=== PATIENT | male | born 1985 | race Caucasian/White ===

== ENCOUNTER 2020-05-22 16:03 | Outpatient (REF) | payer MEDICARE, MEDICAID, SELFPAY | END 2020-05-22 16:04 | disposition home or self-care (01) | LOC: HO.LAB 16:03 | PROVIDERS: PCP Family Medicine; Visit Provider Internal Medicine | DX: Z20.828 Contact with and (suspected) exposure to other viral communicable diseases (principal) | CPT/HCPCS: 87635 ==

== ENCOUNTER 2020-09-17 13:32 | Emergency (ER) | payer MEDICARE, MEDICAID, SELFPAY ==
[2020-09-17 14:23] VITALS: BP 150/102; PULSE 75; RESP 16; TEMP 36.5; O2SAT 98; BMI 34.2
--- NOTE | 2020-09-17 16:56 | ED.SKABFB ---
HPI - Skin/Abscess/Foreign Bdy General Chief complaint: Skin/Abscess/Foreign Body Stated complaint: CYST Time Seen by Provider: 09/17/20 16:56 Source: patient Mode of arrival: ambulatory Limitations: no limitations History of Present Illness HPI narrative: Pleasant 35-year-old male with past medical history that is significant for bipolar disorder, depression, hypertension, prior testicular abscess in fact I seen him in July 2020 for this where he had a testicular abscess that was I and D in the ED and subsequently started antibiotics seen by Dr. Reeder improved states for the past 2 days on the right side of scrotum he has tender area feeling like onset of the same abscess on the opposite side now. He denies any fever or chills. No testicular pain. Pain only to tender palpation over the scrotum. No penile shaft pain, discharge, redness or fever. No concern for STI. MD complaint: abscess/boil Onset (ago): day(s) (2 days ) Location: genitals (Right-sided scrotum) Severity: mild Relieving factors: none Treatments prior to arrival: none Related Data Previous Rx's Medication Instructions Recorded cephalexin 500 mg PO Q12H 7 Days #14 cap 09/17/20 doxycycline monohydrate 100 mg PO BID 10 Days #20 cap 09/17/20 ibuprofen 800 mg PO Q8H PRN #14 tab 09/17/20 Allergies Allergy/AdvReac Type Severity Reaction Status Date / Time No Known Allergies Allergy Unverified 04/19/20 15:27 Review of Systems Review of Systems: Constitutional: No Weight loss, No Fever, No Chills, No Night Sweats, No Fatigue, No Malaise ENT/Mouth: No Hearing loss, No Ear Pain, No Nasal Congestion, No Sinus Pain, No Hoarseness, No sore throat, No Rhinorrhea, No Swallowing Difficulty Eyes: No Eye Pain, No Swelling, No Redness, No Foreign Body, No Discharge, No Vision Changes Cardiovascular: No Chest Pain, No SOB, No Dyspnea on Exertion, No Orthopnea, No Edema, No Palpitations Respiratory: No Cough, No Sputum, No Wheezing, No Dyspnea Gastrointestinal: No Nausea, No Vomiting, No Diarrhea, No Constipation, No abdominal Pain, No Hematochezia, No Melena Genitourinary: No Dysuria, No Urinary Frequency, No Hematuria, No Urinary Incontinence, No Urgency, No Flank Pain, No Urinary Flow Changes, No Hesitancy Musculoskeletal: No joint pain, No Myalgias, No Joint Swelling Skin: No Skin Lesions, No rash, , testicular as noted per HPI Neuro: No Weakness, No Numbness, No Paresthesias, No Loss of Consciousness, No Dizziness, No Headache Psych: No Anxiety/Panic, No Depression, No SI/HI/AH/VH, No Social Issues Heme/Lymph: No Bruising, No Bleeding,No Lymphadenopathy Endocrine: No Polyuria, No Polydipsia, No Temperature Intolerance Yes all other systems are reviewed and are negative [facility] Past Medical History Medical History (Updated 09/18/20 @ 00:01 by Background Dasehba) No known health problems Social History Social History Smoked in Last 30 Days: No Use of substances other than those prescribed or required for medical reasons: No Advance Directives: No Advance Directives Information Provided: No Physical Exam Vital Signs: Vital Signs: Last Vital Signs Temp 98.4 F 09/17/20 17:57 Pulse 61 09/17/20 17:57 Resp 16 09/17/20 17:57 BP 144/82 H 09/17/20 17:57 Pulse Ox 97 09/17/20 17:57 Body Mass Index 34.2 Reviewed Const: General: cooperative and healthy appearing; No acute distress or intoxicated appearing Nutritional Appearance: average body habitus Orientation/consciousness: patient oriented x3 Chest: Chest palpation & inspection: normal inspection of the chest Resp: Effort & Inspection: normal respiratory effort Cardio: Jugular venous distension: no JVD Rhythm: regular rhythm Heart sounds: S1 normal heart sound present and S2 normal heart sound present GI: Inspection: Yes normal to inspection Percussion: Yes normal to percussion Auscultation: normal bowel sounds : General: Yes no CVA tenderness Male genitals images: 1. Hypertrophic area with slight induration/erythema to the mid anterior right scrotum. The testicle is movable and nontender, nonswollen bilaterally. Back/Spine/Pelvis: Back: no CVA tenderness Skin: General skin exam: no rashes or lesions noted Neuro: General: patient oriented x3 Extrem: General: Yes normal to inspection MDM - Skin/Abscess/Foreign Bdy MDM Narrative Medical decision making narrative: Early abscess to the subcutaneous tissue of the right-sided scrotum no drainable collection at this time will start him on p.o. antibiotics with close follow-up with Urology. Patient agreeable and comfortable plan. Differential Diagnosis Differential diagnosis: Likely abscess of skin or subcutaneous tissue and cellulitis; Unlikely viral exanthem, dermatophytosis, urticaria, herpes zoster, allergic reaction to drug, impetigo and contact dermatitis Discharge Plan Discharge Clinical Impression: Abscess of skin or subcutaneous tissue Patient Disposition: Home, Self-Care Instructions: Abscess (ED) Additional Instructions: You have a early forming cellulitis/abscess on the right testicle There is nothing to drain at this point Will start you on antibiotics Please follow-up with Dr. Reeder in next 2-3 days Return if any concerns or worsening symptoms Thank you Prescriptions: New doxycycline monohydrate 100 mg capsule 100 mg PO BID 10 Days Qty: 20 RF: 0 cephalexin 500 mg capsule 500 mg PO Q12H 7 Days Qty: 14 RF: 0 ibuprofen 800 mg tablet 800 mg PO Q8H PRN (Reason: pain) Qty: 14 RF: 0 Referrals: Jatin Reeder MD [Physician] - 2 days Interventions: ED Discharge Assessment Last Done: 09/17/20 17:58 Discharge Date/Time: 09/17/20 18:00
[2020-09-17 17:57] VITALS: BP 144/82; PULSE 61; RESP 16; TEMP 36.9; O2SAT 97
== END 2020-09-17 18:00 | disposition home or self-care (01) ==
PROVIDERS: Emergency Provider Internal Medicine; PCP Family Medicine
DX: N45.4 Abscess of epididymis or testis (principal)
CPT/HCPCS: 99283; 99284

== ENCOUNTER 2021-07-03 10:27 | Outpatient (REF) | payer MEDICARE, MEDICAID, SELFPAY | END 2021-07-03 10:28 | disposition home or self-care (01) | LOC: HO.LAB 10:27 | PROVIDERS: Visit Provider Internal Medicine | DX: Z20.822 Contact with and (suspected) exposure to COVID-19 (principal) | CPT/HCPCS: C9803; U0003; U0005 ==

== ENCOUNTER 2021-07-09 13:26 | Outpatient (REF) | payer MEDICARE, MEDICAID, SELFPAY | END 2021-07-09 13:27 | disposition home or self-care (01) | LOC: HO.LAB 13:26 | PROVIDERS: Visit Provider Internal Medicine | DX: Z20.822 Contact with and (suspected) exposure to COVID-19 (principal) | CPT/HCPCS: C9803; U0003; U0005 ==

== ENCOUNTER 2021-09-18 07:36 | Emergency (ER) | payer MEDICARE, MEDICAID, SELFPAY ==
[2021-09-18 07:38] VITALS: BP 158/93; PULSE 70; RESP 16; TEMP 36.1; O2SAT 98; BMI 38.3
[2021-09-18 07:52] VITALS: BP 158/108; PULSE 78; RESP 18; O2SAT 98; BMI 37.2
--- NOTE | 2021-09-18 07:54 | ED.DENTAL ---
HPI - Dental/Oral General Chief complaint: Dental/Oral Stated complaint: dental pain, facial swelling Time Seen by Provider: 09/18/21 07:53 Source: patient Mode of arrival: ambulatory Limitations: no limitations History of Present Illness HPI Narrative: 36 y/o male who woke up with upper left dental pain this morning. His upper jaw is mildly swollen. No fevers. Patient is able to swallow, can open his mouth all the way. Tooth is not sensitive to hot or cold. He does not feel any lumps inside of his mouth No nausea or vomiting Says 2 months ago he went to see the dentist to start him on antibiotics for teeth on the right side of his mouth. He does have a dentist at [facility]. MD Complaint: tooth pain Teeth map: 1. pain Onset (ago): hour(s) (2) Duration: constant Severity: moderate Severity scale (1-10): 5 Relieving factors: nothing Exacerbating factors: nothing Context: history of dental caries Treatment prior to arrival: none Related Data Previous Rx's Medication Instructions Recorded cephalexin 500 mg capsule 500 mg PO Q12H 7 Days #14 cap 09/17/20 doxycycline monohydrate 100 mg 100 mg PO BID 10 Days #20 cap 09/17/20 capsule ibuprofen 800 mg tablet 800 mg PO Q8H PRN #14 tab 09/17/20 clindamycin HCl 300 mg capsule 300 mg PO Q6H 10 Days #40 cap 09/18/21 Allergies Allergy/AdvReac Type Severity Reaction Status Date / Time No Known Allergies Allergy Unverified 09/18/21 08:07 Review of Systems Constitutional: Constitutional: Denies body ache(s), Denies chills, Denies fatigue, Denies fever(s), Denies headache(s), Denies malaise and Denies weakness Eyes: Eyes: Denies diplopia ENT: Reports dental pain, Denies dizziness, Denies otalgia, Denies headache(s), Denies mouth pain, Denies post nasal drip, Denies sinus pain, Denies sinus pressure and Denies sore throat Cardiovascular: Cardiovascular: Denies chest pain, Denies syncope, Denies lightheadedness, Denies palpitations and Denies dyspnea Respiratory: Respiratory: Denies chest congestion, Denies cough and Denies dyspnea Gastrointestinal: Gastrointestinal: Denies abdominal pain, Denies diarrhea, Denies nausea and Denies vomiting Musculoskeletal: Musculoskeletal: Reports no additional musculoskeletal complaints Neurologic: Denies confusion, Denies dizziness, Denies syncope, Denies headache(s) and Denies weakness Psychiatric: Psychiatric: Denies anxiety, Denies confusion and Denies depression Endocrine: Endocrine: Denies fatigue and Denies palpitations PMFSH Past Medical History Medical History No known health problems Social History Social History Advance Directives: No Advance Directives Information Provided: No Physical Exam Vital Signs: Vital Signs: Last Vital Signs Temp 98.1 F 09/18/21 08:00 Pulse 65 09/18/21 08:00 Resp 18 09/18/21 08:00 BP 159/86 H 09/18/21 08:00 Pulse Ox 98 09/18/21 08:00 BMI result Body Mass Index 37.2 Const: General: No confusion Nutritional Appearance: well nourished Orientation/consciousness: No confusion Limitations: no limitations HENMT: Head: Yes normal to inspection, Yes normocephalic and Yes atraumatic Ears: hearing grossly normal bilaterally General nose exam: Normal external nose present Face and sinus: Yes sinuses nontender, No erythema, No edema, No fluctuance, No sinus tenderness, Yes Facial tenderness on exam of face and sinuses (upper left maxilla) and No dry mucous membranes Mouth: Normal oral and palatal mucosa present, lip normal, tongue normal, Normal salivary glands and ducts present, oropharynx normal and moist mucous membranes Teeth and gingiva: caries and poor dentition Teeth image: 1. tender to tap 2. nub of tooth, brown, avulsed to gum line Throat: Yes posterior oropharynx normal, Yes tonsils normal and Yes uvula midline Eyes: Conjunctivae: conjunctivae normal Pupils: Equal, round and reactive pupils present EOM: EOMs intact bilaterally Neck: Neck: Yes full ROM, Yes no lymphadenopathy and Yes supple Resp: Effort & Inspection: normal respiratory effort and able to speak in complete sentences Auscultation: clear to auscultation bilaterally, no crackles, no rales, no rhonchi and no wheezes Cardio: Rate: regular rate Rhythm: regular rhythm Heart sounds: S1 normal heart sound present and S2 normal heart sound present Skin: General skin exam: no rashes or lesions noted Neuro: General: No confusion Cranial nerves: Yes Equal, round and reactive pupils present Extrem: General: Yes normal to inspection and Yes full ROM Psych: Appearance: grossly normal Affect: normal affect Attitude: cooperative Thought process: Normal thought process present Course Course Course Narrative: 36-year-old male with upper left dental pain that started this morning. Patient came to be seen early, so pain did not worsen. On exam, patient has very mildly swollen upper left face, has pain to palpation tooth 15 in upper left jaw, tooth 16 is avulsed to a nub. No gingival erythema, no gum abscess or fluctuance Counseled patient to call his dentist today, prescribed clindamycin, gave return precautions of fever, trouble opening his mouth, any other new or concerning symptoms. Discharge Plan Discharge Clinical Impression: Dental abscess Patient Disposition: Home, Self-Care Instructions: Dental Abscess (ED) Additional Instructions: Please call your dentist today, tell them you are in the emergency room, you need to make a follow-up appointment with them for your dental pain Please fill the prescription for antibiotic and take every 6 hours for the next 10 days. As we discussed, this can make you have some stomach upset, please take with food, and consider buying [id number] probiotics as this will help with stomach upset Please Duncan can take 2 days of taking the antibiotics for them to help with the pain. Please alternate Tylenol and ibuprofen for pain. Take 1 or the other every 4 hours. For example, at midnight take 1000 mg of Tylenol, then at 4:00 a.m. take 800 mg ibuprofen, at 8:00 a.m. take 1000 mg of Tylenol, at noon take 800 mg of ibuprofen, at 4:00 p.m. take 1000 mg of Tylenol, at 8:00 p.m. take 800 mg of ibuprofen. Do not exceed 3000 mg of Tylenol in 24 hours. This method is proven to be as effective as an opioid for pain control. Please return to the emergency room if you have fevers, worsening pain, nausea or vomiting, or any other new or concerning symptoms. Prescriptions: New clindamycin HCl 300 mg capsule 300 mg PO Q6H 10 Days Qty: 40 0RF No Action doxycycline monohydrate 100 mg capsule 100 mg PO BID 10 Days Qty: 20 0RF cephalexin 500 mg capsule 500 mg PO Q12H 7 Days Qty: 14 0RF ibuprofen 800 mg tablet 800 mg PO Q8H PRN (Reason: pain) Qty: 14 0RF Interventions: ED Discharge Assessment Last Done: 09/18/21 08:37 Discharge Date/Time: 09/18/21 08:37
[2021-09-18 08:00] VITALS: BP 159/86; PULSE 65; RESP 18; TEMP 36.7; O2SAT 98
== END 2021-09-18 08:37 | disposition home or self-care (01) ==
LOC: HO.ED 08:12
PROVIDERS: Emergency Provider Emergency Medicine; PCP Family Medicine
DX: K04.7 Periapical abscess without sinus (principal); K08.89 Other specified disorders of teeth and supporting structures
CPT/HCPCS: 99283; 99284

== ENCOUNTER 2022-04-04 18:59 | Emergency (ER) | payer MEDICARE, MEDICAID, SELFPAY | END 2022-04-04 20:06 | disposition left against medical advice (07) | PROVIDERS: Emergency Provider Emergency Medicine; PCP Family Medicine | DX: Z04.9 Encounter for examination and observation for unspecified reason (principal) ==

== ENCOUNTER 2022-04-04 21:02 | Emergency (ER) | payer MEDICARE, MEDICAID, SELFPAY ==
--- NOTE | ~2022-04-04 | US_ITS ---
EXAMINATION: US SCROTUM CLINICAL INFORMATION: Large mass in the scrotum. COMPARISON: None TECHNIQUE: A sonogram of the scrotum was performed assessing sanabria-scale appearance and color Doppler flow. Spectral Doppler analysis of the arterial and venous flow were performed in the testes bilaterally. FINDINGS: RIGHT: Right testicle measures 4.2 x 2.5 x 2.8 cm, volume 15 mL. No focal testicular parenchymal lesions are visualized. Spectral Doppler analysis of the arterial and venous flow is normal in the right testis. Right epididymal head is normal in size. No right hydrocele or varicocele is seen. Right epididymal Doppler flow is increased. There is a fat-containing right inguinal hernia extending into the scrotum. LEFT: Left testicle measures 4.6 x 2.7 x 2.5 cm, volume 16 mL. No focal testicular parenchymal lesions are visualized. Spectral Doppler analysis of the arterial and venous flow is normal in the left testis. Left epididymal head is normal in size. No left hydrocele or varicocele is seen. Left epididymal Doppler flow is normal. Within the inferior scrotum is a focal area of heterogeneous echotexture with peripheral hypervascularity in central hypovascularity measuring 4.0 x 3.5 x 1.6 cm suspicious for phlegmonous change/abscess formation. US/US scrotum IMPRESSION: * Focal area of scrotal wall thickening and heterogeneous echotexture reflective of probable phlegmonous change or developing abscess within the inferior scrotal wall measuring 4.0 x 2.5 x 1.6 cm. * Findings suggestive of right epididymitis. * Fat-containing right inguinal hernia extending into the scrotum. * No testicular torsion.
[2022-04-04 21:08] VITALS: BP 156/106; PULSE 74; RESP 99; TEMP 35.8; O2SAT 99; BMI 36.8
[2022-04-05 00:56] VITALS: BP 163/99; PULSE 62; RESP 16; TEMP 36.8; O2SAT 98
[2022-04-05 02:32] VITALS: BP 146/74; PULSE 68; RESP 16; TEMP 36.9; O2SAT 98
--- NOTE | 2022-04-05 02:59 | ED.GENADULT ---
HPI - General Adult General Chief complaint: Skin/Abscess/Foreign Body <PALMIRA Ruggiero Last Filed: 04/05/22 03:14> Stated complaint: Cyst <PALMIRA Ruggiero Last Filed: 04/05/22 03:14> Time Seen by Provider: 04/05/22 00:46 <PALMIRA Ruggiero Last Filed: 04/05/22 03:14> Source: patient <PALMIRA Ruggiero Last Filed: 04/05/22 03:14> Mode of arrival: ambulatory <PALMIRA Ruggiero Last Filed: 04/05/22 03:14> Limitations: no limitations <PALMIRA Ruggiero Last Filed: 04/05/22 03:14> History of Present Illness HPI narrative: Patient is a 37 year old male presenting to the emergency department today with a scrotum cyst. Patient states that over the last 3 weeks he has had 2 lumps on the right side of his scrotum. Patient states that one of them, the smaller one, popped and drained outward but the other one has only kept getting better. Patient denies any dizziness, lightheadedness, abdominal pain, nausea, vomiting, fever, chills, blurry vision, double vision, loss of vision, chest pain, difficulty breathing, shortness of breath, back pain, night sweats, pain with urination, increased urinary frequency, increased urinary urgency, blood in his urine or stool, syncope or a near syncopal episode, recent trauma or falls, bowel incontinence, bladder incontinence, bowel retention, bladder retention, or any other complaints at this time. <PALMIRA Ruggiero Last Filed: 04/05/22 03:14> Onset (ago): week(s) (3) <PALMIRA Ruggiero Last Filed: 04/05/22 03:14> Radiation: non-radiation <PALMIRA Ruggiero Last Filed: 04/05/22 03:14> Severity: mild <PALMIRA Ruggiero Last Filed: 04/05/22 03:14> Severity scale (1-10): 5 <PALMIRA Ruggiero Last Filed: 04/05/22 03:14> Pain Consistency: constant <PALMIRA Ruggiero Last Filed: 04/05/22 03:14> Relieving factors: none <PALMIRA Ruggiero Last Filed: 04/05/22 03:14> Exacerbating factors: none <PALMIRA Ruggiero Last Filed: 04/05/22 03:14> Associated symptoms: denies other symptoms <PALMIRA Ruggiero Last Filed: 04/05/22 03:14> Treatments prior to arrival: none <PALMIRA Ruggiero Last Filed: 04/05/22 03:14> Related Data Home medications: Previous Rx's Medication Instructions Recorded cephalexin 500 mg capsule 500 mg PO Q12H 7 days #14 caps 09/17/20 doxycycline monohydrate 100 mg 100 mg PO BID 10 days #20 caps 09/17/20 capsule ibuprofen 800 mg tablet 800 mg PO Q8H PRN pain #14 tabs 09/17/20 clindamycin HCl 300 mg capsule 300 mg PO Q6H 10 days #40 caps 09/18/21 <PALMIRA Ruggiero Last Filed: 04/05/22 03:14> Allergies/adverse reactions: Allergies Allergy/AdvReac Type Severity Reaction Status Date / Time No Known Allergies Allergy Unverified 09/18/21 08:07 <PALMIRA Ruggiero Last Filed: 04/05/22 03:14> Review of Systems Constitutional: Constitutional: Reports no additional constitutional complaints, Denies chills, Denies fever(s) and Denies night sweats <PALMIRA Ruggiero Last Filed: 04/05/22 03:14> Eyes: Eyes: Reports no additional eye complaints, Denies blurry vision, Denies change in vision, Denies diplopia, Denies eye discharge, Denies loss of vision and Denies eye pain <PALMIRA Ruggiero Last Filed: 04/05/22 03:14> ENT: Denies dizziness <PALMIRA Ruggiero - Last Filed: 04/05/22 03:14> Cardiovascular: Cardiovascular: Reports no additional cardiovascular complaints, Denies chest pain, Denies lightheadedness, Denies Loss of Consciousness and Denies dyspnea <PALMIRA Ruggiero Last Filed: 04/05/22 03:14> Respiratory: Respiratory: Reports no additional respiratory complaints and Denies dyspnea <PALMIRA Ruggiero - Last Filed: 04/05/22 03:14> Gastrointestinal: Gastrointestinal: Reports no additional gastrointestinal complaints, Denies abdominal pain, Denies melena, Denies hematochezia, Denies change in bowel habits and Denies change in stool character <PALMIRA Ruggiero - Last Filed: 04/05/22 03:14> Genitourinary: Genitourinary: Reports no additional male genitourinary complaints, Denies hematuria, Denies oliguria, Denies difficulty urinating, Denies dysuria, Reports testicular mass, Reports testicular pain, Denies urinary frequency, Denies urinary hesitancy, Denies urinary incontinence and Denies urinary urgency <PALMIRA Ruggiero - Last Filed: 04/05/22 03:14> Musculoskeletal: Musculoskeletal: Reports no additional musculoskeletal complaints, Denies numbness and Denies tingling <PALMIRA Ruggiero - Last Filed: 04/05/22 03:14> Neurologic: Denies dizziness, Denies loss of vision, Denies numbness and Denies tingling <PALMIRA Ruggiero - Last Filed: 04/05/22 03:14> Psychiatric: Psychiatric: Reports no additional psychiatric complaints <PALMIRA Ruggiero - Last Filed: 04/05/22 03:14> Endocrine: Endocrine: Reports no additional endocrine complaints <PALMIRA Ruggiero - Last Filed: 04/05/22 03:14> Hematologic/Lymphatic: Hematologic/Lymphatic: Reports no additional hematologic/lymphatic complaints <PALMIRA Ruggiero - Last Filed: 04/05/22 03:14> Allergic/Immunologic: Allergic/Immunologic: Reports no additional allergic/immunologic complaints <PALMIRA Ruggiero - Last Filed: 04/05/22 03:14> PMF Past Medical History Attestation statement: The following information was validated with the patient. <PALMIRA Ruggiero - Last Filed: 04/05/22 03:14> Source: old records reviewed <PALMIRA Ruggiero - Last Filed: 04/05/22 03:14> Medical History: Medical History No known health problems <PALMIRA Ruggiero - Last Filed: 04/05/22 03:14> Social History Social History: Social History Patient Tobacco Use Status: Current everyday Tobacco user Smoked in Last 30 Days: Yes Use of substances other than those prescribed or required for medical reasons: No Advance Directives: No <PALMIRA Ruggiero - Last Filed: 04/05/22 03:14> Physical Exam ED Vital Signs: Vital Signs - 24 hr 04/04/22 21:08 04/05/22 00:56 04/05/22 02:32 Temperature 96.4 F L 98.2 F 98.4 F Pulse Rate 74 62 68 Respiratory Rate 99 H 16 16 Blood Pressure 156/106 H 163/99 H 146/74 H Pulse Oximetry 99 98 98 Oxygen Delivery Method Room Air Room Air Room Air 04/05/22 05:32 Temperature 98.0 F Pulse Rate 63 Respiratory Rate 16 Blood Pressure 146/80 H Pulse Oximetry 98 Oxygen Delivery Method Room Air BMI result Body Mass Index 36.8 <PALMIRA Ruggiero - Last Filed: 04/05/22 03:14> Vital Signs - 24 hr 04/04/22 21:08 04/05/22 00:56 04/05/22 02:32 Temperature 96.4 F L 98.2 F 98.4 F Pulse Rate 74 62 68 Respiratory Rate 99 H 16 16 Blood Pressure 156/106 H 163/99 H 146/74 H Pulse Oximetry 99 98 98 Oxygen Delivery Method Room Air Room Air Room Air 04/05/22 05:32 Temperature 98.0 F Pulse Rate 63 Respiratory Rate 16 Blood Pressure 146/80 H Pulse Oximetry 98 Oxygen Delivery Method Room Air BMI result Body Mass Index 36.8 <Edilberto Mccloud MD - Last Filed: 04/05/22 09:21> Const General: cooperative, no acute distress, alert and awake <PALMIRA Ruggiero - Last Filed: 04/05/22 03:14> Nutritional Appearance: well nourished <PALMIRA Ruggiero - Last Filed: 04/05/22 03:14> Orientation/consciousness: patient oriented x3 <PALMIRA Ruggiero - Last Filed: 04/05/22 03:14> Limitations: no limitations <PALMIRA Ruggiero - Last Filed: 04/05/22 03:14> HENMT Head: Yes normal to inspection and Yes atraumatic <Loida Piers[place]ana [place] - Last Filed: 04/05/22 03:14> Ears: hearing grossly normal bilaterally and external ears normal <Loida PiersonPALMIRA anne - Last Filed: 04/05/22 03:14> General nose exam: Normal external nose present, no nasal discharge noted and no epistaxis <Loidajohanna Piers[place] - Last Filed: 04/05/22 03:14> Face and sinus: Yes normal facial exam, No abrasion and No laceration <Loidajohanna Piers[place] - Last Filed: 04/05/22 03:14> Mouth: Normal oral and palatal mucosa present, no drooling and no muffled voice <Loida Griffin [place] - Last Filed: 04/05/22 03:14> Eyes General: appearance normal, both eyes and all related structures <Loida [place] - Last Filed: 04/05/22 03:14> Periorbital: periorbital findings normal <Loida [place] - Last Filed: 04/05/22 03:14> Eyelids: Yes eyelids normal <Loida Piers[place] - Last Filed: 04/05/22 03:14> Conjunctivae: conjunctivae normal <Loida Griffin, [place] - Last Filed: 04/05/22 03:14> Pupils: Equal, round and reactive pupils present <Loidajohanna Piers[place] - Last Filed: 04/05/22 03:14> EOM: EOMs intact bilaterally <PALMIRA Ruggiero - Last Filed: 04/05/22 03:14> Neck Neck: Yes normal visual inspection, Yes full ROM and Yes no lymphadenopathy <Loida Gaby [place] - Last Filed: 04/05/22 03:14> Chest Chest palpation & inspection: normal inspection of the chest <PALMIRA Ruggiero - Last Filed: 04/05/22 03:14> Resp Effort & Inspection: normal respiratory effort and able to speak in complete sentences <PALMIRA Ruggiero - Last Filed: 04/05/22 03:14> Auscultation: clear to auscultation bilaterally <PALMIRA Ruggiero - Last Filed: 04/05/22 03:14> Cardio Rate: regular rate <PALMIRA Ruggiero - Last Filed: 04/05/22 03:14> Rhythm: regular rhythm <Loida Piersondayana [place] - Last Filed: 04/05/22 03:14> GI Inspection: Yes normal to inspection <Loida PiersonPALMIRA anne - Last Filed: 04/05/22 03:14> Scrotum: scrotal mass on the right firm and tender <Loidajohanna Piers[place] - Last Filed: 04/05/22 03:14> Neuro General: patient oriented x3 and moves all extremities <Loida Piersondayana PA - Last Filed: 04/05/22 03:14> Cranial nerves: Yes Equal, round and reactive pupils present <Loidajohanna Piersondayana PA - Last Filed: 04/05/22 03:14> Cognition (Neuro): normal cognition <Loida P[place] - Last Filed: 04/05/22 03:14> Motor exam (neuro): 5/5 motor strength present throughout <Loidajohanna Piers[place] - Last Filed: 04/05/22 03:14> Sensory Exam: Normal double simultaneous stimulation for sensation <Loida Piers[place] - Last Filed: 04/05/22 03:14> Coordination: [id number] test normal <Loidajohanna Piers[place] - Last Filed: 04/05/22 03:14> Extrem General: Yes normal to inspection, Yes full ROM and Yes capillary refill normal <Loida Piersondayana PA - Last Filed: 04/05/22 03:14> Psych Appearance: grossly normal <Loida PALMIRA Griffin - Last Filed: 04/05/22 03:14> Mental Status: mental status grossly normal <Loidajohanna PiersonPALMIRA anne - Last Filed: 04/05/22 03:14> Affect: normal affect <Loida Griffin PA - Last Filed: 04/05/22 03:14> Attitude: cooperative <PALMIRA Ruggiero - Last Filed: 04/05/22 03:14> Thought process: Normal thought process present <PALMIRA Ruggiero - Last Filed: 04/05/22 03:14> Thought content: Normal thought content present <PALMIRA Ruggiero - Last Filed: 04/05/22 03:14> Insight: Good insight present (Psych) <PALMIRA Ruggiero - Last Filed: 04/05/22 03:14> Course Course Course Narrative: [id number]: I assumed care of this patient from my colleague, physician emergency veterinary assistant Loida Griffin at 02:00 hours. I did interview and examine the patient. Patient states that he does to small lump in his right scrotum approximately 3 or 4 weeks prior. He believes that is approximately 1 cm in size. He states that he got slightly larger but then got smaller again. Three days prior however the lump became very large and painful. He also states that the skin of his scrotum became red. He states that he is having a constant, throbbing pain in his right scrotal area which is 8/10. He denied fever chills but he is having nausea. He did notice dysuria with no penile discharge. He states he did have an abscess to his scrotum in the past which required drainage. Patient's physical examination revealed a large firm mass to the right scrotum with surrounding erythema, the area is tender to palpation. The patient is uncircumcised and the ball the penis looks normal. There is no obvious urethral discharge. Duplex ultrasound radiology impression is as follows: IMPRESSION: * Focal area of scrotal wall thickening and heterogeneous echotexture reflective of probable phlegmonous change or developing abscess within the inferior scrotal wall measuring 4.0 x 2.5 x 1.6 cm. * Findings suggestive of right epididymitis. * Fat-containing right inguinal hernia extending into the scrotum. * No testicular torsion. Dictated By:Thomas Montero MD I did tiger text our urologist, Dr. Reeder. He recommended that the abscess be drained here in the emergency department. He also recommended a 14 day course of antibiotics. I did order normal saline IV x1 L, ceftriaxone 1 g IV morphine 4 mg IV, Zofran 4 mg IV and Toradol 30 mg IV. At the end of my shift, the patient's care was turned over to my colleague, physician emergency veterinary assistant Liz Cabezas who will drain the patient's abscess. We also obtain abscess wound culture, GC/ chlamydia urine test and urinalysis. <Edilberto Mccloud MD - Last Filed: 04/05/22 09:21> Medical Decision Making MDM Narrative Medical decision making narrative: Patient is a 37 year old male presenting to the emergency department today with scrotal swelling and pain. Patient's physical exam showed a large, firm, tender, mass to the right side of his scrotum. No warmth or erythema was appreciated. Patient's scrotal US is pending at this time. Patient's disposition pending scrotal US. Patient signed out to Dr. Mccloud. <PALMIRA Ruggiero - Last Filed: 04/05/22 03:14> Medical Records Medical records reviewed: Yes I reviewed the patient's medical records. <PALMIRA Ruggiero - Last Filed: 04/05/22 03:14> Discharge Plan Discharge Clinical Impression: Scrotal swelling, Scrotal abscess, Acute epididymitis <PALMIRA Ruggiero - Last Filed: 04/05/22 03:14> Patient Disposition: Still a Patient <PALMIRA Ruggiero - Last Filed: 04/05/22 03:14> Prescriptions: No Action doxycycline monohydrate 100 mg capsule 100 mg PO BID 10 Days Qty: 20 0RF cephalexin 500 mg capsule 500 mg PO Q12H 7 Days Qty: 14 0RF ibuprofen 800 mg tablet 800 mg PO Q8H PRN (Reason: pain) Qty: 14 0RF clindamycin HCl 300 mg capsule 300 mg PO Q6H 10 Days Qty: 40 0RF <PALMIRA Ruggiero - Last Filed: 04/05/22 03:14>
--- NOTE | 2022-04-05 03:23 | PC.NURSE ---
Pt c/o of R scrotal pain that he believes it to be a cyst. The pain radiates to the abdominal region. He noticed the 'cyst' about three weeks ago, but has grown concerned due to the 'cyst's' growth and increasing amount of pain he is experiencing.
[2022-04-05 05:32] VITALS: BP 146/80; PULSE 63; RESP 16; TEMP 36.7; O2SAT 98
--- NOTE | 2022-04-05 06:40 | PC.NURSE ---
no apparent distressed, pt is sleeping
[2022-04-05] MEDS: Ketorolac Tromethamine 15 MG/ML VIAL IVPUSH (09:01)
[2022-04-05] MEDS: Lidocaine HCl 2% PF/Epi 1:200 20 ML VIAL INFILTRATI (09:01)
[2022-04-05] MEDS: Morphine Sulfate 4 MG/ML CARTRIDGE IVPUSH (09:02)
[2022-04-05] MEDS: cefTRIAXone sodium 1 GM in 0.9 % Sodium Chloride 50 ML IV (09:02)
[2022-04-05] MEDS: ondansetron HCL 4 MG/2 ML VIAL IVPUSH (09:02)
[2022-04-05 11:00] LABS: Appearance Urine Clear; Color Urine Dark Yellow; Glucose Urine UA Negative (Negative); Leukocyte Esterase Urine Negative (Negative); Nitrite Urine Negative (Negative); PH 5.5 (5.0-9.0); Specific Gravity - Urine >= 1.030 (1.005-1.025); Urine Blood Negative (Negative); Urine Ketones Negative (Negative); Urine Protein Negative (Neg-Trace)
[2022-04-05 13:32] LABS: CT PCR NOT DETECTED (Not Detect.); NG PCR NOT DETECTED (Not Detect.)
== END 2022-04-05 11:31 | disposition home or self-care (01) ==
PROVIDERS: Emergency Provider Emergency Medicine Emergency Medical Services; PCP Family Medicine
DX: L72.9 Follicular cyst of the skin and subcutaneous tissue, unspecified (principal); N45.1 Epididymitis; K40.90 Unilateral inguinal hernia, without obstruction or gangrene, not specified as recurrent; N50.89 Other specified disorders of the male genital organs; Z20.822 Contact with and (suspected) exposure to COVID-19; Z20.2 Contact with and (suspected) exposure to infections with a predominantly sexual mode of transmission; Z79.899 Other long term (current) drug therapy
CPT/HCPCS: 55100; 76870; 81003; 87071; 87147; 87205; 87491; 87591; 96365; 96375; 99284; J0696; J1885; J2270; J2405

== ENCOUNTER 2022-12-18 00:01 | Emergency (ER) | payer MEDICARE, MEDICAID, SELFPAY ==
[2022-12-18 00:25] VITALS: BP 153/82; PULSE 87; RESP 18; TEMP 36.8; O2SAT 96; BMI 38.7
--- NOTE | 2022-12-18 03:49 | ED_ITS ---
HPI - Back Pain/Injury General Chief Complaint: Back Pain/Injury Stated Complaint: severe back spasm Time Seen by Provider: 12/18/22 03:36 Source: patient Mode of arrival: ambulatory Limitations: no limitations History of Present Illness HPI Narrative: 37-year-old male who presents emergency department for evaluation of back pain. Patient states that his friend moved into a new house and he was helping his friend moving clean out the house. He states that he was picking up items from the ground lifting over his head and throwing them into a dumpster. He does not recount any injury while he was working but when he went home he started to developed mid and lower back pain. He describes the pain is a pressure like pain which is constant is 10/10. Pain is worse with movement. He states that he used ice, heat, icy Hot and a muscle relaxant at home with no relief of his pain. He states that the pain is radiating to both hips. He denies any numbness or weakness in his legs. He denies loss of bowel or bladder control. He was not ill in any way prior to his back pain. He denied fever, chills or injection drug use. Related Data Previous Rx's Medication Instructions Recorded cephalexin 500 mg capsule 500 mg PO Q12H 7 days #14 caps 09/17/20 doxycycline monohydrate 100 mg 100 mg PO BID 10 days #20 caps 09/17/20 capsule ibuprofen 800 mg tablet 800 mg PO Q8H PRN pain #14 tabs 09/17/20 clindamycin HCl 300 mg capsule 300 mg PO Q6H 10 days #40 caps 09/18/21 cephalexin 500 mg capsule 500 mg PO QID 14 days #56 caps 04/05/22 doxycycline hyclate 100 mg tablet 100 mg PO BID 14 days #28 tabs 04/05/22 acetaminophen 500 mg tablet 1,000 mg PO Q6H PRN fever or pain 12/18/22 (Tylenol Extra Strength) #20 tabs cyclobenzaprine 10 mg tablet 10 mg PO TID PRN muscle pain or 12/18/22 spasm #20 tabs ibuprofen 400 mg tablet 400 mg PO TID PRN fever or pain 12/18/22 #30 tabs Allergies Allergy/AdvReac Type Severity Reaction Status Date / Time No Known Allergies Allergy Unverified 09/18/21 08:07 Review of Systems Review of Systems: Yes all other systems are reviewed and are negative [facility] Past Medical History [facility] Narrative: Social history: He does smoke cigarettes. He occasionally drinks alcohol. He denies drug use. Medical History No known health problems Social History Social History Patient Tobacco Use Status: Current everyday Tobacco user Smoked in Last 30 Days: No Use of substances other than those prescribed or required for medical reasons: No Advance Directives: No Advance Directives Information Provided: No Physical Exam Vital Signs: Vital Signs: Last Vital Signs Temp 98.3 F 12/18/22 00:25 Pulse 87 12/18/22 00:25 Resp 18 12/18/22 00:25 BP 153/82 H 12/18/22 00:25 Pulse Ox 96 12/18/22 00:25 O2 Del Method Room Air 12/18/22 00:25 BMI result Body Mass Index 38.7 Const: Other: Awake, alert, male patient, pleasant, cooperative, patient had significant difficulty sitting up on the stretcher secondary to his back pain and spasm, answers all questions appropriately. Elevated BMI of 38.8 HEENT: Head: Yes normal to inspection, Yes normocephalic and Yes atraumatic Ears: external ears normal General nose exam: Normal external nose present Face and sinus: Yes normal facial exam Mouth: Normal oral and palatal mucosa present Throat: Yes posterior oropharynx normal Eyes: General: appearance normal, both eyes and all related structures Pupils: Equal, round and reactive pupils present Neck: Neck: Yes normal visual inspection, Yes no lymphadenopathy, Yes trachea midline and Yes supple Chest: Chest palpation & inspection: normal inspection of the chest and normal palpation of entire chest wall Resp: Effort & Inspection: normal respiratory effort and able to speak in complete sentences Auscultation: clear to auscultation bilaterally Cardio: Rate: regular rate Rhythm: regular rhythm Heart sounds: S1 normal heart sound present, S2 normal heart sound present and no murmurs GI: Inspection: Yes normal to inspection Palpation (GI): Soft to palpation, nontender and no guarding Auscultation: normal bowel sounds Back/Spine/Pelvis: Other: No point tenderness palpation over his vertebrae, patient has significant tenderness palpation of his paraspinal muscles in the thoracic, lumbar and sacral areas. There is spasm of these muscles. He has negative straight leg raises bilaterally. Skin: General skin exam: no rashes or lesions noted Neuro: Cranial nerves: Yes CN's II-XII intact bilaterally and Yes Equal, round and reactive pupils present Cognition (Neuro): normal cognition Motor exam (neuro): 5/5 motor strength present throughout Extrem: General: Yes normal to inspection Psych: Appearance: grossly normal Speech and movement: Normal speech and movement present Affect: normal affect Attitude: cooperative Thought process: Normal thought process present Thought content: Normal thought content present Medical Decision Making Medical Decision Making MDM Narrative: 37-year-old male who presents emergency department for evaluation of back pain that started after he lifted multiple objects from the floor over his had to throw into a dumpster while he was helping his friend clean out his house. The patient did have significant tenderness with palpation of his paraspinal muscles in the thoracic lumbar and sacral area as well as spasm of these muscles. His neurologic exam is nonfocal. Patient was treated with ibuprofen 400 mg orally, Tylenol 1000 mg orally and Flexeril 10 mg orally. He was given prescription for these medications. He was given a work note . he was given printed instructions and discharged home Differential Diagnosis Differential diagnosis includes was not limited to muscle spasm, muscle strain, muscle sprain, disc disease, infectious process Discharge Plan Discharge Clinical Impression: Strain of muscle and tendon of back wall of thorax, initial encounter, Muscle spasm Acute lumbar myofascial strain Qualifiers: Encounter type: initial encounter Qualified Code(s): S39.012A - Strain of muscle, fascia and tendon of lower back, initial encounter Patient Disposition: Home, Self-Care Instructions: Acute Low Back Pain (ED) Additional Instructions: Back Pain Discharge Instructions: Take Motrin (ibuprofen) 200 mg pills, 2 pills every 6 hours as needed for pain. Take Tylenol (acetaminophen) 500 mg pills, 2 pills every 6 hours as needed for pain. Take Flexeril (cyclobenzaprine) 10 mg pills, 1 pill every 8 hours as needed for pain or muscle spasm. This is a prescription medication. This medication will make you sleepy, therefore do not drive or work while taking this medication. Apply ice for 15 minutes to the area that hurts on your back. Do this 4-6 times a day to help reduce the pain in your back. Continue with normal activities as tolerated since staying in bed and not moving around will make your pain worse. You can also try over the counter lidocaine patches as directed on the box to help with the pain. Please return to the Emergency Department or see your doctor immediately if your symptoms get worse or if you develop any new symptoms that are concerning you. Follow up with your doctor in 2 day. Please read the other printed discharge instructions on back pain. Please see work note Prescriptions: New cyclobenzaprine 10 mg tablet 10 mg PO TID PRN (Reason: muscle pain or spasm) Qty: 20 0RF acetaminophen [Tylenol Extra Strength] 500 mg tablet 1,000 mg PO Q6H PRN (Reason: fever or pain) Qty: 20 0RF ibuprofen 400 mg tablet 400 mg PO TID PRN (Reason: fever or pain) Qty: 30 0RF No Action doxycycline monohydrate 100 mg capsule 100 mg PO BID 10 Days Qty: 20 0RF cephalexin 500 mg capsule 500 mg PO Q12H 7 Days Qty: 14 0RF ibuprofen 800 mg tablet 800 mg PO Q8H PRN (Reason: pain) Qty: 14 0RF clindamycin HCl 300 mg capsule 300 mg PO Q6H 10 Days Qty: 40 0RF cephalexin 500 mg capsule 500 mg PO QID 14 Days Qty: 56 0RF doxycycline hyclate 100 mg tablet 100 mg PO BID 14 Days Qty: 28 0RF Stand Alone Forms: Work/School Release
[2022-12-18] MEDS: Cyclobenzaprine HCl 10 MG TABLET PO (04:14)
[2022-12-18] MEDS: Acetaminophen 325 MG TABLET 975 MG PO (04:15)
[2022-12-18] MEDS: Ibuprofen 400 MG TABLET PO (04:15)
== END 2022-12-18 04:21 | disposition home or self-care (01) ==
PROVIDERS: Emergency Provider Emergency Medicine Emergency Medical Services; PCP Family Medicine
DX: S29.012A Strain of muscle and tendon of back wall of thorax, initial encounter (principal); S39.012A Strain of muscle, fascia and tendon of lower back, initial encounter; X50.0XXA Overexertion from strenuous movement or load, initial encounter; Y93.E6 Activity, residential relocation; Y92.009 Unspecified place in unspecified non-institutional (private) residence as the place of occurrence of the external cause; Y99.9 Unspecified external cause status
CPT/HCPCS: 99283; 99284

== ENCOUNTER 2023-11-30 12:40 | Inpatient (IN) | payer MEDICARE, MEDICAID, SELFPAY ==
--- NOTE | 2023-11-30 | ECG_ITS ---
Test Reason : chest pain Blood Pressure : / mmHG Vent. Rate : 057 BPM Atrial Rate : 057 BPM P-R Int : 148 ms QRS Dur : 090 ms QT Int : 418 ms P-R-T Axes : 002 -06 006 degrees QTc Int : 406 ms Sinus bradycardia Minimal voltage criteria for LVH, may be normal variant ( R in aVL ) Nonspecific T wave abnormality Abnormal ECG No significant changes when compared with the previous EKG of 09 january 2016 Referred By: Generic ED Physician Electronically Signed By:ARABELLA PARDO
--- NOTE | 2023-11-30 12:57 | ED.GENADULT ---
HPI - General Adult General Chief complaint: Chest Pain Stated complaint: Chest pain Time Seen by Provider: 11/30/23 19:49 Source: patient Mode of arrival: ambulatory Limitations: no limitations History of Present Illness HPI narrative: Patient is a 38 year old assigned male at with no reported medical history presenting to the emergency department today with chest and left arm pain over the last 3 days. Patient states that over the last 3 days he has had worsening left sided arm pain and chest pain. Patient states that it is worse with exertion but still present at rest. Patient denies any dizziness, lightheadedness, abdominal pain, nausea, vomiting, fever, chills, blurry vision, double vision, loss of vision, difficulty breathing, shortness of breath, back pain, night sweats, pain with urination, increased urinary frequency, increased urinary urgency, blood in his urine or stool, syncope or a near syncopal episode, recent trauma or falls, bowel incontinence, bladder incontinence, bowel retention, bladder retention, or any other complaints at this time. Onset (ago): day(s) (3) Location: chest Radiation: extremity Severity: moderate Severity scale (1-10): 5 Quality: aching Pain Consistency: constant Relieving factors: none Exacerbating factors: other (exertion) Associated symptoms: chest pain Treatments prior to arrival: none Related Data Previous Rx's ?Medication ?Instructions ?Recorded cephalexin 500 mg capsule 500 mg PO Q12H 7 days #14 caps 09/17/20 doxycycline monohydrate 100 mg 100 mg PO BID 10 days #20 caps 09/17/20 capsule ibuprofen 800 mg tablet 800 mg PO Q8H PRN pain #14 tabs 09/17/20 clindamycin HCl 300 mg capsule 300 mg PO Q6H 10 days #40 caps 09/18/21 cephalexin 500 mg capsule 500 mg PO QID 14 days #56 caps 04/05/22 doxycycline hyclate 100 mg tablet 100 mg PO BID 14 days #28 tabs 04/05/22 acetaminophen 500 mg tablet 1,000 mg (2 x 500 mg) PO Q6H PRN 12/18/22 (Tylenol Extra Strength) fever or pain #20 tabs cyclobenzaprine 10 mg tablet 10 mg PO TID PRN muscle pain or 12/18/22 spasm #20 tabs ibuprofen 400 mg tablet 400 mg PO TID PRN fever or pain 12/18/22 #30 tabs Allergies Allergy/AdvReac Type Severity Reaction Status Date / Time No Known Allergies Allergy Verified 11/30/23 12:59 Review of Systems Constitutional: Constitutional: Reports no additional constitutional complaints, Denies chills, Denies fever(s) and Denies night sweats Eyes: Eyes: Reports no additional eye complaints, Denies blurry vision, Denies change in vision, Denies diplopia, Denies eye discharge, Denies loss of vision and Denies eye pain ENT: Denies dizziness Cardiovascular: Cardiovascular: Reports no additional cardiovascular complaints, Reports chest pain (radiating to left arm), Denies lightheadedness, Denies Loss of Consciousness and Denies dyspnea Respiratory: Respiratory: Reports no additional respiratory complaints and Denies dyspnea Gastrointestinal: Gastrointestinal: Reports no additional gastrointestinal complaints, Denies abdominal pain, Denies melena, Denies hematochezia, Denies change in bowel habits and Denies change in stool character Genitourinary: Genitourinary: Reports no additional male genitourinary complaints, Denies hematuria, Denies oliguria, Denies difficulty urinating, Denies dysuria, Denies urinary frequency, Denies urinary hesitancy, Denies urinary incontinence and Denies urinary urgency Musculoskeletal: Musculoskeletal: Reports no additional musculoskeletal complaints, Denies numbness and Denies tingling Neurologic: Denies dizziness, Denies loss of vision, Denies numbness and Denies tingling Psychiatric: Psychiatric: Reports no additional psychiatric complaints Endocrine: Endocrine: Reports no additional endocrine complaints Hematologic/Lymphatic: Hematologic/Lymphatic: Reports no additional hematologic/lymphatic complaints Allergic/Immunologic: Allergic/Immunologic: Reports no additional allergic/immunologic complaints [facility] Past Medical History Attestation statement: The following information was validated with the patient. Source: old records reviewed and nursing notes reviewed Medical History No known health problems Social History Social History Patient Tobacco Use Status: Current everyday Tobacco user Advance Directives: No Advance Directives Information Provided: Yes Do you have a plan to hurt others: No Plan Physical Exam ED Vital Signs: Vital Signs - 24 hr 11/30/23 12:58 Temperature 97.5 F Pulse Rate 77 Respiratory Rate 18 Blood Pressure 174/105 H Pulse Oximetry 96 Oxygen Delivery Method Room Air BMI result Body Mass Index 37.7 Const General: cooperative, no acute distress, alert and awake Nutritional Appearance: well nourished Orientation/consciousness: patient oriented x3 Limitations: no limitations HENMT Head: Yes normal to inspection and Yes atraumatic Ears: hearing grossly normal bilaterally and external ears normal General nose exam: Normal external nose present, no nasal discharge noted and no epistaxis Face and sinus: Yes normal facial exam, No abrasion and No laceration Mouth: Normal oral and palatal mucosa present, no drooling and no muffled voice Eyes General: appearance normal, both eyes and all related structures Periorbital: periorbital findings normal Eyelids: Yes eyelids normal Conjunctivae: conjunctivae normal Pupils: Equal, round and reactive pupils present EOM: EOMs intact bilaterally Neck Neck: Yes normal visual inspection, Yes full ROM and Yes no lymphadenopathy Chest Chest palpation & inspection: normal inspection of the chest Resp Effort & Inspection: normal respiratory effort and able to speak in complete sentences GI Inspection: Yes normal to inspection Neuro General: patient oriented x3 and moves all extremities Cranial nerves: Yes Equal, round and reactive pupils present Cognition (Neuro): normal cognition Motor exam (neuro): 5/5 motor strength present throughout Sensory Exam: Normal double simultaneous stimulation for sensation Coordination: [id number] test normal Extrem General: Yes normal to inspection, Yes full ROM and Yes capillary refill normal Psych Appearance: grossly normal Mental Status: mental status grossly normal Affect: normal affect Attitude: cooperative Thought process: Normal thought process present Thought content: Normal thought content present Insight: Good insight present (Psych) Course Course Course Narrative: This is an RME: Additional HPI, ROS, PE not included below will be deferred to primary provider. 38 yo m presents with chest pain X 3 days, worsening last few hours. Denies sob, nausea, vomiting, diarrhea. Reports radiation to left shoulder. Pt has been called multiple times,, no answer. Spoke to patient's emergency contact she will reach out to him to see if he will return to the emergency department. She states he left awhile ago. I did attempt to leave to voicemail on patient's phone for him to call back. Medical Decision Making Medical Decision Making MDM Narrative: Patient is a 38 year old assigned male at with no reported medical history presenting to the emergency department today with chest pain that radiates into his left arm. Patient's physical exam was unremarkable. Patient's blood work showed an initially elevated troponin of 64.6 and a repeat of 61.9. Patient's EKG nonspecific T wave abnormality. I spoke to the coding validator who recommended treating as an NSTEMI with IV Heparin, ASA, metoprolol, atorvastatin 80mg, and sublingual nitroglycerin. I spoke to the hospitalist team who agreed to admission. I explained my physical exam findings as well as all test results to the patient. I answered all questions asked by the patient. Patient verbalized agreement and understanding with this treatment plan and admission. Differential Diagnosis Differential Diagnoses: The differential diagnosis associated with the presentation includes NSTEMI STEMI ACS Chest pain Admission/Observation Consideration of admission/observation: Escalation of care including admission/observation considered Patient admitted. Consult Healthcare Provider Management of the patient was discussed with: Hospitalist (agreed to admission as noted in the MDM Rationale portion of this note.) and Metalworking Instructor (spoke to the coding validator as noted in the MDM Rationale portion of this note.) Lab Data [facility] Lab Attestation statement: I reviewed the patient's lab results. My interpretation of these results are in the MDM Rationale portion of this note. 11/30/23 14:40 11/30/23 14:40 Labs: Lab Results 11/30/23 11/30/23 Range/Units 14:40 19:33 WBC 5.2 (4.8-10.8) X10*3/uL RBC 4.85 (4.60-5.80) X10*6/uL Hgb 15.0 (14.0-18.0) g/dl Hct 42.5 (42.0-52.0) % MCV 87.6 (80.0-98.0) fL MCH 30.9 (27.0-33.0) pg MCHC 35.3 (31.0-36.0) g/dl RDW 13.0 (11.0-16.0) % Plt Count 292 (160-400) X10*3/uL MPV 8.8 L (9.4-12.4) fL Immature Gran % (Auto) 0.2 (0.0-0.4) % Neut % (Auto) 43.4 L (45-73) % Lymph % (Auto) 47.2 H (20-40) % [place] % (Auto) 6.1 (2-11) % Eos % (Auto) 2.3 (0-4) % Baso % (Auto) 0.8 (0-2) % Lymph # (Auto) 2.5 (1.2-4.9) X10*3/uL [place] # (Auto) 0.3 (0.1-1.2) X10*3/uL Eos # (Auto) 0.1 (0.0-0.4) X10*3/uL Baso # (Auto) 0.0 (0.0-0.2) X10*3/uL Abs Immat Gran (auto) 0.01 (0.00-0.03) X10*3/uL Absolute Neuts (auto) 2.3 (2.0-8.3) x10*3/uL Absolute Nucleated RBC 0.000 (0.0-0.012) X10*3/uL Nucleated RBC % (auto) 0.0 (0.0-0.2) /100WBC Sodium 139 (135-145) mmol/L Potassium 4.1 (3.3-5.1) mmol/L Chloride 106 (96-108) mmol/L Carbon Dioxide 25 (22-29) mmol/L Anion Gap 12 (12-20) BUN 7 L (9-16) mg/dL Creatinine 0.94 (0.5-1.4) mg/dL Estim Creat Clear Calc 124.3 Estimated GFR > 60 Random Glucose 102 (60-115) mg/dL Calcium 9.2 (8.4-10.2) mg/dL Magnesium 2.4 (1.6-2.6) mg/dL Total Bilirubin 0.4 (0.0-1.0) mg/dL AST 38 H (5-37) U/L ALT 77 H (0-40) U/L Alkaline Phosphatase 80 (39-117) U/L Troponin I High Sens 64.6 H 61.9 H (<3.5-35.0) ng/L Total Protein 7.8 (6.5-8.0) g/dL Albumin 4.4 (3.5-5.0) g/dL Independent Interpretation I performed an independent interpretation of an: EKG Interpretation: Vent. Rate: 057 BPM Atrial Rate: 057 BPM P-R Int: 148 ms QRS Dur: 090 ms QT Int: 418 ms P-R-T Axes: 002 -06 006 degrees QTc Int: 406 ms Sinus bradycardia Minimal voltage criteria for LVH, may be normal variant ( R in aVL ) Nonspecific T wave abnormality Abnormal ECG DD/ 1431 Critical Care Time Critical Care Time Critical Care Time: Yes Total Critical Care Time: 122 Attestation: I spent 122 minutes of Critical Care Time with this patient. This does not include time spent on separately reported billable procedures. Discharge Plan Discharge Clinical Impression: Chest pain, Acute non-ST elevation myocardial infarction (NSTEMI) Patient Disposition: Admitted As Inpatient Prescriptions: No Action doxycycline monohydrate 100 mg capsule 100 mg PO BID 10 Days Qty: 20 0RF cephalexin 500 mg capsule 500 mg PO Q12H 7 Days Qty: 14 0RF ibuprofen 800 mg tablet 800 mg PO Q8H PRN (Reason: pain) Qty: 14 0RF clindamycin HCl 300 mg capsule 300 mg PO Q6H 10 Days Qty: 40 0RF cephalexin 500 mg capsule 500 mg PO QID 14 Days Qty: 56 0RF doxycycline hyclate 100 mg tablet 100 mg PO BID 14 Days Qty: 28 0RF cyclobenzaprine 10 mg tablet 10 mg PO TID PRN (Reason: muscle pain or spasm) Qty: 20 0RF acetaminophen [Tylenol Extra Strength] 500 mg tablet 1,000 mg PO Q6H PRN (Reason: fever or pain) Qty: 20 0RF ibuprofen 400 mg tablet 400 mg PO TID PRN (Reason: fever or pain) Qty: 30 0RF Print Language: Lao
[2023-11-30 12:58] VITALS: BP 174/105; PULSE 77; RESP 18; TEMP 36.4; O2SAT 96; BMI 37.7
[2023-11-30 14:44] LABS: MANUAL DIFF FLAG NO
[2023-11-30 14:46] LABS: Basophils Percent Auto 0.8 % (0-2); Eosinophils Absolute Auto 0.1 X10*3/uL (0.0-0.4); Eosinophils Percent Auto 2.3 % (0-4); Hematocrit 42.5 % (42.0-52.0); Imm Gran Abs Auto 0.01 X10*3/uL (0.00-0.03); Imm Gran Pct Auto 0.2 % (0.0-0.4); Lymphocytes Absolute Auto 2.5 X10*3/uL (1.2-4.9); Lymphocytes Percent Auto 47.2 % (20-40); Mean Corpuscular HGB Conc 35.3 g/dl (31.0-36.0); Mean Corpuscular Hemoglobin 30.9 pg (27.0-33.0); Mean Corpuscular Volume 87.6 fL (80.0-98.0); Mean Platelet Volume 8.8 fL (9.4-12.4); Monocytes Absolute Auto 0.3 X10*3/uL (0.1-1.2); Monocytes Percent Auto 6.1 % (2-11); Neutrophils Absolute Auto 2.3 x10*3/uL (2.0-8.3); Neutrophils Percent Auto 43.4 % (45-73); Platelet Count 292 X10*3/uL (160-400); Red Blood Count 4.85 X10*6/uL (4.60-5.80); White Blood Count 5.2 X10*3/uL (4.8-10.8)
[2023-11-30 15:03] LABS: Alanine Aminotransferase 77 U/L (0-40); Albumin Level 4.4 g/dL (3.5-5.0); Alkaline Phosphatase 80 U/L (39-117); Anion Gap 12 (12-20); Aspartate Amino Transferase 38 U/L (5-37); Bilirubin Total 0.4 mg/dL (0.0-1.0); Blood Urea Nitrogen 7 mg/dL (9-16); Calcium 9.2 mg/dL (8.4-10.2); Carbon Dioxide 25 mmol/L (22-29); Chloride 106 mmol/L (96-108); Creatinine Clr Calc Pharmacy 124.3; Estimated Glomerular Filt Rate > 60; Glucose Random 102 mg/dL (60-115); Magnesium 2.4 mg/dL (1.6-2.6); Potassium 4.1 mmol/L (3.3-5.1); Sodium 139 mmol/L (135-145); Total Protein 7.8 g/dL (6.5-8.0)
[2023-11-30 15:11] LABS: Troponin-I High Sensitivity 64.6 ng/L (<3.5-35.0)
--- NOTE | 2023-11-30 19:28 | ECG_ITS ---
Test Reason : chest pain Blood Pressure : / mmHG Vent. Rate : 076 BPM Atrial Rate : 076 BPM P-R Int : 146 ms QRS Dur : 094 ms QT Int : 356 ms P-R-T Axes : -01 -10 054 degrees QTc Int : 400 ms Normal sinus rhythm Moderate voltage criteria for LVH, may be normal variant ( R in aVL , Victor product ) Nonspecific T wave abnormality Abnormal ECG When compared with ECG of 30-NOV-2023 14:31, Nonspecific ST and T wave abnormality more prominent Referred By: Que Mosqueda Electronically Signed By:ARABELLA PARDO
[2023-11-30 19:56] LABS: Troponin-I High Sensitivity 61.9 ng/L (<3.5-35.0)
--- NOTE | 2023-11-30 20:38 | PHA.MEDREC ---
Pharmacy Consult ? Medication Reconciliation Pharmacy has completed the medication reconciliation. Patient reports no medicaitons at home. Kristin Quintana, BrianD
[2023-11-30 20:54] LABS: Hematocrit 40.4 % (42.0-52.0); Hemoglobin 14.3 g/dl (14.0-18.0); Mean Corpuscular HGB Conc 35.4 g/dl (31.0-36.0); Mean Corpuscular Volume 87.4 fL (80.0-98.0); Mean Platelet Volume 8.9 fL (9.4-12.4); Platelet Count 283 X10*3/uL (160-400); Red Blood Count 4.62 X10*6/uL (4.60-5.80); Red Cell Distribution Width 13.1 % (11.0-16.0); White Blood Count 5.9 X10*3/uL (4.8-10.8)
--- NOTE | 2023-11-30 20:55 | P.HPHOSP_ITS ---
History of Present Illness Date of Service: 11/30/23 Chief Complaint: Chest pain This is a 38-year-old male with no pertinent past medical history and not on prescription medications who presents to the emergency department for evaluation of chest discomfort. Patient states he 1st had left-sided chest discomfort 2 days prior to presentation. This was when he was walking 4.5 miles in an attempt to lose weight. The pain has been constant over the last 2 days. No relieving factors. It is exacerbated with stress and walking. Patient had radiation to the left arm on the day of presentation. No sweating or nausea, vomiting. No family history of early heart attacks. Admits smoking tobacco every day. Also consumes alcohol but no history of alcohol withdrawals. No history of essential hypertension or diabetes. No fever, chills, palpitations, shortness of breath, abdominal pain, changes in urinary or bowel habits. In the emergency department, troponin was found to be elevated and patient was initiated on IV heparin Review of Systems 2 Constitutional: Constitutional: Reports no additional constitutional complaints Cardiovascular: Cardiovascular: Reports chest pain and Reports chest pain at rest Respiratory: Respiratory: Reports no additional respiratory complaints Gastrointestinal: Gastrointestinal: Reports no additional gastrointestinal complaints Genitourinary: Genitourinary: Reports no additional male genitourinary complaints [facility] Medical History No known health problems Pertinent family history: No family history of early CAD Social History Patient Tobacco Use Status: Current everyday Tobacco user Advance Directives: No Advance Directives Information Provided: Yes Do you have a plan to hurt others: No Plan Meds Allergies Allergy/AdvReac Type Severity Reaction Status Date / Time No Known Allergies Allergy Verified 11/30/23 12:59 Active Medications: Current Medications Acetaminophen (Acetaminophen 325 Mg Tablet) 650 mg PO Q6H PRN PRN Reason: Pain, Mild (Pain Scale 1-3) Aspirin (Aspirin 81 Mg Tab.Chew) 81 mg PO DAILY [place] Atorvastatin Calcium (Atorvastatin Calcium 40 Mg Tablet) 40 mg PO BEDTIME [place] Heparin Sodium (Porcine) (Heparin Sodium,Porcine 5,000 Unit/Ml Vial) 4,400 unit 40 unit/kg (4400 unit) IVPUSH PROTOCOL BOLUS PRN; Protocol PRN Reason: 40 unit/kg - Heparin Protocol Heparin Sodium (Porcine) (Heparin Sodium,Porcine 5,000 Unit/Ml Vial) 8,700 unit 80 unit/kg (8700 unit) IVPUSH PROTOCOL BOLUS PRN; Protocol PRN Reason: 80 unit/kg - Heparin Protocol Heparin Sodium/Sodium Chloride (Heparin Sodium,Porcine/1/2ns) 25,000 unit in 250 mls @ 0 mls/hr IVCONT .Q0M [place]; Protocol Melatonin (Melatonin 3 Mg Tablet) 6 mg PO BEDTIME PRN PRN Reason: Insomnia Metoprolol Tartrate (Metoprolol Tartrate 25 Mg Tablet) 25 mg PO BID [place]; Protocol Nitroglycerin (Nitroglycerin 0.4 Mg Tab.Subl) 0.4 mg SUBLINGUAL Q5MX3 PRN PRN Reason: Chest Pain Ondansetron HCl (Ondansetron Hcl 4 Mg/2 Ml Vial) 4 mg IVPUSH Q8H PRN PRN Reason: Nausea and Vomiting Sodium Chloride (0.9 % Sodium Chloride Flush 3 Ml Syringe) [facility] Medications ?Medication ?Instructions ?Recorded ?Confirmed ?Last Taken ?Type No Known Home Meds 11/30/23 11/30/23 Unknown History Physical Exam 2 Vital Signs and Narrative: Vital Signs: Last Vital Signs Temp 97.5 F 11/30/23 12:58 Pulse 77 11/30/23 12:58 Resp 18 11/30/23 12:58 BP 174/105 H 11/30/23 12:58 Pulse Ox 96 11/30/23 12:58 O2 Del Method Room Air 11/30/23 12:58 BMI result Body Mass Index 37.7 Middle-aged male lying in bed in no distress Neck supple, no JVD Regular rate and rhythm, S1-S2 heard Regular breath sounds bilaterally, no wheezing or crackles appreciated Abdomen soft nontender, no guarding, no rigidity Patient is awake, alert and oriented to self, place, time and person ; no focal motor deficit Psych: Normal mood No pedal edema Results Labs 11/30/23 20:45 11/30/23 14:40 Labs: Laboratory Results - last 24 hr 11/30/23 11/30/23 11/30/23 14:40 19:33 20:45 MCV 87.6 87.4 MCH 30.9 31.0 MCHC 35.3 35.4 RDW 13.0 13.1 Plt Count 292 283 MPV 8.8 L 8.9 L Immature Gran % (Auto) 0.2 Neut % (Auto) 43.4 L Lymph % (Auto) 47.2 H [place] % (Auto) 6.1 Eos % (Auto) 2.3 Baso % (Auto) 0.8 Lymph # (Auto) 2.5 [place] # (Auto) 0.3 Eos # (Auto) 0.1 Baso # (Auto) 0.0 Abs Immat Gran (auto) 0.01 Absolute Neuts (auto) 2.3 Absolute Nucleated RBC 0.000 0.000 Nucleated RBC % (auto) 0.0 0.0 Anion Gap 12 Estim Creat Clear Calc 124.3 Estimated GFR > 60 Random Glucose 102 Calcium 9.2 Magnesium 2.4 Total Bilirubin 0.4 AST 38 H ALT 77 H Alkaline Phosphatase 80 Troponin I High Sens 64.6 H 61.9 H Total Protein 7.8 Albumin 4.4 Assessment and Plan (1) Acute non-ST elevation myocardial infarction (NSTEMI): Status: Acute Plan This is a 38-year-old male with no pertinent past medical history and not on prescription medications who presents to the emergency department for evaluation of chest discomfort. #. NSTEMI: Will admit patient with cardiac monitoring. Initiated on IV heparin. Ordered aspirin, high-intensity statin and beta-greyson. Consulting Cardiology, appreciate assistance. Obtaining echo #. Tobacco use disorder: Counseled regarding cessation. Refused nicotine patch #. Alcohol use disorder. Monitor CIWA #. Elevated transaminases, mild: Outpatient follow-up DVT prophylaxis: IV heparin Full code Admit as inpatient and will require two night minimum hospital stay for IV heparin (as above), which is not possible in a lesser acute setting. Specialist consult pending Quality Stroke Does the patient have a stroke diagnosis?: No VTE Prior VTE?: No VTE Risk Level:: Medical - moderate - high VTE Device Contraindication: Treatment Not Indicated VTE Drug Contraindication: N/A - Med Ordered
[2023-11-30 21:02] LABS: INTERNATIONAL NORM RATIO 0.9 (0.9-1.1)
[2023-11-30] MEDS: Heparin Sodium,Porcine 5,000 UNIT/ML VIAL 4000 UNIT IVPUSH (21:08)
[2023-11-30] MEDS: Heparin Sodium,Porcine/1/2NS 25,000 UNIT/250 ML IV.SOLN 10 UNIT IVCONT (21:10)
--- NOTE | 2023-11-30 21:12 | PC.NURSE ---
Heparin drip infusing per MAR.
[2023-11-30 22:04] VITALS: BP 175/87; PULSE 65
[2023-11-30] MEDS: Aspirin 81 MG TAB.CHEW 324 MG PO (22:04)
[2023-11-30] MEDS: Metoprolol Succinate ER 50 MG TAB.ER.24H PO (22:04)
[2023-11-30 22:05] VITALS: BP 175/87; PULSE 65
[2023-11-30] MEDS: Nitroglycerin 0.4 MG TAB.SUBL SUBLINGUAL (22:05)
[2023-11-30] MEDS: Atorvastatin Calcium 80 MG TABLET PO (22:08)
[2023-12-01] VITALS (10 sets, daily range): BP systolic 142–176; BP diastolic 63–103; PULSE 51–60; RESP 14–18; TEMP 36.6–36.7; O2SAT 97–98
--- NOTE | 2023-12-01 00:20 | MHC.EDTECH ---
This tech took over care of patient at 2300,hourly rounds and vitals completed,belongings list completed and copy placed in chart,call luciano in reach
--- NOTE | 2023-12-01 03:26 | MHC.EDTECH ---
Hourly rounds and vitals completed,patient is resting at this time,call luciano in reach
[2023-12-01 03:57] LABS: PTT Heparin Drip 76.3 SEC (53-77.9)
[2023-12-01 05:25] LABS: MANUAL DIFF FLAG NO
[2023-12-01 05:26] LABS: Basophils Percent Auto 0.6 % (0-2); Eosinophils Absolute Auto 0.2 X10*3/uL (0.0-0.4); Hematocrit 40.1 % (42.0-52.0); Hemoglobin 14.2 g/dl (14.0-18.0); Imm Gran Abs Auto 0.01 X10*3/uL (0.00-0.03); Imm Gran Pct Auto 0.2 % (0.0-0.4); Lymphocytes Absolute Auto 3.6 X10*3/uL (1.2-4.9); Lymphocytes Percent Auto 57.1 % (20-40); Mean Corpuscular HGB Conc 35.4 g/dl (31.0-36.0); Mean Corpuscular Hemoglobin 31.3 pg (27.0-33.0); Mean Corpuscular Volume 88.5 fL (80.0-98.0); Mean Platelet Volume 8.8 fL (9.4-12.4); Monocytes Absolute Auto 0.4 X10*3/uL (0.1-1.2); Monocytes Percent Auto 5.5 % (2-11); Neutrophils Absolute Auto 2.2 x10*3/uL (2.0-8.3); Neutrophils Percent Auto 33.6 % (45-73); Platelet Count 278 X10*3/uL (160-400); Red Blood Count 4.53 X10*6/uL (4.60-5.80); Red Cell Distribution Width 13.2 % (11.0-16.0); White Blood Count 6.4 X10*3/uL (4.8-10.8)
--- NOTE | 2023-12-01 05:27 | MHC.EDTECH ---
Hourly rounds and vitals completed,BP elevated 173/103 RN aware. Patient is watching TV and is comfortable, at bedside
[2023-12-01 05:34] LABS: INTERNATIONAL NORM RATIO 0.9 (0.9-1.1)
[2023-12-01 05:40] LABS: Anion Gap 14 (12-20); Blood Urea Nitrogen 10 mg/dL (9-16); Calcium 9.1 mg/dL (8.4-10.2); Carbon Dioxide 22 mmol/L (22-29); Chloride 107 mmol/L (96-108); Creatinine Clr Calc Pharmacy 134.3; Estimated Glomerular Filt Rate > 60; Glucose Random 110 mg/dL (60-115); Potassium 3.9 mmol/L (3.3-5.1); Sodium 139 mmol/L (135-145)
[2023-12-01 05:48] LABS: Troponin-I High Sensitivity 65.2 ng/L (<3.5-35.0)
--- NOTE | 2023-12-01 05:53 | MHC.EDTECH ---
Patient ambulated to the bathroom with a steady gait
--- NOTE | 2023-12-01 06:05 | PC.NURSE ---
Pt 38 y male presented for chest tightness. Pt was in waiting room but left and called back by provider for elevated troponin. Pt came back and lab rechecked Odnwtird20.6 and 61.9. IV line placed #18 R-AC. Pt started on Heparin gtt running at 9.16unit/kg/hr or 10ml and bolus given. PTT-HD 76.3, no change, repeat due at 0915. Pt also given atorvastatin, asa 324mg, nitro 0.4 mg SL and metoprolol XL. Pt A & O X 4, Chest tightness improved after Nitro. HR SR and SB in 50's. independent at baseline. Pt reports he is a 3-4 beer (20oz) drinker about every other day. No history of alcohol withdrawal; last drink was Thursday. CIWA-0. Pt ambulate to BR independently BM today.
--- NOTE | 2023-12-01 06:13 | PC.NURSE ---
HR 45-55 and BP 170's/100's. Pt asymptomatic. notified. No new orders at this time. Plan of care on going.
--- NOTE | 2023-12-01 07:00 | CA_ITS ---
Transthoracic Echocardiogram Patient (Last, First, Middle): Lito Trujillo, Gender: Male Date of : 1985 Age: 38 Procedure Date: 12/01/2023 Procedure Type: Transthoracic Echocardiogram Location: ER Height: 170.18 cm Weight: 108.86 kg BSA: 2.18 m2 Heart Rate: bpm BP: 174 / 96 mmHg Leather Tanner: Referring MD: Catrachito Wilkinson MD Symptoms: NSTEMI Study Quality: Adequate/contrast ECG Rhythm: Sinus Conclusions: - The left ventricular systolic function is normal. The calculated ejection fraction is 60% by biplane method. - Cannot exclude hypokinesis in the basal inferior/ inferoseptal wall. - There is mildly increased left ventricular wall thickness. - No obvious valvular pathology seen on this study. Findings Procedure Information Contrast agent, definity, is being given per protocol without apparent complications. Left Ventricle Normal left ventricular cavity size. There is mildly increased left ventricular wall thickness. The left ventricular systolic function is normal. The calculated ejection fraction is 60% by biplane method. Diastolic function is normal for age. Cannot exclude hypokinesis in the basal inferior/ inferoseptal wall. Right Ventricle Normal right ventricular cavity size and systolic function. Atria The left atrium is mildly dilated. The right atrium is normal in size. Aortic Valve There is a normal trileaflet aortic valve. There is no aortic valve stenosis. There is no aortic valve regurgitation. Mitral Valve The mitral valve appears normal. There is no mitral valve regurgitation. There is no mitral valve stenosis. Pulmonic Valve The pulmonic valve is likely normal. Tricuspid Valve There is trace tricuspid valve regurgitation. There is no evidence of pulmonary hypertension. Great Vessels The asc aorta is normal in size. Venous The inferior vena cava is normal in size and collapses greater than 50% with inspiration. Pericardium/Pleural There is a trivial pericardial effusion. Prior Study Comparison No prior study available for comparison. Recommendations, Care & Conclusions No obvious valvular pathology seen on this study. Measurements 2D Linear Measurements IVSd: 1.28 0.6-0.9/0.6-1.0 cm LVIDd: 4.97 3.9-5.3/4.2-5.9 cm LVIDd Index: 2.28 2.4-3.2/2.2-3.1 cm/m2 LVIDs: 3.19 2.0-3.6 cm LVPWd: 1.23 0.7-1.1 cm Ao Root: 3.50 2.1-3.5 cm LA Diam: 4.70 2.7-3.8/3.0-4.0 cm LAIDs Index: 2.16 1.5-2.3 cm/m2 LV Mass: 307.58 67-162/88-224 g LV Mass Index: 141.09 43-95/49-115 g/m2 LVOT Diam: 2.40 3.0+(-)1.3 cm 2D Systolic Function EF 4C: 58.80 >55% EF 2C: 57.80 >55% EF BiP: 59.80 >55% Mitral Valve MV Pk E: 0.81 MV PK A: 0.41 MV Decel Time: 149.00 E/A: 2.00 E'Lateral: 12.00 E'Medial: 9.14 E/E' Med: 8.80 E/E' Lat: 6.70 PHT: 44.00 MVA PHT: 5.00 Decel [place]: 5.39 Aortic Valve AoV Pk Jermaine: 1.23 AoV Mn Jermaine: 0.77 AoV VTI: 0.28 AoV Pk Grad: 6.00 Aov Mn Grad: 3.00 JAIRON Cont.VTI: 3.39 LVOT LVOT Pk Jermaine: 0.89 LVOT Mn Jermaine: 0.61 LVOT VTI: 0.21 LVOT Pk Grad: 3.00 LVOT Mn Grad: 2.00 LVOT Diam: 2.40 LVOT Area: 4.52 Diastolic Function MV Pk E: 0.81 MV Pk A: 0.41 E/A: 2.00 E'Medial: 9.14 E/E' Med: 8.80 E' Laterial: 12.00 E/E' Lat: 6.70 Right Ventricle TAPSE (mm): 30.40 TVS' Jermaine: 11.20 Tricuspid Valve TR Pk Jermaine: 2.29 TR Pk Grad: 21.00 RA Press: 3.00 RVSP: 24.00 Great Vessels Aorta Ao Root-2D: 3.50 2.0-3.7 cm Ao Asc: 3.00 2.1-3.4 cm Pulmonary Valve PV Pk Jermaine: 0.90 Peak PV Grad: 3.00 Updated in Other Vendor System with Status of Final Froilan Menezes MD electronically signed on 12/01/2023 10:27:52 AM with status of Final
[2023-12-01] MEDS: Aspirin 81 MG TAB.CHEW PO (08:51)
[2023-12-01] MEDS: amLODIPine Besylate 5 MG TABLET PO (08:51)
--- NOTE | 2023-12-01 09:03 | PC.NURSE ---
ep technologist at bedside
--- NOTE | 2023-12-01 09:28 | PM.CNCAR ---
History of Present Illness History of Present Illness Date of Service: 12/01/23 Chief complaint: Chest pain Narrative: This is a cardiology consultation regarding chest pain. Patient denies any history of previous cardiovascular or in fact any major health issues. He is fairly active with no major limitations. He states that for the last 3 days or so, he has been having left-sided chest discomfort. He describes it as a pressure/squeezing in the left chest. It was also radiating down the left arm and all the way into the left hand. It is somewhat continuous pain. He came to the ER last night and EKG showed LVH but no clear ischemic findings otherwise. Troponins were slightly high. He was admitted as NSTEMI. He states he was having pain truly came to the ER but overnight, he has been okay. He is on IV heparin drip. Blood pressure seems high but he states he does not have a history of hypertension. He denies drug use. Smoker. Review of Systems Review of Systems: Yes all other systems are reviewed and are negative Constitutional: Constitutional: Reports as per HPI and Reports no additional constitutional complaints Eyes: Eyes: Reports as per HPI and Denies no additional eye complaints ENT: Denies system reviewed and no additional complaints, except as documented and Reports as per HPI Cardiovascular: Cardiovascular: Reports as per HPI, Reports no additional cardiovascular complaints, Denies acrocyanosis, Denies cool extremities, Reports chest pain, Denies leg edema, Denies lightheadedness, Denies palpitations and Denies dyspnea Respiratory: Respiratory: Reports as per HPI, Denies no additional respiratory complaints and Denies dyspnea Gastrointestinal: Gastrointestinal: Reports as per HPI and Denies no additional gastrointestinal complaints Genitourinary: Genitourinary: Reports no additional male genitourinary complaints and Reports as per HPI Musculoskeletal: Musculoskeletal: Reports no additional musculoskeletal complaints and Reports as per HPI Integumentary/Breasts: Skin/Breast: Reports system reviewed and no additional complaints, except as docu Neurologic: Reports system reviewed and no additional complaints, except as documented and Reports as per HPI Psychiatric: Psychiatric: Reports no additional psychiatric complaints and Reports as per HPI Endocrine: Endocrine: Reports no additional endocrine complaints, Reports as per HPI and Denies palpitations Hematologic/Lymphatic: Hematologic/Lymphatic: Reports no additional hematologic/lymphatic complaints and Reports as per HPI Allergic/Immunologic: Allergic/Immunologic: Reports no additional allergic/immunologic complaints and Reports as per HPI PMFSH Past Medical History Medical History No known health problems Family History Family History (Updated 12/01/23 @ 09:30 by Froilan Menezes MD) Mother Diabetes Social History Social History Alcohol intake: current Alcohol intake frequency: a few times a week Alcohol type: beer Patient Tobacco Use Status: Current everyday Tobacco user Smoked in Last 30 Days: Yes Use of substances other than those prescribed or required for medical reasons: No Advance Directives: No Advance Directives Information Provided: Yes Do you have a plan to hurt others: No Plan Nutrition Risks: No Nutritional Risk Meds Allergies Allergy/AdvReac Type Severity Reaction Status Date / Time No Known Allergies Allergy Verified 11/30/23 12:59 Active Medications: Current Medications Acetaminophen (Acetaminophen 325 Mg Tablet) 650 mg PO Q6H PRN PRN Reason: Pain, Mild (Pain Scale 1-3) Amlodipine Besylate (Amlodipine Besylate 5 Mg Tablet) 5 mg PO DAILY [facility]; Protocol Last Admin: 12/01/23 08:51 Dose: 5 mg Aspirin (Aspirin 81 Mg Tab.Chew) 81 mg PO DAILY [place] Last Admin: 12/01/23 08:51 Dose: 81 mg Atorvastatin Calcium (Atorvastatin Calcium 40 Mg Tablet) 40 mg PO BEDTIME [facility] Heparin Sodium (Porcine) (Heparin Sodium,Porcine 5,000 Unit/Ml Vial) 4,400 unit 40 unit/kg (4400 unit) IVPUSH PROTOCOL BOLUS PRN; Protocol PRN Reason: 40 unit/kg - Heparin Protocol Heparin Sodium (Porcine) (Heparin Sodium,Porcine 5,000 Unit/Ml Vial) 8,700 unit 80 unit/kg (8700 unit) IVPUSH PROTOCOL BOLUS PRN; Protocol PRN Reason: 80 unit/kg - Heparin Protocol Heparin Sodium/Sodium Chloride (Heparin Sodium,Porcine/1/2ns) 25,000 unit in 250 mls @ 0 mls/hr IVCONT .Q0M [facility]; Protocol Last Admin: 11/30/23 21:10 Dose: 9.16 units/kg/hr, 10 mls/hr Melatonin (Melatonin 3 Mg Tablet) 6 mg PO BEDTIME PRN PRN Reason: Insomnia Metoprolol Tartrate (Metoprolol Tartrate 25 Mg Tablet) 25 mg PO BID [facility]; Protocol Last Admin: 12/01/23 09:02 Dose: Not Given Nitroglycerin (Nitroglycerin 0.4 Mg Tab.Subl) 0.4 mg SUBLINGUAL Q5MX3 PRN PRN Reason: Chest Pain Ondansetron HCl (Ondansetron Hcl 4 Mg/2 Ml Vial) 4 mg IVPUSH Q8H PRN PRN Reason: Nausea and Vomiting Sodium Chloride (0.9 % Sodium Chloride Flush 3 Ml Syringe) 3 ml IVFLUSH QSHIFT [facility] Last Admin: 12/01/23 08:09 Dose: Not Given Home Medications ?Medication ?Instructions ?Recorded ?Confirmed ?Last Taken ?Type No Known Home Meds 11/30/23 11/30/23 Unknown History Physical Exam Vital Signs: Vital Signs: Last Vital Signs Temp 98.0 F 12/01/23 06:43 Pulse 52 12/01/23 09:02 Resp 14 12/01/23 08:49 BP 145/71 H 12/01/23 08:51 Pulse Ox 98 12/01/23 08:49 O2 Del Method Room Air 12/01/23 08:49 BMI result Body Mass Index 37.7 Const: General: comfortable and no acute distress Orientation/consciousness: patient oriented x3 HEENT: Other: Unremarkable Head: Yes normal to inspection Neck: Neck: Yes normal visual inspection Chest: Chest palpation & inspection: normal inspection of the chest Resp: Auscultation: clear to auscultation bilaterally Cardio: Palpation: normal PMI Heart sounds: S1 normal heart sound present, S2 normal heart sound present, no gallops, no murmurs and no rubs GI: Palpation (GI): Soft to palpation Back/Spine/Pelvis: Other: unremarkable Skin: General skin exam: no rashes or lesions noted Neuro: General: patient oriented x3 Extrem: General: Yes normal to inspection Psych: Mental Status: mental status grossly normal Objective Labs and Meds 12/01/23 05:16 12/01/23 05:16 Lab results: Laboratory Results - last 24 hr 11/30/23 11/30/23 11/30/23 14:40 19:33 20:45 WBC 5.2 5.9 RBC 4.85 4.62 Hgb 15.0 14.3 Hct 42.5 40.4 L MCV 87.6 87.4 MCH 30.9 31.0 MCHC 35.3 35.4 RDW 13.0 13.1 Plt Count 292 283 MPV 8.8 L 8.9 L Immature Gran % (Auto) 0.2 Neut % (Auto) 43.4 L Lymph % (Auto) 47.2 H [place] % (Auto) 6.1 Eos % (Auto) 2.3 Baso % (Auto) 0.8 Lymph # (Auto) 2.5 [place] # (Auto) 0.3 Eos # (Auto) 0.1 Baso # (Auto) 0.0 Abs Immat Gran (auto) 0.01 Absolute Neuts (auto) 2.3 Absolute Nucleated RBC 0.000 0.000 Nucleated RBC % (auto) 0.0 0.0 Hold Purple Top PT 11.0 L INR APTT aPTT Heparin Protocol Sodium 139 Potassium 4.1 Chloride 106 Carbon Dioxide 25 Anion Gap 12 BUN 7 L Creatinine 0.94 Estim Creat Clear Calc 124.3 Estimated GFR > 60 Random Glucose 102 Calcium 9.2 Magnesium 2.4 Total Bilirubin 0.4 AST 38 H ALT 77 H Alkaline Phosphatase 80 Troponin I High Sens 64.6 H 61.9 H Total Protein 7.8 Albumin 4.4 11/30/23 11/30/23 12/01/23 20:45 20:45 03:42 WBC RBC Hgb Hct MCV MCH MCHC RDW Plt Count MPV Immature Gran % (Auto) Neut % (Auto) Lymph % (Auto) [place] % (Auto) Eos % (Auto) Baso % (Auto) Lymph # (Auto) [place] # (Auto) Eos # (Auto) Baso # (Auto) Abs Immat Gran (auto) Absolute Neuts (auto) Absolute Nucleated RBC Nucleated RBC % (auto) Hold Purple Top PT Cancelled INR 0.9 Cancelled APTT 36.0 aPTT Heparin Protocol Cancelled 76.3 Sodium Potassium Chloride Carbon Dioxide Anion Gap BUN Creatinine Estim Creat Clear Calc Estimated GFR Random Glucose Calcium Magnesium Total Bilirubin AST ALT Alkaline Phosphatase Troponin I High Sens Total Protein Albumin 12/01/23 05:16 WBC 6.4 RBC 4.53 L Hgb 14.2 Hct 40.1 L MCV 88.5 MCH 31.3 MCHC 35.4 RDW 13.2 Plt Count 278 MPV 8.8 L Immature Gran % (Auto) 0.2 Neut % (Auto) 33.6 L Lymph % (Auto) 57.1 H [place] % (Auto) 5.5 Eos % (Auto) 3.0 Baso % (Auto) 0.6 Lymph # (Auto) 3.6 [place] # (Auto) 0.4 Eos # (Auto) 0.2 Baso # (Auto) 0.0 Abs Immat Gran (auto) 0.01 Absolute Neuts (auto) 2.2 Absolute Nucleated RBC 0.000 Nucleated RBC % (auto) 0.0 Hold Purple Top SEE NOTE PT 11.0 L INR 0.9 APTT aPTT Heparin Protocol Sodium 139 Potassium 3.9 Chloride 107 Carbon Dioxide 22 Anion Gap 14 BUN 10 Creatinine 0.87 Estim Creat Clear Calc 134.3 Estimated GFR > 60 Random Glucose 110 Calcium 9.1 Magnesium Total Bilirubin AST ALT Alkaline Phosphatase Troponin I High Sens 65.2 H Total Protein Albumin ECG Interpretation: EKG with sinus bradycardia 57/Min; left ventricle hypertrophy. In the 2nd EKG, nonspecific ST-T changes. Assessment and Plan (1) Acute non-ST elevation myocardial infarction (NSTEMI): Status: Acute (2) Chest pain: Status: Acute Plan Symptoms of chest pain radiating down left arm/3 days. Labs show slightly elevated troponins at 64, 62 and 65. EKG with LVH/nonspecific changes. Echo pending. No history of hypertension but blood pressure is elevated and also EKG shows LVH. Hence suspect chronic hypertension but not treated. Plan will be IV heparin drip, aspirin, beta-blockers, amlodipine, statins. Transferred to [facility] for cardiac catheterization. Patient agrees. Procedures Date of Service Date of Service: 12/01/23
[2023-12-01 09:56] LABS: PTT Heparin Drip 66.6 SEC (53-77.9)
--- NOTE | 2023-12-01 09:58 | PM.DS ---
DS: Providers Provider Date of Service: 12/01/23 Date of admission: 11/30/23 20:28 Date of discharge: 12/01/23 Primary care physician: Galina Maynard MD Consults: 11/30/23 20:30 Consult to Cardiology Routine Consulting Provider: [facility] Reason for consultation: NSTEMI Has provider been notified: Yes Attending physician on discharge: Marisa Stout Discharging clinician: Marisa Stout DS: Diagnosis Discharge Diagnosis (1) Acute non-ST elevation myocardial infarction (NSTEMI): Status: Acute (2) Chest pain: Status: Acute DS: Summary Hospital Course Hospital Course: 38-year-old male with no pertinent past medical history and not on prescription medications who presents to the emergency department for evaluation of chest discomfort. Patient states he 1st had left-sided chest discomfort 2 days prior to presentation. This was when he was walking 4.5 miles in an attempt to lose weight. The pain has been constant over the last 2 days. No relieving factors. It is exacerbated with stress and walking. Patient had radiation to the left arm on the day of presentation. No sweating or nausea, vomiting. No family history of early heart attacks. Admits smoking tobacco every day. Also consumes alcohol but no history of alcohol withdrawals. No history of essential hypertension or diabetes. No fever, chills, palpitations, shortness of breath, abdominal pain, changes in urinary or bowel habits. In the emergency department, troponin was found to be elevated and patient was initiated on IV heparin. Hospital course: patient came to ed c/o chect pain ,folund to have mild elevated troponins -Symptoms of chest pain radiating down left arm/3 days,Labs show slightly elevated troponins at 64, 62 and 65.Patient has no hx of HTN ,EKG with LVH/nonspecific changes,Hence suspect chronic hypertension but not treated,so also added amlodipine for Bp. Patient started on IV heparin drip, aspirin, beta-blockers, amlodipine, statins for possible nstemi and seen by cardiology-recomended to continue current managment , Echo pending.patient will be tranferred to [facility] for cardiac catheterization. Tobacco use disorder: Counseled regarding cessation. Refused nicotine patch Alcohol use disorder. Monitor CIWA Elevated transaminases, mild: moniter closely. above management d/w patient in detail length -he uncderstands and in agreement with above plan, time spent 45 min. Time Attestation Total time managing care of this patient today: 45 mintues. Discharge Coordination Time (in mins): 45 min Quality: Safe Use of Opioids Does Pt have an Active Cancer Diagnosis on the Problem List?: No Quality: Stroke Does the patient have a stroke diagnosis?: No Physical Exam Vital Signs: Vital Signs: Last Vital Signs Temp 98.0 F 12/01/23 06:43 Pulse 52 12/01/23 09:02 Resp 14 12/01/23 08:49 BP 145/71 H 12/01/23 08:51 Pulse Ox 98 12/01/23 08:49 O2 Del Method Room Air 12/01/23 08:49 BMI result Body Mass Index 37.7 Appearance: Alert.? Oriented X3.? Eyes: Pupils equal, round and reactive to light.? Sclera nonicteric.? ENT: Pharynx normal.? Moist mucous membranes. cvs: rrr, [id number] . res: clear to auscultation ,no rhonchii or wheezing abd: no rebound or guarding ,nt, bs present. ext pulses present , no cyanosis . neuro: axo3 , nonfocal. DS: Data Data Completed and Pending Labs on day of discharge: Laboratory Results - last 24 hr 11/30/23 11/30/23 11/30/23 14:40 19:33 20:45 WBC 5.2 5.9 RBC 4.85 4.62 Hgb 15.0 14.3 Hct 42.5 40.4 L MCV 87.6 87.4 MCH 30.9 31.0 MCHC 35.3 35.4 RDW 13.0 13.1 Plt Count 292 283 MPV 8.8 L 8.9 L Immature Gran % (Auto) 0.2 Neut % (Auto) 43.4 L Lymph % (Auto) 47.2 H [place] % (Auto) 6.1 Eos % (Auto) 2.3 Baso % (Auto) 0.8 Lymph # (Auto) 2.5 [place] # (Auto) 0.3 Eos # (Auto) 0.1 Baso # (Auto) 0.0 Abs Immat Gran (auto) 0.01 Absolute Neuts (auto) 2.3 Absolute Nucleated RBC 0.000 0.000 Nucleated RBC % (auto) 0.0 0.0 Hold Purple Top PT 11.0 L INR APTT aPTT Heparin Protocol Sodium 139 Potassium 4.1 Chloride 106 Carbon Dioxide 25 Anion Gap 12 BUN 7 L Creatinine 0.94 Estim Creat Clear Calc 124.3 Estimated GFR > 60 Random Glucose 102 Calcium 9.2 Magnesium 2.4 Total Bilirubin 0.4 AST 38 H ALT 77 H Alkaline Phosphatase 80 Troponin I High Sens 64.6 H 61.9 H Total Protein 7.8 Albumin 4.4 11/30/23 11/30/23 12/01/23 20:45 20:45 03:42 WBC RBC Hgb Hct MCV MCH MCHC RDW Plt Count MPV Immature Gran % (Auto) Neut % (Auto) Lymph % (Auto) [place] % (Auto) Eos % (Auto) Baso % (Auto) Lymph # (Auto) [place] # (Auto) Eos # (Auto) Baso # (Auto) Abs Immat Gran (auto) Absolute Neuts (auto) Absolute Nucleated RBC Nucleated RBC % (auto) Hold Purple Top PT Cancelled INR 0.9 Cancelled APTT 36.0 aPTT Heparin Protocol Cancelled 76.3 Sodium Potassium Chloride Carbon Dioxide Anion Gap BUN Creatinine Estim Creat Clear Calc Estimated GFR Random Glucose Calcium Magnesium Total Bilirubin AST ALT Alkaline Phosphatase Troponin I High Sens Total Protein Albumin 12/01/23 12/01/23 05:16 09:24 WBC 6.4 RBC 4.53 L Hgb 14.2 Hct 40.1 L MCV 88.5 MCH 31.3 MCHC 35.4 RDW 13.2 Plt Count 278 MPV 8.8 L Immature Gran % (Auto) 0.2 Neut % (Auto) 33.6 L Lymph % (Auto) 57.1 H [place] % (Auto) 5.5 Eos % (Auto) 3.0 Baso % (Auto) 0.6 Lymph # (Auto) 3.6 [place] # (Auto) 0.4 Eos # (Auto) 0.2 Baso # (Auto) 0.0 Abs Immat Gran (auto) 0.01 Absolute Neuts (auto) 2.2 Absolute Nucleated RBC 0.000 Nucleated RBC % (auto) 0.0 Hold Purple Top SEE NOTE PT 11.0 L INR 0.9 APTT aPTT Heparin Protocol 66.6 Sodium 139 Potassium 3.9 Chloride 107 Carbon Dioxide 22 Anion Gap 14 BUN 10 Creatinine 0.87 Estim Creat Clear Calc 134.3 Estimated GFR > 60 Random Glucose 110 Calcium 9.1 Magnesium Total Bilirubin AST ALT Alkaline Phosphatase Troponin I High Sens 65.2 H Total Protein Albumin Discharge Plan Discharge Anticipated Discharge Date/Time: 12/01/23 09:54 Patient Disposition: Xfer Acute Care Hospital Discharge Diagnosis: Nsremi Referrals: Galina Denny MD [Primary Care Provider] - 1 Week Discharge Medications: New heparin(porcine) in 0.45% NaCl 25,000 unit/250 mL Parenteral Solution 25,000 unit continuous IV infusion .Q0M Qty: 1 0RF aspirin 81 mg Tablet,Chewable 81 mg PO DAILY Qty: 1 0RF atorvastatin 40 mg Tablet 40 mg PO BEDTIME Qty: 1 0RF metoprolol tartrate 25 mg Tablet 25 mg PO BID Qty: 1 0RF Protocol: Hold for SBP/HR < HOLD for SBP < : 90 HOLD for HR < : 60 nitroglycerin [Nitrostat] 0.4 mg Tablet, Sublingual 0.4 mg sublingual Q5MX3 PRN (Reason: Chest Pain) Qty: 1 0RF amlodipine 5 mg Tablet 5 mg PO DAILY Qty: 1 0RF Protocol: Hold for SBP< HOLD for SBP < : 90 No Action No Known Home Meds Discharge Orders: Discharge Order (Routine); Ordered 12/01/23 Ordered By: Marisa Stout Diet: Advance to usual diet Activity on Discharge: As tolerated Stand Alone Forms: Patient Portal Discharge page Print Language: Guatemalan Care Plan Goals: nstemi - started on iv heparin , statin,asa, bb, also added amlodipine for Bp- patient will go to [facility] for cardiac cath. Health Concerns: as above. Plan of Treatment: as above. Assessment: as above.
--- NOTE | 2023-12-01 12:18 | MHC.EDTECH ---
@12:15 PM CALL RECEIVED FROM SARAVANAN OF THE [facility] PT TX LINE WITH ROOM ASSIGNMENT [employer] 5 ROOM 22 RN TO RN [phone] MANZANARES
== END 2023-12-01 16:24 | disposition short-term general hospital (02) | DRG 282 ==
LOC: HO.ED 20:28 → HO.EDOVER 20:32
PROVIDERS: Physician Assistant; Physician Assistant Medical; Admitting Provider Student in an Organized Health Care Education/Training Program; Emergency Provider Emergency Medicine; PCP Student in an Organized Health Care Education/Training Program; Visit Provider Internal Medicine
DX: I21.4 Non-ST elevation (NSTEMI) myocardial infarction (principal); I10 Essential (primary) hypertension; F17.210 Nicotine dependence, cigarettes, uncomplicated; Z71.6 Tobacco abuse counseling; E66.9 Obesity, unspecified; Z68.37 Body mass index [BMI] 37.0-37.9, adult; Z71.3 Dietary counseling and surveillance; F10.90 Alcohol use, unspecified, uncomplicated
CPT/HCPCS: 36415; 80048; 80053; 83735; 84484; 85025; 85027; 85610; 85730; 93005; 93306; 99285; J1644; Q9957

== ENCOUNTER 2023-11-30 20:28 | Outpatient (BNV) | payer MEDICARE, MEDICAID, SELFPAY | END 2023-12-01 07:00 | PROVIDERS: Admitting Provider Student in an Organized Health Care Education/Training Program; Emergency Provider Emergency Medicine; PCP Student in an Organized Health Care Education/Training Program; Visit Provider Internal Medicine | DX: I21.4 Non-ST elevation (NSTEMI) myocardial infarction (principal); I36.1 Nonrheumatic tricuspid (valve) insufficiency | CPT/HCPCS: 93306 ==

== ENCOUNTER → 2023-11-30 20:28 | Outpatient (BNV) | payer MEDICARE, MEDICAID, SELFPAY | PROVIDERS: Admitting Provider Student in an Organized Health Care Education/Training Program; Emergency Provider Emergency Medicine; PCP Student in an Organized Health Care Education/Training Program; Visit Provider Internal Medicine | DX: I21.4 Non-ST elevation (NSTEMI) myocardial infarction (principal); R07.9 Chest pain, unspecified; R94.31 Abnormal electrocardiogram [ECG] [EKG]; R00.1 Bradycardia, unspecified | CPT/HCPCS: 93010; 99222 ==

== ENCOUNTER → 2023-11-30 20:28 | Outpatient (BNV) | payer MEDICARE, MEDICAID, SELFPAY | PROVIDERS: Admitting Provider Student in an Organized Health Care Education/Training Program; Emergency Provider Emergency Medicine; PCP Student in an Organized Health Care Education/Training Program; Visit Provider Student in an Organized Health Care Education/Training Program | DX: I21.4 Non-ST elevation (NSTEMI) myocardial infarction (principal); R07.9 Chest pain, unspecified | CPT/HCPCS: 99222; 99239 ==

== ENCOUNTER 2024-03-15 08:36 | Outpatient (REF) | payer MEDICARE, MEDICAID, SELFPAY ==
[2024-03-15 11:59] LABS: Hematocrit 42.3 % (42.0-52.0); Hemoglobin 14.7 g/dl (14.0-18.0); Mean Corpuscular HGB Conc 34.8 g/dl (31.0-36.0); Mean Corpuscular Hemoglobin 31.8 pg (27.0-33.0); Mean Corpuscular Volume 91.6 fL (80.0-98.0); Mean Platelet Volume 9.2 fL (9.4-12.4); Platelet Count 306 X10*3/uL (160-400); Red Blood Count 4.62 X10*6/uL (4.60-5.80); Red Cell Distribution Width 13.5 % (11.0-16.0); White Blood Count 6.1 X10*3/uL (4.8-10.8)
[2024-03-15 12:21] LABS: Estimated Average Glucose 108 mg/dL; Hemoglobin A1c % 5.4 % (<6.0)
[2024-03-15 12:31] LABS: Syphilis Screen Nonreactive (Nonreactive)
[2024-03-15 12:45] LABS: Alanine Aminotransferase 59 U/L (0-40); Albumin Level 4.1 g/dL (3.5-5.0); Alkaline Phosphatase 71 U/L (39-117); Anion Gap 10 (12-20); Aspartate Amino Transferase 32 U/L (5-37); Bilirubin Total 0.5 mg/dL (0.0-1.0); Blood Urea Nitrogen 9 mg/dL (9-16); Calcium 8.9 mg/dL (8.4-10.2); Carbon Dioxide 27 mmol/L (22-29); Chloride 106 mmol/L (96-108); Cholesterol 203 mg/dL (<200); Estimated Glomerular Filt Rate > 60; Glucose Random 93 mg/dL (60-115); HDL Cholesterol 47 mg/dL (>40); LDL Cholesterol Calculated 132 mg/dL (<100); Potassium 4.1 mmol/L (3.3-5.1); Sodium 139 mmol/L (135-145); TSH reflex Free T4 2.33 uIU/mL (0.32-4.0); Total Protein 7.3 g/dL (6.5-8.0); Triglycerides 120 mg/dL (<150)
[2024-03-16 08:08] LABS: HBS Num1 68.56 mIU/mL (0-7.99); HBc Num1 0.12 S/CO (0.00-0.79); HIV AB/AG Nonreactive (Nonreactive); HIV Num 1 0.05 S/CO (0.00-0.99); Hepatitis B Core Antibody Nonreactive (Nonreactive); ~HepC Num1 0.18 S/CO (0.00-0.79); ~Hepatitis B Surface Antibody REACTIVE (Nonreactive); ~Hepatitis C Antibody Nonreactive (Nonreactive)
== END 2024-03-15 08:37 | disposition home or self-care (01) ==
LOC: HO.HHCL 08:36
PROVIDERS: Visit Provider Student in an Organized Health Care Education/Training Program
DX: Z00.00 Encounter for general adult medical examination without abnormal findings (principal); Z13.1 Encounter for screening for diabetes mellitus
CPT/HCPCS: 36415; 80053; 80061; 83036; 84443; 85027; 86704; 86706; 86780; 86803; 87389

== ENCOUNTER 2024-05-11 11:02 | Outpatient (AMB) | payer MEDICARE, MEDICAID, SELFPAY ==
[2024-05-11 11:16] VITALS: BP 140/76; PULSE 65; BMI 37.1
--- NOTE | 2024-05-11 11:16 | A.OFFVIS_ITS ---
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 Earlier this year, he was seen in consultation in the hospital. He presented with chest pain radiating down the left arm. Troponins were slightly abnormal and he was admitted as NSTEMI. Blood pressure is also quite high. Subsequently, transferred to [facility] where he underwent a coronary CTA. No significant CAD. Hence suspect it is all from poorly controlled hypertension. Now he is on beta-blockers and amlodipine. He states he feels fine. No cardiac symptoms whatsoever. [facility] Medical History (Updated 05/11/24 @ 11:36 by Froilan Menezes MD) Primary hypertension No known health problems Family History Mother Diabetes Father Diabetes Kidney failure Social History Alcohol intake: current Alcohol intake frequency: a few times a week Alcohol type: beer Patient Tobacco Use Status: Current everyday Tobacco user Review of Systems Const Denies chills, Denies daytime sleepiness, Denies fatigue, Denies fever(s), Denies poor appetite, Denies snoring, Denies stops breathing during sleep, Denies weakness, Denies weight gain and Denies weight loss Eyes Denies loss of vision ENT Denies dizziness and Denies hearing loss Card Denies chest pain, Denies irregular heart rhythm, Denies claudication, Denies leg edema, Denies lightheadedness, Denies palpitations, Denies dyspnea on exertion and Denies orthopnea Resp Denies cough, Denies excessive phlegm production, Denies dyspnea on exertion, Denies snoring and Denies wheezing GI Denies abdominal pain, Denies hematochezia, Denies change in bowel habits, Denies nausea and Denies vomiting Denies dysuria and Denies urinary frequency Musc Denies arthralgias, Denies muscle weakness, Denies numbness and Denies other Skin/Breast Denies nail changes and Denies rash Neuro Denies Abnormal speech present, Denies dizziness, Denies loss of vision, Denies memory loss, Denies numbness and Denies weakness Psych Denies depression and Denies memory loss Endo Denies fatigue and Denies palpitations Ryan/Lymph Denies easy bruising Aller/Immun Denies wheezing Physical Exam Vital Signs: Last Vital Signs Pulse 65 05/11/24 11:16 BP 140/76 H 05/11/24 11:16 BMI result Body Mass Index 37.1 Const General: comfortable and no acute distress Orientation/consciousness: patient oriented x3 HEENT Other: Unremarkable Head: Yes normal to inspection Neck Neck: Yes normal visual inspection Chest Chest palpation & inspection: normal inspection of the chest Resp Auscultation: clear to auscultation bilaterally Cardio Palpation: normal PMI Heart sounds: S1 normal heart sound present, S2 normal heart sound present, no gallops, no murmurs and no rubs GI Palpation (GI): Soft to palpation Back/Spine/Pelvis Other: unremarkable Skin General skin exam: no rashes or lesions noted Neuro General: patient oriented x3 Speech: No Abnormal speech present Extrem General: Yes normal to inspection Psych Mental Status: mental status grossly normal Assessment & Plan Assessment & Plan (1) Primary hypertension: Code(s): I10 - Essential (primary) hypertension Category: Medical (2) Acute non-ST elevation myocardial infarction (NSTEMI): Code(s): I21.4 - Non-ST elevation (NSTEMI) myocardial infarction Category: Medical Plan Suspected demand related NSTEMI due to hypertension. Troponin levels were 64, 62 and 65. Echocardiogram with LVEF of 60% and possible hypokinesis in the basal inferior/inferoseptal wall. Mild left ventricular hypertrophy. Coronary CTA with no significant disease. Mild stenosis in the 2nd diagonal. Overall, mainly blood pressure management. He is on beta-blockers and amlodipine. Blood pressure is borderline high. May need further adjustments in the future. Weight loss as much able. With regard to statins, ideally should be on it but he states he cannot afford them as they are too expensive. Not clear. Will need to check with pharmacy. Coding Level of Care Code Est Pt Level 4 (40422) Diagnoses Primary hypertension I10 Acute non-ST elevation myocardial infarction (NSTEMI) I21.4
== END 2024-05-11 11:36 | disposition home or self-care (01) ==
PROVIDERS: PCP Student in an Organized Health Care Education/Training Program; Visit Provider Internal Medicine
DX: I10 Essential (primary) hypertension (principal); I21.4 Non-ST elevation (NSTEMI) myocardial infarction
CPT/HCPCS: 99214

== ENCOUNTER → 2024-05-11 11:02 | Outpatient (BNVA) | payer MEDICARE, MEDICAID, SELFPAY | PROVIDERS: PCP Student in an Organized Health Care Education/Training Program; Visit Provider Internal Medicine ==

== ENCOUNTER 2024-05-11 11:35 | Emergency (ER) | payer MEDICARE, MEDICAID, SELFPAY ==
--- NOTE | ~2024-05-11 | XR_ITS ---
EXAMINATION: XR HAND/WRIST, RIGHT CLINICAL INFORMATION: Right thumb pain COMPARISON: None available. TECHNIQUE: PA, lateral, and oblique views of the right hand and wrist. FINDINGS: No fracture, dislocation or destructive process. Joint spaces preserved. No erosive change. Scaphoid appears intact. XR/XR hand wrist RT IMPRESSION: Negative Electronically signed by: Lopez Tyler MD 05/11/2024 01:51 PM EDT
[2024-05-11 12:15] VITALS: BP 157/72; PULSE 73; RESP 16; TEMP 37; O2SAT 97; BMI 38.2
--- NOTE | 2024-05-11 12:20 | ED_ITS ---
HPI - Extremity Problem General Chief complaint: Extremity Injury, Upper Stated complaint: r hand inj Time Seen by Provider: 05/11/24 13:17 Source: patient, RN notes reviewed and old records reviewed Mode of arrival: ambulatory History of Present Illness ED Provider: Liz Cabezas PA-C HPI Narrative: 39-year-old male with past medical history HTN, NSTEMI, presenting to the ED complaining of right thumb pain s/p hyperextension injury on Thursday while playing football. Reports pain with ROM. Denies numbness, tingling, weakness, injury to other area. Related Data Previous Rx's ?Medication ?Instructions ?Recorded amlodipine 5 mg tablet 5 mg PO DAILY #1 tab 12/01/23 metoprolol tartrate 25 mg tablet 25 mg PO BID #1 tab 12/01/23 nitroglycerin 0.4 mg sublingual 0.4 mg sublingual Q5MX3 PRN Chest 12/01/23 tablet (Nitrostat) Pain #1 tab Allergies Allergy/AdvReac Type Severity Reaction Status Date / Time No Known Allergies Allergy Verified 05/11/24 12:18 Review of Systems Review of Systems: Yes all other systems are reviewed and are negative Constitutional: Constitutional: Reports as per HPI [facility] Past Medical History Attestation statement: The following information was validated with the patient. Source: old records reviewed Medical History Primary hypertension No known health problems Family History Family History Mother Diabetes Father Diabetes Kidney failure Social History Social History Alcohol intake: current Alcohol intake frequency: a few times a week Alcohol type: beer Patient Tobacco Use Status: Current everyday Tobacco user Advance Directives: No Advance Directives Information Provided: No Physical Exam Vital Signs: Vital Signs: Last Vital Signs Temp 98.6 F 05/11/24 14:04 Pulse 73 05/11/24 14:04 Resp 16 05/11/24 14:04 BP 157/72 H 05/11/24 14:04 Pulse Ox 97 05/11/24 14:04 O2 Del Method Room Air 05/11/24 14:04 BMI result Body Mass Index 38.2 Const: General: cooperative, healthy appearing and no acute distress Orientation/consciousness: patient oriented x3 Limitations: no limitations HEENT: Head: Yes normal to inspection and Yes atraumatic Ears: hearing grossly normal bilaterally General nose exam: Normal external nose present Face and sinus: Yes normal facial exam Eyes: General: appearance normal, both eyes and all related structures EOM: EOMs intact bilaterally Neck: Neck: Yes normal visual inspection and Yes no meningeal signs Resp: Effort & Inspection: normal respiratory effort and no respiratory distress Cardio: Rate: regular rate Skin: Rashes: no rashes Wounds: no wounds Neuro: General: patient oriented x3, tone normal and no meningeal signs Cranial nerves: Yes CN's II-XII intact bilaterally Gait exam (Neuro): Normal gait present Extrem: Other: Right hand thenar eminence with appreciable swelling and tenderness to palpation. Limited full flexion and extension secondary to pain. [id number] opposition limited secondary to pain. Neurovascularly intact. No erythema/warmth. No snuffbox tenderness Course Course Course Narrative: RME: DOne by PALMIRA Nixon. 39-year-old male presents to ED for right thumb pain he hyperextended since Thursday while playing football. Patient states able to move but with pain on movement. On exam positive for right thumb tenderness without any redness ecchymosis or deformity. Patient is able to move thumb but with pain. Rest of extremity normal. X-ray ordered. 1356--XR hand wrist RT IMPRESSION: Negative Results discussed with patient including worrisome signs and symptoms and strict return precautions, and when to return to the emergency department. They verbalized understanding and feel safe for discharge at this time. Medical Decision Making Medical Decision Making MDM Narrative: 39-year-old male with past medical history HTN, NSTEMI, presenting to the ED complaining of right thumb pain s/p hyperextension injury on Thursday while playing football. On exam vital signs stable, NAD, nontoxic appearing physical exam as noted above. Concern for fracture vs strain vs dislocation. No evidence of cellulitis or septic joint Plan: X-ray, pain control Please refer to course for remaining clinical decision making, interpretation of labs/imaging results, and discussions with consultants and/or family members. Differential Diagnosis Differential Diagnoses: The differential diagnosis associated with the presentation includes As above Independent Interpretation I performed an independent interpretation of an: Plain X-Ray Radiology Impression Discussion of test interpretation with radiology: I have reviewed the radiologist's reading. External Record Review External record reviewed: Inpatient record, Office record, Outpatient record, Prior outpatient labs, Prior outpatient radiology, Primary care record and Outside ED record Tests considered The following testing was considered but not selected: As above Prescription Management I considered prescription management with: Pain Medication Discharge Plan Discharge Clinical Impression: Hyperextension injury of finger of right hand Patient Disposition: Home, Self-Care Instructions: Finger Sprain (ED) Additional Instructions: Your x-rays are unremarkable Please ice and rest your thumb Take Tylenol and Motrin for pain Follow-up with her doctor If symptoms persist or worsen return to the ED Prescriptions: No Action amlodipine 5 mg Tablet 5 mg PO DAILY Qty: 1 0RF Protocol: Hold for SBP< HOLD for SBP < : 90 nitroglycerin [Nitrostat] 0.4 mg Tablet, Sublingual 0.4 mg sublingual Q5MX3 PRN (Reason: Chest Pain) Qty: 1 0RF metoprolol tartrate 25 mg Tablet 25 mg PO BID Qty: 1 0RF Protocol: Hold for SBP/HR < HOLD for SBP < : 90 HOLD for HR < : 60 Referrals: Galina Denny MD [Primary Care Provider] - 1 week Interventions: ED Discharge Assessment Last Done: 05/11/24 14:04 Discharge Date/Time: 05/11/24 14:04 Print Language: Mexican
[2024-05-11 14:04] VITALS: BP 157/72; PULSE 73; RESP 16; TEMP 37; O2SAT 97
== END 2024-05-11 14:04 | disposition home or self-care (01) ==
PROVIDERS: Emergency Provider Emergency Medicine; PCP Student in an Organized Health Care Education/Training Program
DX: S69.91XA Unspecified injury of right wrist, hand and finger(s), initial encounter (principal); X50.1XXA Overexertion from prolonged static or awkward postures, initial encounter; Y93.62 Activity, american flag or touch football; Y92.321 Football field as the place of occurrence of the external cause; Y99.9 Unspecified external cause status
CPT/HCPCS: 73110; 73130; 99212; 99282; 99283

== ENCOUNTER 2024-06-22 12:08 | Outpatient (REF) | payer MEDICARE, MEDICAID, SELFPAY ==
--- NOTE | ~2024-06-22 | XR_ITS ---
EXAMINATION: XR FOOT, RIGHT CLINICAL INFORMATION: Right foot pain. COMPARISON: Most recent right foot radiographs dated 05/03/2014. TECHNIQUE: AP, lateral, and oblique views of the right foot. FINDINGS: The bones and soft tissues are normal. No fracture. Alignment is anatomic. Joint spaces are maintained. XR/XR foot RT min 3V IMPRESSION: Unremarkable examination. Electronically signed by: Camilo De León MD 06/22/2024 01:22 PM [facility]
== END 2024-06-22 12:09 | disposition home or self-care (01) ==
LOC: HO.HHCX 12:08
PROVIDERS: Visit Provider Student in an Organized Health Care Education/Training Program
DX: M79.671 Pain in right foot (principal)
CPT/HCPCS: 73630

== ENCOUNTER 2024-08-08 00:46 | Emergency (ER) | payer MEDICARE, MEDICAID, SELFPAY ==
--- NOTE | 2024-08-08 | ECG_ITS ---
Test Reason : CHEST PX Blood Pressure : / mmHG Vent. Rate : 049 BPM Atrial Rate : 049 BPM P-R Int : 164 ms QRS Dur : 098 ms QT Int : 430 ms P-R-T Axes : -04 -05 -04 degrees QTc Int : 388 ms Sinus bradycardia Minimal voltage criteria for LVH, may be normal variant ( R in aVL ) Nonspecific T wave abnormality Abnormal ECG When compared with ECG of 30-NOV-2023 19:27, Vent. rate has decreased BY 27 BPM Referred By: Generic ED Physician Electronically Signed By:ARABELLA PARDO
--- NOTE | ~2024-08-08 | XR_ITS ---
CLINICAL HISTORY: cp 2 view chest x-ray Comparison: CR - CHEST 2 VIEWS [id number] - 01/09/16 19:13 EDT Findings: The lungs are clear. Normal size heart. No acute fracture. IMPRESSION: 1. No acute findings. This document has been electronically signed by: Theron Read MD on 08/08/2024 02:48:24
[2024-08-08 00:55] VITALS: BP 156/89; PULSE 57; RESP 18; TEMP 36.4; O2SAT 97; BMI 38.5
[2024-08-08 01:22] LABS: Basophils Absolute Auto 0.1 X10*3/uL (0.0-0.2); Basophils Percent Auto 1.1 % (0-2); Eosinophils Absolute Auto 0.3 X10*3/uL (0.0-0.4); Eosinophils Percent Auto 3.7 % (0-4); Hematocrit 40.5 % (42.0-52.0); Hemoglobin 14.2 g/dl (14.0-18.0); Imm Gran Abs Auto 0.01 X10*3/uL (0.00-0.03); Imm Gran Pct Auto 0.1 % (0.0-0.4); Lymphocytes Absolute Auto 3.8 X10*3/uL (1.2-4.9); Lymphocytes Percent Auto 51.5 % (20-40); MANUAL DIFF FLAG NO; Mean Corpuscular HGB Conc 35.1 g/dl (31.0-36.0); Mean Corpuscular Hemoglobin 31.1 pg (27.0-33.0); Mean Corpuscular Volume 88.6 fL (80.0-98.0); Mean Platelet Volume 8.6 fL (9.4-12.4); Monocytes Absolute Auto 0.6 X10*3/uL (0.1-1.2); Monocytes Percent Auto 7.5 % (2-11); Neutrophils Absolute Auto 2.7 x10*3/uL (2.0-8.3); Neutrophils Percent Auto 36.1 % (45-73); Platelet Count 293 X10*3/uL (160-400); Red Blood Count 4.57 X10*6/uL (4.60-5.80); White Blood Count 7.4 X10*3/uL (4.8-10.8)
[2024-08-08 01:46] LABS: Alanine Aminotransferase 109 U/L (0-40); Albumin Level 4.2 g/dL (3.5-5.0); Anion Gap 13 (12-20); Aspartate Amino Transferase 45 U/L (5-37); Bilirubin Total 0.2 mg/dL (0.0-1.0); Blood Urea Nitrogen 12 mg/dL (9-16); Calcium 9.4 mg/dL (8.4-10.2); Carbon Dioxide 20 mmol/L (22-29); Chloride 110 mmol/L (96-108); Creatinine Clr Calc Pharmacy 120.5; Estimated Glomerular Filt Rate > 60; Glucose Random 109 mg/dL (60-115); Potassium 3.9 mmol/L (3.3-5.1); Sodium 139 mmol/L (135-145); Total Protein 7.5 g/dL (6.5-8.0)
[2024-08-08 01:47] LABS: Troponin-I High Sensitivity 61.5 ng/L (<3.5-35.0)
[2024-08-08 02:35] LABS: Alkaline Phosphatase 98 U/L (39-117)
--- NOTE | 2024-08-08 02:54 | ED.CHESTPAIN ---
HPI - Chest Pain General Chief Complaint: Chest Pain Stated Complaint: chest pain Time Seen by Provider: 08/08/24 02:53 Source: patient Mode of arrival: ambulatory Limitations: no limitations History of Present Illness ED Provider: HPI narrative: Patient with history of hypertension with demand ischemia with elevated troponin had coronary CT in 11/24 which was negative comes with left-sided chest pain started yesterday without any radiation of pain pain is sharp in character patient is supposed to take amlodipine metoprolol but taking only amlodipine took his metoprolol today briefly patient has had elevated troponin which was assumed coming from the demand ischemia because of hypotension patient does have sleep apnea symptoms but not been diagnosed Related Data Previous Rx's ?Medication ?Instructions ?Recorded amlodipine 5 mg tablet 5 mg PO DAILY #1 tab 12/01/23 metoprolol tartrate 25 mg tablet 25 mg PO BID #1 tab 12/01/23 nitroglycerin 0.4 mg sublingual 0.4 mg sublingual Q5MX3 PRN Chest 12/01/23 tablet (Nitrostat) Pain #1 tab Atorvastitin #1 ea 05/11/24 Allergies Allergy/AdvReac Type Severity Reaction Status Date / Time No Known Allergies Allergy Verified 08/08/24 00:59 Review of Systems Review of Systems: Yes all other systems are reviewed and are negative PMFSH Past Medical History Medical History Primary hypertension No known health problems Family History Family History Mother Diabetes Father Diabetes Kidney failure Social History Social History Alcohol intake: current Alcohol intake frequency: does not drink Alcohol type: beer Patient Tobacco Use Status: Current everyday Tobacco user Smoked in Last 30 Days: No Use of substances other than those prescribed or required for medical reasons: No Advance Directives: No Advance Directives Information Provided: Yes Physical Exam Vital Signs: Vital Signs: Last Vital Signs Temp 98.6 F 08/08/24 04:41 Pulse 53 08/08/24 04:41 Resp 16 08/08/24 04:41 BP 148/62 H 08/08/24 04:41 Pulse Ox 99 08/08/24 04:41 O2 Del Method Room Air 08/08/24 04:41 BMI result Body Mass Index 38.5 Appearance: Alert. Oriented X3. No acute distress. Eyes: PERRLA, No Nystagmus ENT: Pharynx normal. Oral Mucosa moist Neck: Normal inspection. Neck supple. CVS: Normal heart rate and rhythm. Pulses normal. Respiratory: No respiratory distress. Equal air entry bilateral, no wheezing/rales/rhonchi Abdomen: Soft and nontender. Bowel sounds are present, no mass palpable, no CVA tenderness Skin: Skin warm and dry. Normal skin color. Normal skin turgor. Extremities: No lower extremity edema. No calf tenderness Neuro: Oriented X 3. No motor deficit. No sensory deficit.No cerebellar signs , cranial nerves II-XII intact Medical Decision Making Medical Decision Making [facility] Narrative: Patient with atypical chest pain with history of same in the past with previous workup negative no delta change in troponin advised to follow with PCP no acute ischemic changes in the EKG Differential Diagnosis Differential Diagnoses: The differential diagnosis associated with the presentation includes ACS/atypical chest pain/musculoskeletal Admission/Observation Consideration of admission/observation: Escalation of care including admission/observation considered Lab Data [facility] Lab Attestation statement: I reviewed the patient's lab results. 08/08/24 01:18 08/08/24 01:18 Labs: Lab Results 08/08/24 08/08/24 Range/Units 01:18 03:54 WBC 7.4 (4.8-10.8) X10*3/uL RBC 4.57 L (4.60-5.80) X10*6/uL Hgb 14.2 (14.0-18.0) g/dl Hct 40.5 L (42.0-52.0) % MCV 88.6 (80.0-98.0) fL MCH 31.1 (27.0-33.0) pg MCHC 35.1 (31.0-36.0) g/dl RDW 13.0 (11.0-16.0) % Plt Count 293 (160-400) X10*3/uL MPV 8.6 L (9.4-12.4) fL Immature Gran % (Auto) 0.1 (0.0-0.4) % Neut % (Auto) 36.1 L (45-73) % Lymph % (Auto) 51.5 H (20-40) % [place] % (Auto) 7.5 (2-11) % Eos % (Auto) 3.7 (0-4) % Baso % (Auto) 1.1 (0-2) % Lymph # (Auto) 3.8 (1.2-4.9) X10*3/uL [place] # (Auto) 0.6 (0.1-1.2) X10*3/uL Eos # (Auto) 0.3 (0.0-0.4) X10*3/uL Baso # (Auto) 0.1 (0.0-0.2) X10*3/uL Abs Immat Gran (auto) 0.01 (0.00-0.03) X10*3/uL Absolute Neuts (auto) 2.7 (2.0-8.3) x10*3/uL Absolute Nucleated RBC 0.000 (0.0-0.012) X10*3/uL Nucleated RBC % (auto) 0.0 (0.0-0.2) /100WBC Sodium 139 (135-145) mmol/L Potassium 3.9 (3.3-5.1) mmol/L Chloride 110 H (96-108) mmol/L Carbon Dioxide 20 L (22-29) mmol/L Anion Gap 13 (12-20) BUN 12 (9-16) mg/dL Creatinine 0.94 (0.5-1.4) mg/dL Estim Creat Clear Calc 120.5 Estimated GFR > 60 Random Glucose 109 (60-115) mg/dL Calcium 9.4 (8.4-10.2) mg/dL Total Bilirubin 0.2 (0.0-1.0) mg/dL AST 45 H (5-37) U/L ALT 109 H (0-40) U/L Alkaline Phosphatase 98 (39-117) U/L Total Creatine Kinase 87 (38-174) U/L Troponin I High Sens 61.5 H 61.7 H (<3.5-35.0) ng/L Total Protein 7.5 (6.5-8.0) g/dL Albumin 4.2 (3.5-5.0) g/dL Independent Interpretation I performed an independent interpretation of an: EKG Interpretation: Sinus bradycardia with heart rate of 49 beats per minute, LVH nonspecific STT wave changes no acute ischemia Discharge Plan Discharge Clinical Impression: Chest pain, Primary hypertension Patient Disposition: Home, Self-Care Instructions: Chest Pain (ED), Hypertension (ED) Additional Instructions: Take medication for blood pressure as prescribed by your community marketing coordinator Have sleep studies done as planned Follow with your PCP Prescriptions: No Action (DME) Atorvastitin tablet See Rx Instructions .Route .MEDSUPPLY Qty: 1 3RF Rx Instructions: take 1 tab daily amlodipine 5 mg Tablet 5 mg PO DAILY Qty: 1 0RF Protocol: Hold for SBP< HOLD for SBP < : 90 nitroglycerin [Nitrostat] 0.4 mg Tablet, Sublingual 0.4 mg sublingual Q5MX3 PRN (Reason: Chest Pain) Qty: 1 0RF metoprolol tartrate 25 mg Tablet 25 mg PO BID Qty: 1 0RF Protocol: Hold for SBP/HR < HOLD for SBP < : 90 HOLD for HR < : 60 Interventions: ED Discharge Assessment Last Done: 08/08/24 04:41 Discharge Date/Time: 08/08/24 04:42 Print Language: Ukrainian
[2024-08-08 03:00] VITALS: PULSE 55
[2024-08-08 04:18] LABS: Troponin-I High Sensitivity 61.7 ng/L (<3.5-35.0)
[2024-08-08 04:41] VITALS: BP 148/62; PULSE 53; RESP 16; TEMP 37; O2SAT 99
== END 2024-08-08 04:42 | disposition home or self-care (01) ==
PROVIDERS: Emergency Provider Internal Medicine; PCP Student in an Organized Health Care Education/Training Program
DX: R07.9 Chest pain, unspecified (principal); I10 Essential (primary) hypertension; F17.200 Nicotine dependence, unspecified, uncomplicated; Z79.899 Other long term (current) drug therapy
CPT/HCPCS: 36415; 71046; 80053; 82550; 84484; 85025; 93005; 99283; 99285

== ENCOUNTER → 2024-08-08 00:50 | Outpatient (BNV) | payer MEDICARE, MEDICAID, SELFPAY | PROVIDERS: Emergency Provider Internal Medicine; PCP Student in an Organized Health Care Education/Training Program; Visit Provider Internal Medicine | DX: R07.9 Chest pain, unspecified (principal); R00.1 Bradycardia, unspecified; R94.31 Abnormal electrocardiogram [ECG] [EKG] | CPT/HCPCS: 93010 ==

== ENCOUNTER → 2024-08-08 01:15 | Outpatient (BNV) | payer MEDICARE, MEDICAID, SELFPAY | PROVIDERS: Emergency Provider Internal Medicine; PCP Student in an Organized Health Care Education/Training Program; Visit Provider Radiology Diagnostic Radiology | DX: R07.9 Chest pain, unspecified (principal) | CPT/HCPCS: 71046 ==

== ENCOUNTER 2025-02-16 13:19 | Emergency (ER) | payer MEDICARE, MEDICAID, SELFPAY ==
--- NOTE | ~2025-02-16 | US_ITS ---
EXAMINATION: US SCROTUM CLINICAL INFORMATION: Patient states something popped inside left scrotum yesterday.. COMPARISON: 04/05/2022. TECHNIQUE: A sonogram of the scrotum was performed assessing sanabria-scale appearance and color Doppler flow. Spectral Doppler analysis of the arterial and venous flow were performed in the testes bilaterally. FINDINGS: RIGHT: Right testicle measures 4.4 x 2.3 x 2.7 cm, volume 13.7 mL. No focal testicular parenchymal lesions are visualized. Spectral Doppler analysis of the arterial and venous flow is normal in the right testis. Right epididymal head is normal in size. No right hydrocele or varicocele is seen. Right epididymal Doppler flow is normal. LEFT: Left testicle measures 4.2 x 2.2 x 2.7 cm, volume 13.0 mL. No focal testicular parenchymal lesions are visualized. Spectral Doppler analysis of the arterial and venous flow is normal in the left testis. Left epididymal head is normal in size. No left hydrocele or varicocele is seen. Left epididymal Doppler flow is normal. Inferior to the left testis, there is a area of heterogeneous and hypervascular thickening involving the skin, measuring 4.4 x 1.0 x 3.6 cm, with a small skin tract noted. This may be a sequela of a decompressed abscess which was previously seen in the same region on the prior examination. US/US scrotum IMPRESSION: 1. Normal testes and epididymides. No evidence of torsion or testicular mass. No significant hydrocele. 2. Inferior to the left testis there is an area of heterogeneous thickening and hypervascularity, measuring 4.4 x 1.0 x 3.6 cm, with a small skin tract noted. This may be sequela of a recently decompressed dermal or subdermal abscess, which on the prior examination was previously seen in the same region. No residual significant fluid collection evident. Recommend correlating with direct physical examination and inspection. : Electronically signed by: Terrence Fernandez MD 02/16/2025 02:28 PM EDT
[2025-02-16 13:31] VITALS: BP 146/72; PULSE 69; RESP 16; TEMP 36.9; O2SAT 96; BMI 36.9
--- NOTE | 2025-02-16 13:31 | ED.GENADULT ---
HPI - General Adult General Chief complaint: Urogenital-Male Stated complaint: cyst on testicle Time Seen by Provider: 02/16/25 18:09 Source: patient Mode of arrival: ambulatory Limitations: no limitations History of Present Illness ED Provider: Terrence CHAVIS HPI narrative: The patient is a 40-year-old male presenting to the ED reporting approximately 1 week ago he noted a small area of swelling/tenderness on his left scrotum. The patient reports pain and swelling began increasing, last night a punctate area in the center of the swelling ?popped? with a small amount of yellow discharge in his underwear. The patient reports pain is increased with walking and direct palpation, denies associated fever/chills, nausea, vomiting or other systemic complaint. The patient denies any associated hematuria, dysuria, urinary frequency, penile lesions, or urethral discharge. The patient denies shaving hair in the area, but does report he works outside and sweats heavily. Related Data Previous Rx's ?Medication ?Instructions ?Recorded amlodipine 5 mg tablet 5 mg PO DAILY #1 tab 12/01/23 metoprolol tartrate 25 mg tablet 25 mg PO BID #1 tab 12/01/23 nitroglycerin 0.4 mg sublingual 0.4 mg sublingual Q5MX3 PRN Chest 12/01/23 tablet (Nitrostat) Pain #1 tab Atorvastitin #1 ea 05/11/24 acetaminophen 500 mg capsule 1,000 mg (2 x 500 mg) PO .q8 PRN 02/16/25 fever or pain #30 caps cephalexin 500 mg capsule 500 mg PO QID 10 days #40 caps 02/16/25 ibuprofen 600 mg tablet 600 mg PO Q8H PRN fever or pain 02/16/25 #30 tabs Allergies Allergy/AdvReac Type Severity Reaction Status Date / Time No Known Allergies Allergy Verified 02/16/25 13:35 Review of Systems Review of Systems: Yes all other systems are reviewed and are negative PMFSH Past Medical History Medical History Primary hypertension No known health problems Family History Family History Mother Diabetes Father Diabetes Kidney failure Social History Social History Alcohol intake: current Alcohol intake frequency: does not drink Alcohol type: beer Patient Tobacco Use Status: Current everyday Tobacco user Smoked in Last 30 Days: No Use of substances other than those prescribed or required for medical reasons: No Advance Directives: No Advance Directives Information Provided: No Do you have a plan to hurt others: No Plan Physical Exam ED Vital Signs: Vital Signs - 24 hr 02/16/25 13:31 02/16/25 18:49 Temperature 98.5 F 98.1 F Pulse Rate 69 73 Respiratory Rate 16 18 Blood Pressure 146/72 H 158/91 H Pulse Oximetry 96 97 Oxygen Delivery Method Room Air Room Air BMI result Body Mass Index 36.9 CONSTITUTIONAL: The patient appears non-toxic, well nourished and in no acute distress. Vital signs as documented. HEAD: Atraumatic, normocephalic. EYES: EOMs grossly intact, pupils equal, conjunctiva clear, no exudate. ENT: Nares patent, no discharge. Airway patent, no audible stridor, visible mucosa is pink and moist without noted lesions. NECK: Trachea is midline, no obvious masses or gross abnormalities. CHEST: Symmetric movement, normal appearance. LUNGS: LS present and CTAB, no w/r/r. Non-labored work of breathing. CARDIAC: Regular Rhythm, S1/S2 appreciated, no murmurs, rubs or gallops. ABDOMEN: Abdomen soft and non-tender x4 quadrants, no palpable masses or organomegaly. : There is induration and erythema noted to the left lateral scrotum, no appreciated fluctuance or visible purulence, no penile lesions or urethral discharge, no inguinal tenderness. EXTREMITIES: Normal tone, moves all extremities spontaneously without reported pain. No obvious acute injury or deformity noted. NEURO: Alert and oriented x3, CN II-XII appear grossly intact. Cerebellar Functioning grossly intact. No obvious sensory or motor deficits. Speech clear and appropriate. PSYCH: normal affect, appropriate eye contact, fluid speech, with appropriate response to questioning. No reported suicidality or homicidality. SKIN: Warm, dry, color appropriate, normal turgor. No rashes noted. Course Course Course Narrative: This is a rapid medical exam performed by Jose Chaudhary NP: Additional HPI, ROS, PE not included below will be deferred to primary provider. Patient is a 40-year-old male presenting with complaint of cyst to left scrotum x 1 week which popped last night. Complains of pain to that area. Denies fevers, difficulty with urination. Plan: u/s Medications Administered Discontinued Medications Generic Name Dose Route Start Last Admin Trade Name Barbara PRN Reason Stop Dose Admin Acetaminophen 975 mg 02/16/25 19:05 02/16/25 19:18 Acetaminophen 325 Mg Tablet PO 02/16/25 19:06 975 mg ONCE ONE Administration Cephalexin HCl 500 mg 02/16/25 19:05 02/16/25 19:18 Cephalexin 500 Mg Capsule PO 02/16/25 19:06 500 mg ONCE ONE Administration Ibuprofen 600 mg 02/16/25 19:05 02/16/25 19:18 Ibuprofen 600 Mg Tablet PO 02/16/25 19:06 600 mg ONCE ONE Administration Medical Decision Making Medical Decision Making [facility] Narrative: 7:10 PM 02/16/2025 (Lakia CHAVIS): Patient is a 40-year-old male presenting to the ED reporting for the past week he has been experiencing swelling and erythema of the left scrotum, with a punctate area of purulence which ruptured yesterday with yellow drainage in his underwear. The patient denies associated fever/chills, nausea, vomiting or other systemic complaint, denies any penile lesions or urethral discharge. The patient's exam is concerning for cellulitis, no evidence of palpable or visible abscess. The patient was sent for ultrasound which shows normal testicle and epididymis bilaterally without evidence of torsion or hydrocele. There is evidence of induration, hypervascularity, and a small skin tag noted in the scrotal wall inferior to the left testes which may be sequelae of a recently decompressed dermal or subdural abscess without residual significant fluid collection. Of note the patient had a scrotal ultrasound in 2021 which showed similar phlegmonous changes in the left scrotal wall. The patient's presentation and ultrasound are consistent with scrotal cellulitis without evidence of gas-forming infection or abscess, no indication for incision and drainage. The patient will be treated with antibiotics and anti-inflammatories, we will add on UA to ensure no urinary involvement and plan to discharge with p.o. antibiotics. 8:44 PM 02/16/2025 (Lakia CHAVIS): The patient's UA is unremarkable, we will discharge with antibiotics and anti-inflammatories for scrotal cellulitis. Admission/Observation Consideration of admission/observation: Escalation of care including admission/observation considered Lab Data MDM Lab Attestation statement: I reviewed the patient's lab results. Labs: Lab Results 02/16/25 Range/Units 20:15 Urine Color Dark Yellow Urine Appearance Clear Urine pH 5.0 (5.0-9.0) Ur Specific [place] >= 1.030 H (1.005-1.025) Urine Protein Negative (Neg-Trace) mg/dL Urine Glucose (UA) Negative (Negative) mg/dL Urine Ketones Negative (Negative) mg/dL Urine Blood Negative (Negative) Urine Nitrite Negative (Negative) Ur Leukocyte Esterase Negative (Negative) Radiology Impression Discussion of test interpretation with radiology: I have reviewed the radiologist's reading. Radiologist Impression: EXAMINATION: US SCROTUM CLINICAL INFORMATION: Patient states something popped inside left scrotum yesterday.. COMPARISON: 04/05/2022. TECHNIQUE: A sonogram of the scrotum was performed assessing sanabria-scale appearance and color Doppler flow. Spectral Doppler analysis of the arterial and venous flow were performed in the testes bilaterally. FINDINGS: RIGHT: Right testicle measures 4.4 x 2.3 x 2.7 cm, volume 13.7 mL. No focal testicular parenchymal lesions are visualized. Spectral Doppler analysis of the arterial and venous flow is normal in the right testis. Right epididymal head is normal in size. No right hydrocele or varicocele is seen. Right epididymal Doppler flow is normal. LEFT: Left testicle measures 4.2 x 2.2 x 2.7 cm, volume 13.0 mL. No focal testicular parenchymal lesions are visualized. Spectral Doppler analysis of the arterial and venous flow is normal in the left testis. Left epididymal head is normal in size. No left hydrocele or varicocele is seen. Left epididymal Doppler flow is normal. Inferior to the left testis, there is a area of heterogeneous and hypervascular thickening involving the skin, measuring 4.4 x 1.0 x 3.6 cm, with a small skin tract noted. This may be a sequela of a decompressed abscess which was previously seen in the same region on the prior examination. US/US scrotum IMPRESSION: 1. Normal testes and epididymides. No evidence of torsion or testicular mass. No significant hydrocele. 2. Inferior to the left testis there is an area of heterogeneous thickening and hypervascularity, measuring 4.4 x 1.0 x 3.6 cm, with a small skin tract noted. This may be sequela of a recently decompressed dermal or subdermal abscess, which on the prior examination was previously seen in the same region. No residual significant fluid collection evident. Recommend correlating with direct physical examination and inspection. : Electronically signed by: Terrence Fernandez MD 02/16/2025 02:28 PM EDT Tests considered The following testing was considered but not selected: CT abd and Pelvis Prescription Management I considered prescription management with: Pain Medication and Antibiotic Discharge Plan Discharge Clinical Impression: Cellulitis of scrotum Patient Disposition: Home, Self-Care Instructions: Cellulitis (ED) Additional Instructions: Thank you for choosing [facility]'s Emergency Department for your care today. Thankfully your ultrasound, exam, and urinalysis today show no evidence of any abscess, testicular torsion, testicular infection, epididymal infection, or other acute process requiring admission to the hospital or continued ED observation, and it is safe to discharge you home. Your ultrasound does show evidence of cellulitis of your scrotal wall without obvious fluid collection/abscess. As such there is no indication for incision and drainage of the area. It is important however that you take cephalexin as prescribed until it is finished. You should take alternating (staggered) doses of ibuprofen 600mg and Tylenol 1000mg every 4 hours as needed for any additional pain. Please apply ice for 20 minutes every hour. Please stay well hydrated and get plenty of rest. Please follow up with your primary care physician for re-evaluation, additional management of your symptoms, and continued preventative care. If you do not have a primary care physician, please call the [facility] at [phone] to establish a new primary care physician. While waiting to establish your new primary care physician, you can call our [facility] at [phone] for non-emergency needs. Please return to the emergency department if you develop a severe or sudden change in your symptoms, a fever over 100.4 that does not improve with Tylenol or Ibuprofen, recurrent vomiting, or any other new or worsening symptoms or concerns. Prescriptions: New ibuprofen 600 mg tablet 600 mg PO Q8H PRN (Reason: fever or pain) Qty: 30 0RF acetaminophen 500 mg capsule 1,000 mg PO .q8 PRN (Reason: fever or pain) Qty: 30 0RF cephalexin 500 mg capsule 500 mg PO QID 10 Days Qty: 40 0RF No Action (DME) Atorvastitin tablet See Rx Instructions .Route .MEDSUPPLY Qty: 1 3RF Rx Instructions: take 1 tab daily amlodipine 5 mg Tablet 5 mg PO DAILY Qty: 1 0RF Protocol: Hold for SBP< HOLD for SBP < : 90 nitroglycerin [Nitrostat] 0.4 mg Tablet, Sublingual 0.4 mg sublingual Q5MX3 PRN (Reason: Chest Pain) Qty: 1 0RF metoprolol tartrate 25 mg Tablet 25 mg PO BID Qty: 1 0RF Protocol: Hold for SBP/HR < HOLD for SBP < : 90 HOLD for HR < : 60 Referrals: Galina Denny MD [Primary Care Provider, Internal Medicine] Clinical Impression: Cellulitis of scrotum Print Language: [place]
--- OUTSIDE RECORDS SUMMARY | 2025-02-16 17:58 | XMS_ITS | Clinical Summary ---
Author Organization [employer] Address [address] [place] [address] Care Team Providers Care Rn Endocrinology Name Role Phone Galina Denny MD Primary Care Pro vider Allergies No known active allergies Medications * This document contains information received from the source organization and may not represent a complete record from that organization. Blood Pressure kit 1 Device Once per day. 1 kit 02/02/20 24 Active nystatin (Mycostatin) 173883 UNIT/GM powder Apply topically 2 times daily. 30 g 06/22/20 24 025 Active metoprolol tartrate (Lopressor) 25 MG tablet TAKE 1 TABLET BY MOUTH TWICE DAILY 180 tablet 10/28/19 25 Active amLODIPine (Norvasc) 5 MG tablet TAKE 1 TABLET BY MOUTH EVERY DAY 90 tablet 01/19/20 25 Active amLODIPine (Norvasc) 5 MG tablet TAKE 1 TABLET BY MOUTH EVERY DAY 90 tablet 10/28/19 25 025 Discontinued Active Problems Problem Noted Date Diagnosed Date Tinea pedis 06/22/2024 Right foot pain 06/22/2024 HLD (hyperlipidemia) 03/22/2024 Transaminitis 03/22/2024 HTN (hypertension) 02/02/2024 Abnormal EKG 02/02/2024 Tobacco use 06/05/2023 Obesity (BMI 30-39.9) 06/05/2023 Bipolar 1 disorder 06/05/2023 Assessment & Plan (06/08/2023 9:44 AM EST): Patient with symptoms of anxiety and history of bipolar disorder since he was 19 years-old. No risk for SI/HI nor self-harm. Reason to visit was to assess symptoms, provide intervention and offer referral. Lito declined OP referral for individual therapy and Care Management. He will connect with clinician during his next appointment if needed. Provided psychoeducation around anxiety and ways to manage symptoms utilizing coping mechanisms. At this time Lito Woo meets criteria for Visit Diagnoses: Problem List Items Addressed This Visit Other Bipolar 1 disorder (CMS/HCC) Anxiety Financial problems Patient ready to address current needs No Strengths include ability to use coping skills and mechanisms to decrease symptoms. PLAN: 1. Follow up with [facility]: Not recommended for follow-up 2. Patient goal is continue using coping skills and be able to manage symptoms 3. Behavioral Recommendations a. Incorporate self-care into daily routine b. Use coping mechanisms to decrease symptoms c. Connect with clinician during next physical if needed Health care maintenance 06/05/2023 Anxiety 06/04/2023 Assessment & Plan (06/08/2023 9:44 AM EST): Patient with symptoms of anxiety and history of bipolar disorder since he was 19 years-old. No risk for SI/HI nor self-harm. Reason to visit was to assess symptoms, provide intervention and offer referral. Lito declined OP referral for individual therapy and Care Management. He will connect with clinician during his next appointment if needed. Provided psychoeducation around anxiety and ways to manage symptoms utilizing coping mechanisms. At this time Lito Woo meets criteria for Visit Diagnoses: Problem List Items Addressed This Visit Other Bipolar 1 disorder ([facility]/HCC) Anxiety Financial problems Patient ready to address current needs No Strengths include ability to use coping skills and mechanisms to decrease symptoms. PLAN: 1. Follow up with [facility]: Not recommended for follow-up 2. Patient goal is continue using coping skills and be able to manage symptoms 3. Behavioral Recommendations a. Incorporate self-care into daily routine b. Use coping mechanisms to decrease symptoms c. Connect with clinician during next physical if needed Financial problems 06/04/2023 Assessment & Plan (06/08/2023 9:44 AM EST): Patient with symptoms of anxiety and history of bipolar disorder since he was 19 years-old. No risk for SI/HI nor self-harm. Reason to visit was to assess symptoms, provide intervention and offer referral. Lito declined OP referral for individual therapy and Care Management. He will connect with clinician during his next appointment if needed. Provided psychoeducation around anxiety and ways to manage symptoms utilizing coping mechanisms. At this time Lito Woo meets criteria for Visit Diagnoses: Problem List Items Addressed This Visit Other Bipolar 1 disorder ([facility]) Anxiety Financial problems Patient ready to address current needs No Strengths include ability to use coping skills and mechanisms to decrease symptoms. PLAN: 1. Follow up with [facility]: Not recommended for follow-up 2. Patient goal is continue using coping skills and be able to manage symptoms 3. Behavioral Recommendations a. Incorporate self-care into daily routine b. Use coping mechanisms to decrease symptoms c. Connect with clinician during next physical if needed Resolved Problems Problem Noted Date Diagnosed Date Resolved Date Lymphadenopathy 08/11/2023 02/02/2024 Encounters Date Type Department Care Team Description 02/16/2025 Orders Only [facility] External Provider, [facility] 01/18/2025 Refill [facility] [address] [place], [place] [phone] Sharmila Manning MD 01/03/2025 Telephone [facility] [address] [place] [address] Galina Denny MD Referral 12/05/2024 Telephone [facility] [address] [place] [address] Galina Denny MD [facility]. recall from Last 3 Months Immunizations Immunization Administration Dates Next Due DTP 04/09/1989, 8,01/08/1987,1985,02/20/1986 Hep B, Adolescent or Pediatric 12/07/1998,1997,03/19/1998 Hib (HbO) 02/20/1986 IPV 04/09/1989, 7,02/20/1986,1984 MMR 06/24/1996,02/20/1986 Pneumococcal Conjugate PCV 20 02/02/2024 TD (adult), 2 Lf tetanus tox oid, preservative free, adsorbed 06/05/1998 Td (adult), 5 Lf tetanus tox oid, preservative free, adsorbed 09/08/2013 Tdap 02/02/2024 Family History Medical History Relation Name Comments DM2 Brother Asthma Mother Relation Name Status Comments Brother Mother Social History Tobacco Use Types Packs/Day Years Used Date Smoking Tobacco: Former Cigarettes Smokeless Tobacco: Never Tobacco Cessation:Counseling Given: Not Answered Comments:Started 19 years ago ,stopped for 3 months using patches-Now smokes 10 cig a day in last 20 years .PQT a year calc 7 Alcohol Use Standard Drinks/Week Comments Yes 0 (1 standard drink = 0.6 oz pur e alcohol) social Alcohol Answer Date Recorded How often do you have a drink containing alcohol ? 3 06/22/2024 How many drinks containing a lcohol do you have on a typical day when you are drinking? 2 06/22/2024 How often do you have six or more drinks on one occasion? 2 06/22/2024 Depression Answer Date Recorded Patient Health Questionnaire-9 Score 0 06/22/2024 Patient Health Questionnaire-9 Score 0 06/22/2024 Last PHQ-9: Questionnaire Data Not on file 1 08/22/2023 Housing Stability Answer Date Recorded What is your housing situation today? I have srinath monique 05/28/[address] you li ve. Do you have problems with any of the following? None of the above 05/28/2023 Food Insecurity Answer Date Recorded Within the past 12 months, y ou worried that your food would run out before you got money to buy more: Never True 01/11/2024 Within the past 12 months,th e food you bought just didn't last and you didn't have enough money to get more: Never True 05/2024 Transportation Answer Date Recorded In the past 12 months, has l ack of transportation kept you from medical appts, meetings, work or from getting things needed for daily living? No 05/28/2023 Utilities Answer Date Recorded In the past 12 months, has t he electric, gas, oil or water company threatened to shut off services in your home? No 05/28/2023 Depression Answer Date Recorded Patient Health Questionnaire-2 Score 0 06/22/2024 Sex and Gender Information Value Date Recorded Sex Assigned at Male 06/02/2022 10:14 AM EDT Legal Sex Male 10:14 AM EDT Gender Identity Male 06/02/2022 10:14 AM EDT Sexual Orientation Straight 06/02/2022 10 :14 AM EDT Last Filed Vital Signs Vital Sign Reading Time Taken Comments Blood Pressure 143/62 06/22/2024 11:00 AM EST Pulse 72 06/22/2024 11:00 AM EST Temperature 36.7 C (98.1 F) 06/22/2024 11:00 AM EST Respiratory Rate 20 06/22/2024 11:00 AM EST Oxygen Saturation 98% 06/22/2024 11:00 AM EST Inhaled Oxygen Concentration - - Weight 109 kg (240 lb 12.8 oz) 06/22/2024 11:00 AM EST Height 167.6 cm (5' 6 ) 06/22/2024 11:00 AM EST Body Mass Index 38.87 06/22/2024 11:00 AM EST Plan of Treatment Upcoming Encounters Date Type Department Care Team (Late st Contact Info) Description 03/03/2025 10:00 AM EDT Office Visit [facility] [address] [place] [phone] Galina Denny MD [address] [place], [place] [phone] Health Maintenance Due Date Last Done Comments Dental Oral Exam 1984 Dental Prophylaxis 1984 Dental X-Ray: Bitewings 1984 Family Planning (PISQ) 01/29/1999 HPV Vaccines (1 - Male 3-dose series) 01/29/1999 Dental X-Ray: Full Mouth 10/22/2011 10/20/2008 COVID-19 Vaccine ( season) 2024 01/08/2021, 12/12/2020 SDOH Screening 01/10/2025 01/11/2024 Influenza Vaccine (#1) 2025 Alcohol/Substance Use Screening 06/22/2025 06/22/2024 Depression Screening 06/22/2025 06/22/2024, 06/22/20 Disability Screening 06/22/2025 06/22/2024 Tobacco Screening 06/22/2025 06/22/2024 Lipid Panel 03/15/2029 03/15/2024 Zoster Vaccines (1 of 2) 01/29/2034 DTaP/Tdap/Td Vaccines (7 - Td or Tdap) 02/01/2034 02/02/2024, 09/08/2013, 06/05/1998, Additional history exists RSV Patients and Patients Aged 60 years or older (1 - 1-dose 75+ series) 01/29/2059 HIB Vaccines Completed 02/20/1986 IPV Vaccines Completed 04/09/1989, 03/1987, 02/20/1986, Additional history exists Hepatitis B Vaccines Completed 12/07/1998, 05/05/1998, 03/19/1998 Pneumococcal Vaccine: Pediatrics (0 to 5 Years) and At-Risk Patients (6 to 49) Years Aged Out 02/02/2024 No longer eligible based on patient's age to complete this topic HIV Screening Completed 03/15/2024 Hepatitis C Screening Completed 03/15/2024 Hepatitis A Vaccines Aged Out No long er eligible based on patient's age to complete this topic Meningococcal B Vaccine Aged Out No l onger eligible based on patient's age to complete this topic Meningococcal Vaccine Aged Out No sarah will eligible based on patient's age to complete this topic RSV under 20 months Aged Out No longe r eligible based on patient's age to complete this topic Rotavirus Vaccines Aged Out No longer eligible based on patient's age to complete this topic Procedures Procedure Name Priority Date/Time Associated Diagnosis Comments US SCROTUM Routine 02/16/2025 12:53 PM EDT HEPATITIS C AB W/REFL TO HCV RNA, QN, PCR Routine 03/15/2024 8:40 AM EDT Annual physical exam HIV 1/2 ANTIGEN/ANTIBODY, FOURTH GENERATION W/RFL Routine 03/15/2024 8:40 AM EDT Annual physical exam LIPID PANEL, STANDARD Routine 03/15/2024 8:40 AM EDT Annual physical exam PANORAMIC RADIOGRAPHIC IMAGE Routine 10/20/2008 12:00 AM EDT from Last 3 Months or Most Recently Relevant to Health Maintenance Results * US Scrotum (02/16/2025 12:53 PM EDT) Anatomical Region Laterality Modality Body Ultrasound 02/16/2025 12:5 3 PM EDT Narrative 02/16/2025 2:31 PM EDT [address] [phone] Ultrasound Report Signed Patient: Lito Trujillo MR#: [id number] : 1985 Acct:[id number] Age/Sex: 40 / M ADM Date: 02/16/25 Loc: HO.ED Attending Dr: Ordering Physician: Mami Chaudhary NP Date of Service: 02/16/25 Procedure(s): US scrotum Accession Number(s): [id number] cc: Galina Denny MD; Mami Chaudhary NP EXAMINATION: US SCROTUM CLINICAL INFORMATION: Patient states something popped inside left scrotum yesterday.. COMPARISON: 04/05/2022. TECHNIQUE: A sonogram of the scrotum was performed assessing sanabria-scale appearance and color Doppler flow. Spectral Doppler analysis of the arterial and venous flow were performed in the testes bilaterally. FINDINGS: RIGHT: Right testicle measures 4.4 x 2.3 x 2.7 cm, volume 13.7 mL. No focal testicular parenchymal lesions are visualized. Spectral Doppler analysis of the arterial and venous flow is normal in the right testis. Right epididymal head is normal in size. No right hydrocele or varicocele is seen. Right epididymal Doppler flow is normal. LEFT: Left testicle measures 4.2 x 2.2 x 2.7 cm, volume 13.0 mL. No focal testicular parenchymal lesions are visualized. Spectral Doppler analysis of the arterial and venous flow is normal in the left testis. Left epididymal head is normal in size. No left hydrocele or varicocele is seen. Left epididymal Doppler flow is normal. Inferior to the left testis, there is a area of heterogeneous and hypervascular thickening involving the skin, measuring 4.4 x 1.0 x 3.6 cm, with a small skin tract noted. This may be a sequela of a decompressed abscess which was previously seen in the same region on the prior examination. US/US scrotum IMPRESSION: 1. Normal testes and epididymides. No evidence of torsion or testicular mass. No significant hydrocele. 2. Inferior to the left testis there is an area of heterogeneous thickening and hypervascularity, measuring 4.4 x 1.0 x 3.6 cm, with a small skin tract noted. This may be sequela of a recently decompressed dermal or subdermal abscess, which on the prior examination was previously seen in the same region. No residual significant fluid collection evident. Recommend correlating with direct physical examination and inspection. : Electronically signed by: Terrence Fernandez MD 02/16/2025 02:28 PM EDT RP Dictated By: Terrence Fernandez MD Signed By: <Electronically signed by Terrence Fernandez MD in OV> 02/16/25 1428 DD/ 1253 TD/TT: 02/16/25 1301 Fence Setter: Procedure Note Donotuseinterpreter, Image - 02/16/2025 [place] [phone] Ultrasound Report Signed Patient: Lito TrujilloMR#: [id number] : 1985Acct:[id number] Age/Sex: 40 / MADM Date: 02/16/25 Loc: HO.ED Attending Dr: Ordering Physician: Mami Chaudhary NP Date of Service: 02/16/25 Procedure(s): US scrotum Accession Number(s): [id number] cc: Galina Denny MD; Mami Chaudhary NP EXAMINATION: US SCROTUM CLINICAL INFORMATION: Patient states something popped inside left scrotum yesterday.. COMPARISON: 04/05/2022. TECHNIQUE: A sonogram of the scrotum was performed assessing sanabria-scale appearance and color Doppler flow. Spectral Doppler analysis of the arterial and venous flow were performed in the testes bilaterally. FINDINGS: RIGHT: Right testicle measures 4.4 x 2.3 x 2.7 cm, volume 13.7 mL. No focal testicular parenchymal lesions are visualized. Spectral Doppler analysis of the arterial and venous flow is normal in the right testis. Right epididymal head is normal in size. No right hydrocele or varicocele is seen. Right epididymal Doppler flow is normal. LEFT: Left testicle measures 4.2 x 2.2 x 2.7 cm, volume 13.0 mL. No focal testicular parenchymal lesions are visualized. Spectral Doppler analysis of the arterial and venous flow is normal in the left testis. Left epididymal head is normal in size. No left hydrocele or varicocele is seen. Left epididymal Doppler flow is normal. Inferior to the left testis, there is a area of heterogeneous and hypervascular thickening involving the skin, measuring 4.4 x 1.0 x 3.6 cm, with a small skin tract noted. This may be a sequela of a decompressed abscess which was previously seen in the same region on the prior examination. US/US scrotum IMPRESSION: 1. Normal testes and epididymides. No evidence of torsion or testicular mass. No significant hydrocele. 2. Inferior to the left testis there is an area of heterogeneous thickening and hypervascularity, measuring 4.4 x 1.0 x 3.6 cm, with a small skin tract noted. This may be sequela of a recently decompressed dermal or subdermal abscess, which on the prior examination was previously seen in the same region. No residual significant fluid collection evident. Recommend correlating with direct physical examination and inspection. : Electronically signed by: Terrence Fernandez MD 02/16/2025 02:28 PM EDT Dictated By: Terrence Fernandez MD Signed By: <Electronically signed by Terrence Fernandez MD in OV> 02/16/25 1428 DD/ 1253 TD/TT: 02/16/25 1301 Fence Setter: [facility] External Provider IMG US PROCEDURES Edited Result - Final * Hepatitis C Antibody with Reflex to HCV, RNA, Quantitative, Real-Time PCR (03/15/2024 8:40 AM EDT) Hepatitis C Antibody Nonreactive Nonreactive [facility] Comment:Antibodies to HCV no t detected; does not exclude early acuteHCV infection. Blood Venous blood specimen / Unknown 03/15/2024 8:40 AM EDT 03/15/2024 11:26 AM EDT Galina Maynard MD LAB BLOOD ORDERAB LES Final Result [facility] [address] [place] [phone] * HIV-1/2 Antigen and Antibodies, Fourth Generation, with Reflexes (03/15/2024 8:40 AM EDT) HIV AB/AG Nonreactive Nonreactive [facility] Comment:HIV-1 p24 Ag and/or HIV-1/HIV-2 Ab not detected.A test result that is nonreactive does not exclude thepossibility of exposure to or infection with HIV-1 and/orHIV-2. Nonreactive results in this assay for individualswith prior exposure to HIV-1 and/or HIV-2 may be due toantigen and antibody levels that are below the limit ofdetection of this assay.The [employer] HIV Ag/Ab Combo assay result andsupplemental assay results should be interpreted inconjunction with the patient's clinical presentation,history and other laboratory results. If the results areinconsistent with clinical evidence, additional testing issuggested to confirm the result. Blood Venous blood specimen / Unknown 03/15/2024 8:40 AM EDT 03/15/2024 11:26 AM EDT us Galina Maynard MD LAB BLOOD ORDERAB LES Final Result [facility] [address] [place] [phone] * (ABNORMAL) Lipid Panel, Standard (03/15/2024 8:40 AM EDT) Triglycerides 120 <150 mg/dL [facility] Comment:Desirable Triglyceri de: less than 150 mg/dLBorderline High Triglyceride 150-199 mg/dLHigh Triglyceride: 200-499 mg/dLVery High Triglyceride: greater than or equal to 5OO mg/dL Cholesterol 203(H) <200 mg/dL [facility] Comment:Desirable Cholestero l: less than 200 mg/dLBorderline High Cholesterol: 200-239 mg/dLHigh Cholesterol: greater than 239 mg/dL LDL Cholesterol Calculated 132(H) <100 mg/dL [facility] Comment:Desirable LDL: less than 100 mg/dLNear Optimal/Above Optimal LDL: 110- 129 mg/dLBorderline High LDL: 130-159 mg/dLHigh LDL: 160-189 mg/dLVery High LDL: greater than or equal to 190 mg/dL HDL Cholesterol 47 >40 mg/dL [facility] Comment:Desirable HDL: great er than 40 mg/dL Note: This HDL assay may give artificially low results in patients with liver disease. Blood Venous blood specimen / Unknown 03/15/2024 8:40 AM EDT 03/15/2024 11:33 AM EDT Galina Maynrad MD LAB BLOOD ORDERAB LES Final Result [facility] [address] [place] [phone] from Last 3 Months or Most Recently Relevant to Health Maintenance Insurance [facility] STANDARD MEDICARE DENTAL-[facility] MEDICAID STAND ADULT Care Teams Rn Endocrinology Relationship Specialty Start Date End Date Galina Denny MD [address] [place] [phone] PCP - General Internal Medicine 06/04/23
[2025-02-16 18:49] VITALS: BP 158/91; PULSE 73; RESP 18; TEMP 36.7; O2SAT 97
--- NOTE | 2025-02-16 19:41 | PC.NURSE ---
assumed care of pt. Medicated per OCT.
[2025-02-16 20:21] LABS: Appearance Urine Clear; Glucose Urine UA Negative (Negative); PH 5.0 (5.0-9.0); Specific Gravity - Urine >= 1.030 (1.005-1.025)
[2025-02-16 20:56] VITALS: BP 154/91; PULSE 72; RESP 16; TEMP 36.6; O2SAT 98
== END 2025-02-16 20:58 | disposition home or self-care (01) ==
PROVIDERS: Physician Assistant; Emergency Provider Internal Medicine; PCP Student in an Organized Health Care Education/Training Program
DX: N49.2 Inflammatory disorders of scrotum (principal); N44.2 Benign cyst of testis; N50.812 Left testicular pain
CPT/HCPCS: 76870; 81003; 99284

== ENCOUNTER → 2025-02-16 13:32 | Outpatient (BNV) | payer MEDICARE, MEDICAID, SELFPAY | PROVIDERS: PCP Student in an Organized Health Care Education/Training Program; Visit Provider Radiology Diagnostic Radiology | DX: L02.214 Cutaneous abscess of groin (principal) | CPT/HCPCS: 76870 ==

== ENCOUNTER 2025-05-14 10:48 | Emergency (ER) | payer MEDICARE, MEDICAID, SELFPAY ==
--- NOTE | ~2025-05-14 | US_ITS ---
CLINICAL HISTORY: L testicle pain, redness US Scrotum with color flow and pulse Doppler with spectral analysis: Comparison: 02/16/2025 Technique: Real time sonographic imaging, including pulse Doppler and color-flow imaging, was performed. Multiple chemical sales representative static images were saved for review. Findings: Right testicle normal size and echotexture, measuring 4.2 x 2.2 x 2.5cm. Normal color and spectral analysis. Left testicle normal size and echotexture, measuring 4.5 x 2.4 x 2.7 cm. Normal color and spectral analysis. Normal epididymides. A small fluid collection in the right scrotum is most likely physiologic. No varicoceles. Impression: On the worksheet, it is suggested that a nonvascular hypodensity in the inferior left testicle measuring 1.7 x 1.0 cm is possibly an abscess. It is unlikely that this hypodensity is related to testicular or epididymal abscess without reactive hydrocele and without asymmetric hyperemia involving the left testicle. Blood flow in left and right testicles is symmetric. An area of hyperemia in the left scrotum is more likely consistent with cellulitis or fasciitis unrelated to the testicle. Early stage infection of the scrotum is possible, correlate with clinical presentation. Scrotum skin thickness, 7 mm, is abnormal on the left side. This finding would correlate with scrotal cellulitis and/or fasciitis. This document has been electronically signed by: Ricki Barba MD on 05/14/2025 13:35:09
--- NOTE | ~2025-05-14 | US_ITS ---
CLINICAL HISTORY: L testicle pain, redness US Scrotum with color flow and pulse Doppler with spectral analysis: Comparison: 02/16/2025 Technique: Real time sonographic imaging, including pulse Doppler and color-flow imaging, was performed. Multiple auto claim representative static images were saved for review. Findings: Right testicle normal size and echotexture, measuring 4.2 x 2.2 x 2.5cm. Normal color and spectral analysis. Left testicle normal size and echotexture, measuring 4.5 x 2.4 x 2.7 cm. Normal color and spectral analysis. Normal epididymides. A small fluid collection in the right scrotum is most likely physiologic. No varicoceles. Impression: On the worksheet, it is suggested that a nonvascular hypodensity in the inferior left testicle measuring 1.7 x 1.0 cm is possibly an abscess. It is unlikely that this hypodensity is related to testicular or epididymal abscess without reactive hydrocele and without asymmetric hyperemia involving the left testicle. Blood flow in left and right testicles is symmetric. An area of hyperemia in the left scrotum is more likely consistent with cellulitis or fasciitis unrelated to the testicle. Early stage infection of the scrotum is possible, correlate with clinical presentation. Scrotum skin thickness, 7 mm, is abnormal on the left side. This finding would correlate with scrotal cellulitis and/or fasciitis. This document has been electronically signed by: Ricki Barba MD on 05/14/2025 13:35:09
[2025-05-14 10:56] VITALS: BP 163/78; PULSE 75; RESP 14; TEMP 36.3; O2SAT 94; BMI 38.5
[2025-05-14 11:12] LABS: Hematocrit 43.1 % (42.0-52.0); Hemoglobin 14.8 g/dl (14.0-18.0); Imm Gran Abs Auto 0.03 X10*3/uL (0.00-0.03); Imm Gran Pct Auto 0.3 % (0.0-0.4); Lymphocytes Absolute Auto 3.3 X10*3/uL (1.2-4.9); MANUAL DIFF FLAG NO; Mean Corpuscular HGB Conc 34.3 g/dl (31.0-36.0); Mean Corpuscular Hemoglobin 31.2 pg (27.0-33.0); Mean Corpuscular Volume 90.7 fL (80.0-98.0); NRBC Abs Auto 0.000 X10*3/uL (0.0-0.012); NRBC Pct Auto 0.0 /100WBC (0.0-0.2); Platelet Count 318 X10*3/uL (160-400); Red Blood Count 4.75 X10*6/uL (4.60-5.80); White Blood Count 11.4 X10*3/uL (4.8-10.8)
[2025-05-14 11:25] LABS: Alanine Aminotransferase 60 U/L (0-40); Albumin Level 4.5 g/dL (3.5-5.0); Alkaline Phosphatase 82 U/L (39-117); Anion Gap 12 (12-20); Aspartate Amino Transferase 28 U/L (5-37); Blood Urea Nitrogen 12 mg/dL (9-16); Calcium 9.5 mg/dL (8.4-10.2); Carbon Dioxide 26 mmol/L (22-29); Chloride 107 mmol/L (96-108); Creatinine Clr Calc Pharmacy 98.3; Estimated Glomerular Filt Rate > 60; Potassium 4.3 mmol/L (3.3-5.1); Sodium 141 mmol/L (135-145); Total Protein 7.4 g/dL (6.5-8.0)
--- NOTE | 2025-05-14 11:30 | ED.MALEGU ---
HPI - Male Genitourinary General Chief complaint: Urogenital-Male Stated complaint: cyst testicle Time Seen by Provider: 05/14/25 11:29 Source: patient, RN notes reviewed and old records reviewed Mode of arrival: ambulatory Limitations: no limitations History of Present Illness ED Provider: SHEILA Ocampo HPI Narrative: 40-year-old male with medical history of HTN, NSTEMI, presents to the ED due to 3 days of left-sided testicular pain. Patient reports testicular pain started 3 days ago when he woke up in the morning and noticed pain and swelling of the left testicle. Patient states the pain has been progressively worsening and is now traveling into the right side of the lower abdomen, has noticed some redness to the area. Patient states pain is exacerbated with movement and pressure on the testicle. Patient has been taking Tylenol ibuprofen without effect. Patient reports history of cyst of the left testicle, and pain feels similar. Denies fevers, chills, nausea, vomiting, penile discharge, hematuria. Related Data Previous Rx's ?Medication ?Instructions ?Recorded amlodipine 5 mg tablet 5 mg PO DAILY #1 tab 12/01/23 metoprolol tartrate 25 mg tablet 25 mg PO BID #1 tab 12/01/23 nitroglycerin 0.4 mg sublingual 0.4 mg sublingual Q5MX3 PRN Chest 12/01/23 tablet (Nitrostat) Pain #1 tab Atorvastitin #1 ea 05/11/24 acetaminophen 500 mg capsule 1,000 mg (2 x 500 mg) PO .q8 PRN 02/16/25 fever or pain #30 caps cephalexin 500 mg capsule 500 mg PO QID 10 days #40 caps 02/16/25 ibuprofen 600 mg tablet 600 mg PO Q8H PRN fever or pain 02/16/25 #30 tabs cephalexin 500 mg capsule 500 mg PO BID 7 days #14 caps 05/14/25 doxycycline hyclate 100 mg capsule 100 mg PO BID 7 days #14 caps 05/14/25 Allergies Allergy/AdvReac Type Severity Reaction Status Date / Time No Known Allergies Allergy Verified 05/14/25 10:58 Review of Systems Review of Systems: CONST: Negative for fever, body aches and chills. HENT: Negative for neck pain/stiffness, headache, congestion, sore throat, swelling. EYES: Negative for discharge/pain or vision changes. RESP: Negative for cough/hemoptysis and shortness of breath. CV: Negative chest pain, difficulty breathing, palpitations. ABD: Negative pain, nausea, vomiting. : Negative increase frequency, dysuria, blood in urine or stool. POS L sided testicular swelling, pain radiating to lower abdomen MUSC: Negative for muscle aches, edema. SKIN: Negative rash, lesions/sores. NEURO: Negative headache, dizziness, weakness. Yes all other systems are reviewed and are negative [facility] Past Medical History Attestation statement: The following information was validated with the patient. Source: old records reviewed and nursing notes reviewed Medical History Primary hypertension No known health problems Family History Family History Mother Diabetes Father Diabetes Kidney failure Social History Social History Alcohol intake: current Alcohol intake frequency: does not drink Alcohol type: beer Patient Tobacco Use Status: Current everyday Tobacco user Physical Exam Vital Signs: Vital Signs: Last Vital Signs Temp 98.1 F 05/14/25 15:16 Pulse 69 05/14/25 15:16 Resp 20 05/14/25 15:16 BP 170/77 H 05/14/25 15:16 Pulse Ox 98 05/14/25 15:16 O2 Del Method Room Air 05/14/25 15:16 BMI result Body Mass Index 38.5 GENERAL APPEARANCE: ?AxOx4, generally well-appearing, no acute distress. HEENT: ?NC, AT. MMM. EOMI, clear conjunctiva, oropharynx clear. NECK: ?Supple without lymphadenopathy.? No stiffness or restricted ROM. HEART:? Normal rate and regular rhythm, normal S1/S1, no m/r/g LUNGS:? CTAB, moving air well. No crackles or wheezes are heard. ABDOMEN: ?Soft, nontender, nondistended with good bowel sounds heard. BACK: No CVAT, no obvious deformity. : No lesions, vesicles noted on testicles or penis, no discharge from meatus. Testicles with mild edema, scrotal thickening, mild erythema without warmth, TTP of diffuse testicles, cremasteric reflex intact, no tenderness to epididymis. EXTREMITIES: ?Without cyanosis, clubbing or edema. NEUROLOGICAL: ?Grossly nonfocal. Alert and oriented, moving all 4 extremities. Observed to ambulate with normal gait. Skin: ?Warm and dry without any rash. Medical Decision Making Medical Decision Making [facility] Narrative: 40-year-old male with medical history of HTN, NSTEMI, presents to the ED due to 3 days of left-sided testicular pain. Patient reports testicular pain started 3 days ago when he woke up in the morning and noticed pain and swelling of the left testicle. Patient states the pain has been progressively worsening and is now traveling into the right side of the lower abdomen, has noticed some redness to the area. Patient states pain is exacerbated with movement and pressure on the testicle. Patient has been taking Tylenol ibuprofen without effect. Patient reports history of cyst of the left testicle, and pain feels similar. Physical exam of the genitals reveal No lesions, vesicles noted on testicles or penis, no discharge from meatus. Testicles with mild edema, scrotal thickening, mild erythema without warmth, TTP of diffuse testicles, cremasteric reflex intact, no tenderness to epididymis. Labs reveal leukocytosis of 11.4, H&H stable, ALT elevated at 60, no electrolyte abnormalities. U/S scrotal Doppler reveals a nonvascular hypodensity in the inferior left testicle that is a probable abscess, with symmetric blood flow, area of hyperemia of the left scrotum consistent with cellulitis or fasciitis, early stage infection of the scrotum possible, and a 7 mm of scrotum thickness on the left side. Patient with edema of the scrotum, pain with palpation, U/S scrotum Doppler findings and physical symptoms consistent with a cellulitis of the scrotum. Patient being discharged with 7 day course of doxycycline and Keflex for bacterial coverage, with referral to Urology for follow up. I counseled patient to follow up with his primary care provider, and strict return precautions. Patient is in agreement with the plan. Differential Diagnosis Differential Diagnoses: The differential diagnosis associated with the presentation includes Testicular torsion Spermatocele Hydrocele Epididymitis Admission/Observation Consideration of admission/observation: Escalation of care including admission/observation considered Lab Data [facility] Lab Attestation statement: I reviewed the patient's lab results. 05/14/25 11:06 05/14/25 11:06 Labs: Lab Results 05/14/25 05/14/25 Range/Units 11:06 14:09 WBC 11.4 H (4.8-10.8) X10*3/uL RBC 4.75 (4.60-5.80) X10*6/uL Hgb 14.8 (14.0-18.0) g/dl Hct 43.1 (42.0-52.0) % MCV 90.7 (80.0-98.0) fL MCH 31.2 (27.0-33.0) pg MCHC 34.3 (31.0-36.0) g/dl RDW 12.8 (11.0-16.0) % Plt Count 318 (160-400) X10*3/uL MPV 8.9 L (9.4-12.4) fL Immature Gran % (Auto) 0.3 (0.0-0.4) % Neut % (Auto) 62.0 (45-73) % Lymph % (Auto) 28.7 (20-40) % [place] % (Auto) 7.3 (2-11) % Eos % (Auto) 1.3 (0-4) % Baso % (Auto) 0.4 (0-2) % Lymph # (Auto) 3.3 (1.2-4.9) X10*3/uL [place] # (Auto) 0.8 (0.1-1.2) X10*3/uL Eos # (Auto) 0.2 (0.0-0.4) X10*3/uL Baso # (Auto) 0.0 (0.0-0.2) X10*3/uL Abs Immat Gran (auto) 0.03 (0.00-0.03) X10*3/uL Absolute Neuts (auto) 7.1 (2.0-8.3) x10*3/uL Absolute Nucleated RBC 0.000 (0.0-0.012) X10*3/uL Nucleated RBC % (auto) 0.0 (0.0-0.2) /100WBC Sodium 141 (135-145) mmol/L Potassium 4.3 (3.3-5.1) mmol/L Chloride 107 (96-108) mmol/L Carbon Dioxide 26 (22-29) mmol/L Anion Gap 12 (12-20) BUN 12 (9-16) mg/dL Creatinine 1.14 (0.5-1.4) mg/dL Estim Creat Clear Calc 98.3 Estimated GFR > 60 Random Glucose 119 H (60-115) mg/dL Calcium 9.5 (8.4-10.2) mg/dL Total Bilirubin 0.4 (0.0-1.0) mg/dL AST 28 (5-37) U/L ALT 60 H (0-40) U/L Alkaline Phosphatase 82 (39-117) U/L Total Protein 7.4 (6.5-8.0) g/dL Albumin 4.5 (3.5-5.0) g/dL Urine Color Yellow Urine Appearance Clear Urine pH 5.5 (5.0-9.0) Ur Specific [place] 1.025 (1.005-1.025) Urine Protein Negative (Neg-Trace) mg/dL Urine Glucose (UA) Negative (Negative) mg/dL Urine Ketones Trace (Negative) mg/dL Urine Blood Negative (Negative) Urine Nitrite Negative (Negative) Ur Leukocyte Esterase Negative (Negative) Ur N gonorrhoeae DNA (PCR) NOT DETECTED (Not Detect.) Ur Chlamydia DNA (PCR) NOT DETECTED (Not Detect.) Independent Interpretation I performed an independent interpretation of an: Ultrasound Interpretation: I independently interpreted the scrotal ultrasound which reveals abscess of the left testicle, with cellulitis of the scrotum, I agree with the radiologist's interpretation Radiology Impression Discussion of test interpretation with radiology: I have reviewed the radiologist's reading. Radiologist Impression: U/S scrotal Doppler Findings: Right testicle normal size and echotexture, measuring 4.2 x 2.2 x 2.5cm. Normal color and spectral analysis. Left testicle normal size and echotexture, measuring 4.5 x 2.4 x 2.7 cm. Normal color and spectral analysis. Normal epididymides. A small fluid collection in the right scrotum is most likely physiologic. No varicoceles. Impression: On the worksheet, it is suggested that a nonvascular hypodensity in the inferior left testicle measuring 1.7 x 1.0 cm is possibly an abscess. It is unlikely that this hypodensity is related to testicular or epididymal abscess without reactive hydrocele and without asymmetric hyperemia involving the left testicle. Blood flow in left and right testicles is symmetric. An area of hyperemia in the left scrotum is more likely consistent with cellulitis or fasciitis unrelated to the testicle. Early stage infection of the scrotum is possible, correlate with clinical presentation. Scrotum skin thickness, 7 mm, is abnormal on the left side. This finding would correlate with scrotal cellulitis and/or fasciitis. This document has been electronically signed by: Ricki Barba MD on 05/14/2025 13:35:09 Dictated By: Ricki Barba MD Signed By: <Electronically signed by Ricki Barba MD in OV> 05/14/25 1335 External Record Review External record reviewed: Inpatient record, Office record and Outpatient record Chronic Conditions Patient?s care impacted by: Hypertension Discharge Plan Discharge Clinical Impression: Abscess of testis, Cellulitis of scrotum Patient Disposition: Home, Self-Care Additional Instructions: You were evaluated in the ED today due to testicular pain. Your blood work today did show an elevation in your white blood cell count suggesting infection, mild elevation in your random serum glucose of 119, and a mild elevation in your liver function tests with an ALT of 60. Your urine was negative for blood or infection. We are still waiting on results of your chlamydia and gonorrhea testing. You will be called if they come back positive. I encourage you to follow up with your primary care doctor on these findings today. The ultrasound of your testicles revealed a small abscess in the left testicle, with a skin infection of your scrotum. You will be prescribed a 7 day course of Keflex and doxycycline which is antibiotic for bacterial coverage. Additionally, you can manage pain at home by taking 500 mg of Tylenol, with 400 mg of ibuprofen every 6 hours, and icing the area. [facility] Urology will be contacting you within 2 business?days after being discharged from the Emergency?Department.? During this?phone call, they will inform you when your follow up appointment will be scheduled. If you have not received a call from [facility] after 2 business?days, please call the?office at [phone]. Please return to the emergency department if you experience fevers over 100.4?, worsening testicle pain, worsening swelling or redness of the testicles, inability to urinate, blood in the urine, or any new/worsening/concerning symptoms. Prescriptions: New cephalexin 500 mg capsule 500 mg PO BID 7 Days Qty: 14 0RF doxycycline hyclate 100 mg capsule 100 mg PO BID 7 Days Qty: 14 0RF No Action (DME) Atorvastitin tablet See Rx Instructions .Route .MEDSUPPLY Qty: 1 3RF Rx Instructions: take 1 tab daily ibuprofen 600 mg tablet 600 mg PO Q8H PRN (Reason: fever or pain) Qty: 30 0RF acetaminophen 500 mg capsule 1,000 mg PO .q8 PRN (Reason: fever or pain) Qty: 30 0RF cephalexin 500 mg capsule 500 mg PO QID 10 Days Qty: 40 0RF amlodipine 5 mg Tablet 5 mg PO DAILY Qty: 1 0RF Protocol: Hold for SBP< HOLD for SBP < : 90 nitroglycerin [Nitrostat] 0.4 mg Tablet, Sublingual 0.4 mg sublingual Q5MX3 PRN (Reason: Chest Pain) Qty: 1 0RF metoprolol tartrate 25 mg Tablet 25 mg PO BID Qty: 1 0RF Protocol: Hold for SBP/HR < HOLD for SBP < : 90 HOLD for HR < : 60 Referrals: [facility] Urology Services [Provider Group, Urology] Interventions: ED Discharge Assessment Last Done: 05/14/25 15:16 Discharge Date/Time: 05/14/25 15:16 Print Language: Malagasy
--- OUTSIDE RECORDS SUMMARY | 2025-05-14 11:43 | XMS_ITS | Encounter Summary ---
Author Organization [employer] Address [address] [place] [address] Care Team Providers Care Waiter/Waitress Name Role Phone Galina Denny MD Primary Care Pro vider Reason for Visit * Reason Onset Date Comments ER Follow-up 01/11/2024 Encounter Details Date Type Department Care Team ([facility] st Contact Info) Description 01/11/2024 Telephone [facility] [address] [place] [address] Galina Denny MD [address] [place], [place] [phone] ER Follow-up Social History Tobacco Use Types Packs/Day Years Used Date Smoking Tobacco: Former Cigarettes Smokeless Tobacco: Never Comments:Started 18 years ag o ,stopped for 3 months using patches-smokes 7 cig a day in last 20 years .PQT a year calc 7 Alcohol Use Standard Drinks/Week Comments Yes 0 (1 standard drink = 0.6 oz pur e alcohol) social Depression Answer Date Recorded Patient Health Questionnaire-9 Score 5 06/08/2023 Patient Health Questionnaire-9 Score 5 06/08/2023 Last PHQ-9: Questionnaire Data Not on file 1 08/08/2022 Housing Stability Answer Date Recorded What is [...] Answer Date Recorded Patient Health Questionnaire-2 Score 2 06/08/2023 Sex and Gender Information Value Date Recorded Sex Assigned at Male 06/02/2022 10:14 AM EDT Legal Sex Male 10:14 AM EDT Gender Identity Male 06/02/2022 10:14 AM EDT Sexual Orientation Straight 06/02/2022 10 :14 AM EDT documented as of this encounter Miscellaneous Notes * Telephone Encounter - Marylou Veras - 01/11/2024 10:55 AM EDT Tc from pt requesting a HDF appt. Hospital: [facility] then transferred to [facility] Date of admission: 11/29 Discharge date: 12/01 Diagnosed: Nsremi Please contact pt at [phone] documented in this encounter Plan of Treatment Not on file documented as of this encounter Visit Diagnoses Not on filedocumented in this encounter Additional Health Concerns Assessment Noted Time PHQ-9 Depression Total Score: 5 06/08/20 9:10 AM EST documented as of this encounter Care Teams Waiter/Waitress Relationship Specialty Start Date End Date Galina Denny MD [address] [place] [phone] PCP - General Internal Medicine 06/04/23 documented as of this encounter
--- OUTSIDE RECORDS SUMMARY | 2025-05-14 11:43 | XMS_ITS | Encounter Summary ---
Author Organization [employer] Address [address] [place] [address] Care Team Providers Care Marine Engine Machinist Name Role Phone Galina Denny MD Primary Care Pro vider Encounter Details Date Type Department Care Team (Late st Contact Info) Description 05/14/2025 Orders Only GENERIC EXTERNAL DATA DEPARTMENT Provider, Generic External Data Social History Tobacco Use Types Packs/Day Years Used Date Smoking Tobacco: Former Cigarettes Smokeless Tobacco: Never Comments:Started 18 years ag o ,stopped for 3 months using patches-Now smokes [...] AM EDT documented as of this encounter Plan of Treatment Not on file documented as of this encounter Procedures Procedure Name Priority Date/Time Associated Diagnosis Comments CBC WITH AUTO DIFFERENTIAL Routine 05/14/2025 11:06 AM EDT COMPREHENSIVE METABOLIC PANEL Routine 05/14/2025 11:06 AM EDT documented in this encounter Results * (ABNORMAL) Comprehensive Metabolic Panel (05/14/2025 11:06 AM EDT) Sodium 141 135 - 145 mmol/L [facility] Potassium 4.3 3.3 - 5.1 mmol/L [facility] Chloride 107 96 - 108 mmol/L [facility] Carbon Dioxide 26 22 - 29 mmol/L [facility] Anion Gap 12 12 - 20 [facility] Urea Nitrogen (BUN) 12 9 - 16 mg/dL [facility] Creatinine, Serum 1.14 0.5 - 1.4 mg/dL [facility] Creatinine Clr Calc Pharmacy 98.3 [facility] Comment:eGFR (calculated fro m the MDRD study equation) and eCrCl(calculated from the Cockcroft-Gault equation) are based ondifferent parameters and may not yield comparable results.If eCrCl result is absurd, please check patient'sheight/weight. Estimated Glomerular Filt Rate >60 [facility] Comment:Chronic Kidney Disea se: Estimated GFR < 60 mL/min/1.03x1Qixmia Kidney Disease: Estimated GFR < 15 mL/min/1.73m2 Glucose 119(H) 60 - 115 mg/dL [facility] Calcium 9.5 8.4 - 10.2 mg/dL [facility] Bilirubin, Total 0.4 0.0 - 1.0 mg/dL [facility] Aspartate Amino Transferase 28 5 - 37 U/L [facility] Alanine Aminotransferase 60(H) 0 - 40 U/L [facility] Total Protein 7.4 6.5 - 8.0 g/dL [facility] Albumin Level 4.5 3.5 - 5.0 g/dL [facility] Alkaline Phosphatase 82 39 - 117 U/L [facility] 05/14/2025 11:0 6 AM EDT 05/14/2025 11:10 AM EDT us Generic External Data Provider LAB BLOOD ORDERAB LES Final Result [facility] [address] [place] [address] [phone] * (ABNORMAL) CBC auto differential (05/14/2025 11:06 AM EDT) White Blood Count 11.4(H) 4.8 - 10.8 X10*3/uL [facility] Red Blood Count 4.75 4.60 - 5.80 X10*6/uL [facility] Hemoglobin 14.8 14.0 - 18.0 g/dl [facility] Hematocrit 43.1 42.0 - 52.0 % [facility] Mean Corpuscular Volume 90.7 80.0 - 98.0 fL [facility] Mean Corpuscular Hemoglobin 31.2 27.0 - 33.0 pg [facility] Mean Corpuscular HGB Conc 34.3 31.0 - 36.0 g/dl [facility] Red Cell Distribution Width 12.8 11.0 - 16.0 % [facility] Platelet Count 318 160 - 400 X10*3/uL [facility] Mean Platelet Volume 8.9(L) 9.4 - 12.4 fL [facility] Neutrophils Percent Auto 62.0 45 - 73 % [facility] Imm Gran Pct Auto 0.3 0.0 - 0.4 % [facility] Lymphocytes Percent Auto 28.7 20 - 40 % [facility] Monocytes Percent Auto 7.3 2 - 11 % [facility] Eosinophils Percent Auto 1.3 0 - 4 % [facility] Basophils Percent Auto 0.4 0 - 2 % [facility] NRBC Pct Auto 0.0 0.0 - 0.2 /100WBC [facility] Neutrophils Absolute Auto 7.1 2.0 - 8.3 x10*3/uL [facility] Imm Gran Abs Auto 0.03 0.00 - 0.03 X10*3/uL [facility] Lymphocytes Absolute Auto 3.3 1.2 - 4.9 X10*3/uL [facility] Monocytes Absolute Auto 0.8 0.1 - 1.2 X10*3/uL [facility] Eosinophils Absolute Auto 0.2 0.0 - 0.4 X10*3/uL [facility] Basophils Absolute Auto 0.0 0.0 - 0.2 X10*3/uL [facility] NRBC Abs Auto 0.000 0.0 - 0.012 X10*3/uL [facility] 05/14/2025 11:0 6 AM EDT 05/14/2025 11:10 AM EDT us Generic External Data Provider LAB BLOOD ORDERAB LES Final Result [facility] [address] [place] [phone] documented in this encounter Visit Diagnoses Not on filedocumented in this encounter Additional Health Concerns Assessment Noted Time PHQ-9 Depression Total Score: 0 06/22/20 24 11:05 AM EST documented as of this encounter Care Teams Marine Engine Machinist Relationship Specialty Start Date End Date Galina Denny MD [address] [place] [phone] PCP - General Internal Medicine 06/04/23 documented as of this encounter
--- OUTSIDE RECORDS SUMMARY | 2025-05-14 11:43 | XMS_ITS | Clinical Summary ---
Author Organization [employer] Address [address] [facility] [facility] [address] [place] [address] Care Team Providers Care Crime Scene Specialist Name Role Phone Galina Denny MD Primary Care Pro vider Allergies No known active allergies Medications * This document contains information received from the source organization and may not represent a complete record from that organization. Blood Pressure kit 1 Device Once per day. 1 kit 02/02/20 24 Active nystatin (Mycostatin) 944963 UNIT/GM powder Apply topically 2 times daily. 30 g 06/22/20 24 025 Active amLODIPine (Norvasc) 5 MG tablet TAKE 1 TABLET BY MOUTH EVERY DAY 90 tablet 04/24/20 25 Active metoprolol tartrate (Lopressor) 25 MG tablet TAKE 1 TABLET BY MOUTH TWICE DAILY 180 tablet 04/24/20 25 Active metoprolol tartrate (Lopressor) 25 MG tablet TAKE 1 TABLET BY MOUTH TWICE DAILY 180 tablet 10/28/19 25 025 Discontinued(Re order (will not trigger notification to Pharmacy)) amLODIPine (Norvasc) 5 MG tablet TAKE 1 TABLET BY MOUTH EVERY DAY 90 tablet 01/19/20 25 025 Discontinued Active Problems Problem Noted Date Diagnosed Date Tinea pedis 06/22/2024 Right foot pain 06/22/2024 HLD (hyperlipidemia) 03/22/2024 Transaminitis 03/22/2024 HTN (hypertension) 02/02/2024 Abnormal EKG 02/02/2024 Tobacco use 06/05/2023 Obesity (BMI 30-39.9) 06/05/2023 Bipolar 1 disorder (CMS/HCC) 06/05/2023 Assessment & Plan (06/08/2023 9:44 AM [...] Addressed This Visit Other Bipolar 1 disorder ([facility]/HCC) Anxiety Financial problems Patient ready to address current needs No Strengths include ability to use coping skills and mechanisms to decrease symptoms. PLAN: 1. Follow up with [facility]: Not recommended for follow-up 2. Patient goal [...] decrease symptoms. PLAN: 1. Follow up with [facility]: Not recommended for follow-up 2. Patient goal [...] Addressed This Visit Other Bipolar 1 disorder ([facility]) Anxiety Financial problems Patient ready to address current needs No Strengths include ability to use coping skills and mechanisms to decrease symptoms. PLAN: 1. Follow up with [facility]: Not recommended for follow-up 2. Patient goal is continue using coping skills and be able to manage symptoms 3. Behavioral Recommendations a. Incorporate self-care into daily routine b. Use coping mechanisms to decrease symptoms c. Connect with clinician during next physical if needed Resolved Problems Problem Noted Date Diagnosed Date Resolved Date Lymphadenopathy 08/11/2023 02/02/2024 Encounters Date Type Department Care Team Description 05/14/2025 Orders Only GENERIC EXTERNAL DATA DEPARTMENT Provider, Generic External Data 04/24/2025 Refill [facility] [address] [place] [phone] Galina Denny MD 04/24/2025 Refill [facility] [address] [place] [address] Sharmila Manning MD 03/03/2025 Telephone [facility] [address] [place] [phone] Galina Denny MD 03/02/2025 Telephone [facility] [address] [place] [address] Galina Denny MD chart prep 02/24/2025 Patient Outreach [facility] [address] [place] [address] Galina Denny MD Pre-visit Planning (Pre-visit planning - unable to leave a message ) 02/16/2025 Orders Only [facility] External Provider, [facility] from Last 3 Months Immunizations Immunization Administration Dates Next Due DTP 04/09/1989, 8,01/08/1987,1985,02/20/1986 Hep B, Adolescent or Pediatric 12/07/1998,1997,03/19/1998 Hib (HbOC) 02/20/1986 IPV 04/09/1989, 7,02/20/1986,1984 MMR 06/24/1996,02/20/1986 Pneumococcal [...] 06/22/2024 11:00 AM EST Plan of Treatment Health Maintenance Due Date Last Done Comments Dental Oral Exam 1984 Dental Prophylaxis 1984 Dental X-Ray: Bitewings 1984 Family Planning (PISQ) 01/29/1999 HPV Vaccines (1 - Male 3-dose series) 01/29/1999 Dental X-Ray: Full Mouth 10/22/2011 10/20/2008 SDOH Screening 01/10/2025 01/11/2024 COVID-19 Vaccine (3 - season) 2025 01/08/2021, 12/12/2020 Influenza Vaccine (#1) 2025 Alcohol/Substance Use Screening 06/22/2025 06/22/2024 Depression Screening 06/22/2025 06/22/2024, 06/22/20 24 Disability Screening 06/22/2025 06/22/2024 Tobacco Screening 06/22/2025 [...] Procedure Name Priority Date/Time Associated Diagnosis Comments COMPREHENSIVE METABOLIC PANEL Routine 05/14/2025 11:06 AM EDT CBC WITH AUTO DIFFERENTIAL Routine 05/14/2025 11:06 AM EDT URINALYSIS WITH REFLEX MICROSCOPIC Routine 02/16/2025 8:15 PM EDT US SCROTUM Routine 02/16/2025 12:53 PM EDT [...] Recently Relevant to Health Maintenance Results * (ABNORMAL) CBC auto differential (05/14/2025 11:06 AM EDT) Pathologist [facility] White Blood Count 11.4(H) 4.8 - 10.8 X10*3/uL [facility] Red Blood Count 4.75 4.60 - 5.80 X10*6/uL [facility] Hemoglobin 14.8 14.0 - 18.0 g/dl [facility] Hematocrit 43.1 42.0 - 52.0 % [facility] Mean Corpuscular Volume 90.7 80.0 - 98.0 fL [facility] Mean Corpuscular Hemoglobin 31.2 27.0 - 33.0 pg [facility] Mean Corpuscular HGB Conc 34.3 31.0 - 36.0 g/dl [facility] Red Cell Distribution Width 12.8 11.0 - 16.0 % [facility] Platelet Count 318 160 - 400 X10*3/uL [facility] Mean Platelet Volume 8.9(L) 9.4 - 12.4 fL [facility] Neutrophils Percent Auto 62.0 45 - 73 % [facility] Imm Gran Pct Auto 0.3 0.0 - 0.4 % [facility] Lymphocytes Percent Auto 28.7 20 - 40 % [facility] Monocytes Percent Auto 7.3 2 - 11 % [facility] Eosinophils Percent Auto 1.3 0 - 4 % [facility] Basophils Percent Auto 0.4 0 - 2 % [facility] NRBC Pct Auto 0.0 0.0 - 0.2 /100WBC [facility] Neutrophils Absolute Auto 7.1 2.0 - 8.3 x10*3/uL [facility] Imm Gran Abs Auto 0.03 0.00 - 0.03 X10*3/uL [facility] Lymphocytes Absolute Auto 3.3 1.2 - 4.9 X10*3/uL [facility] Monocytes Absolute Auto 0.8 0.1 - 1.2 X10*3/uL [facility] Eosinophils Absolute Auto 0.2 0.0 - 0.4 X10*3/uL [facility] Basophils Absolute Auto 0.0 0.0 - 0.2 X10*3/uL [facility] NRBC Abs Auto 0.000 0.0 - 0.012 X10*3/uL [facility] 05/14/2025 11:0 6 AM EDT 05/14/2025 11:10 AM EDT us Generic External Data Provider LAB BLOOD ORDERAB LES Final Result [facility] [address] [place] [phone] * (ABNORMAL) Comprehensive Metabolic Panel (05/14/2025 11:06 AM EDT) Sodium 141 135 - 145 mmol/L [facility] Potassium 4.3 3.3 - 5.1 mmol/L [facility] Chloride 107 96 - 108 mmol/L [facility] Carbon Dioxide 26 22 - 29 mmol/L [facility] Anion Gap 12 12 - 20 [facility] Urea Nitrogen (BUN) 12 9 - 16 mg/dL [facility] Creatinine, Serum 1.14 0.5 - 1.4 mg/dL [facility] Creatinine Clr Calc Pharmacy 98.3 [facility] Comment:eGFR (calculated fro m the MDRD study equation) and eCrCl(calculated from the Cockcroft-Gault equation) are based ondifferent parameters and may not yield comparable results.If eCrCl result is absurd, please check patient'sheight/weight. Estimated Glomerular Filt Rate >60 [facility] Comment:Chronic Kidney Disea se: Estimated GFR < 60 mL/min/1.99m6Asjerf Kidney Disease: Estimated GFR < 15 mL/min/1.73m2 Glucose 119(H) 60 - 115 mg/dL [facility] Calcium 9.5 8.4 - 10.2 mg/dL [facility] Bilirubin, Total 0.4 0.0 - 1.0 mg/dL [facility] Aspartate Amino Transferase 28 5 - 37 U/L [facility] Alanine Aminotransferase 60(H) 0 - 40 U/L [facility] Total Protein 7.4 6.5 - 8.0 g/dL [facility] Albumin Level 4.5 3.5 - 5.0 g/dL [facility] Alkaline Phosphatase 82 39 - 117 U/L [facility] 05/14/2025 11:0 6 AM EDT 05/14/2025 11:10 AM EDT us Generic External Data Provider LAB BLOOD ORDERAB LES Final Result [facility] [address] [place] [phone] * (ABNORMAL) Urinalysis w/reflex microscopic (02/16/2025 8:15 PM EDT) Color Urine Dark Yellow [facility] Appearance Urine Clear [facility] PH 5.0 5.0 - 9.0 [facility] Glucose Urine UA Negative Negative mg/dL [facility] Urine Blood Negative Negative [facility] Specific [place] - Urine >=1.030(H) 1.005 - 1.025 [facility] Urine Protein Negative Neg-Trace mg/dL [facility] Urine Ketones Negative Negative mg/dL [facility] Nitrite Urine Negative Negative [facility] Leukocyte Esterase Urine Negative Negative [facility] 02/16/2025 8:15 PM EDT 02/16/2025 8:18 PM EDT Narrative [facility] - 02/16/2025 8:25 PM EDT [id number], Clean Catch us Generic External Data Provider LAB URINE ORDERAB LES Final Result [facility] [address] [place] [phone] * US Scrotum (02/16/2025 12:53 PM EDT) Anatomical Region Laterality Modality Body Ultrasound 02/16/2025 12:5 3 PM EDT Narrative 02/16/2025 2:31 PM EDT [address] [address] Ultrasound Report Signed Patient: Lito Trujillo MR#: [id number] : 1985 Acct:[id number] Age/Sex: 40 / M ADM Date: 02/16/25 Loc: HO.ED Attending Dr: Ordering Physician: Mami Chaudhary NP Date of Service: 02/16/25 Procedure(s): US scrotum Accession Number(s): [id number] cc: Galina Denny MD; Mami Chaudhary NP [...] 02/16/25 1428 DD/ 1253 TD/TT: 02/16/25 1301 Certified Pesticide Applicator: Procedure Note Donotuseinterpreter, Image - 02/16/2025 [place] [address] Ultrasound Report Signed Patient: Lito Trujillo#: [id number] : 1985Acct:[id number] Age/Sex: 40 / MADM Date: 02/16/25 Loc: HO.ED Attending Dr: Ordering Physician: Mami Chaudhary NP Date of Service: 02/16/25 Procedure(s): US scrotum Accession Number(s): [id number] cc: Galina Denny MD; Mami Chaudhary NP [...] 02/16/25 1428 DD/ 1253 TD/TT: 02/16/25 1301 Certified Pesticide Applicator: [facility] External Provider IMG US PROCEDURES Edited Result - Final * Hepatitis C Antibody with Reflex to HCV, RNA, Quantitative, Real-Time PCR (03/15/2024 8:40 AM EDT) Hepatitis C Antibody Nonreactive Nonreactive [facility] Comment:Antibodies to HCV no t detected; does not exclude early acuteHCV infection. Blood Venous blood specimen / Unknown 03/15/2024 8:40 AM EDT 03/15/2024 11:26 AM EDT us Galina Maynard MD LAB BLOOD ORDERAB LES Final Result Performing Organization Address City/[facility]/ZIP Co de Phone Number [facility] [address] [place] [phone] * HIV-1/2 Antigen and Antibodies, Fourth Generation, with Reflexes (03/15/2024 8:40 AM EDT) Pathologist [facility] HIV AB/AG Nonreactive Nonreactive [facility] Comment:HIV-1 p24 Ag and/or HIV-1/HIV-2 Ab not detected.A test result that is nonreactive does not exclude thepossibility of exposure to or infection with HIV-1 and/orHIV-2. Nonreactive results in this assay for individualswith prior exposure to HIV-1 and/or HIV-2 may be due toantigen and antibody levels that are below the limit ofdetection of this assay.The FoxyP2 HIV Ag/Ab Combo assay result andsupplemental assay results should be interpreted inconjunction with the patient's clinical presentation,history and other laboratory results. If the results areinconsistent with clinical evidence, additional testing issuggested to confirm the result. Blood Venous blood specimen / Unknown 03/15/2024 8:40 AM EDT 03/15/2024 11:26 AM EDT us Galina Maynard MD LAB BLOOD ORDERAB LES Final Result Performing Organization Address City/[facility]/ZIP Co de Phone Number [facility] [address] [place] [address] [phone] * (ABNORMAL) Lipid Panel, Standard (03/15/2024 8:40 AM EDT) Triglycerides 120 <150 mg/dL [facility] Comment:Desirable Triglyceri de: less than 150 mg/dLBorderline High Triglyceride 150-199 mg/dLHigh Triglyceride: 200-499 mg/dLVery High Triglyceride: greater than or equal to 5OO mg/dL Cholesterol 203(H) <200 mg/dL [facility] Comment:Desirable Cholestero l: less than 200 mg/dLBorderline High Cholesterol: 200-239 mg/dLHigh Cholesterol: greater than 239 mg/dL LDL Cholesterol Calculated 132(H) <100 mg/dL [facility] Comment:Desirable LDL: less than 100 mg/dLNear Optimal/Above Optimal LDL: 110- 129 mg/dLBorderline High LDL: 130-159 mg/dLHigh LDL: 160-189 mg/dLVery High LDL: greater than or equal to 190 mg/dL HDL Cholesterol 47 >40 mg/dL [facility] Comment:Desirable HDL: great er than 40 mg/dL Note: This HDL assay may give artificially low results in patients with liver disease. Blood Venous blood specimen / Unknown 03/15/2024 8:40 AM EDT 03/15/2024 11:33 AM EDT Galina Maynard MD LAB BLOOD ORDERAB LES Final Result [facility] [address] [place], [place] [phone] from Last 3 Months or Most Recently Relevant to Health Maintenance Insurance [facility] STANDARD MEDICARE DENTAL-[facility] MEDICAID STAND ADULT [address] [place] [id number] [place] [address] Care Teams Crime Scene Specialist Relationship Specialty Start Date End Date Galina Denny MD [address] [place] [phone] PCP - General Internal Medicine 06/04/23
--- OUTSIDE RECORDS SUMMARY | 2025-05-14 11:43 | XMS_ITS | Encounter Summary ---
Author Organization [employer] Address [address] [place] [address] [address] [place] [address] Care Team Providers Care Hogshead Press Operator Name Role Phone Galina Denny MD Primary Care Pro vider Reason for Visit * Reason Onset Date Comments New Patient 04/29/2023 Encounter Details Date Type Department Care Team ([facility] st Contact Info) Description 04/29/2023 Telephone [facility] MEDICINE [address] [place] [address] Gerson Oh MD [address] [place] [address] New Patient Social History Tobacco Use Types Packs/Day Years Used Date Smoking Tobacco: Never Assessed Sex and Gender Information Value Date Recorded Sex Assigned at Male 06/02/2022 10:14 AM EDT Legal Sex Male 10:14 AM EDT Gender Identity Male 06/02/2022 10:14 AM EDT Sexual Orientation Straight 06/02/2022 10 :14 AM EDT documented as of this encounter Miscellaneous Notes * Telephone Encounter - Cari Gottlieb Sara - 04/29/2023 2:43 PM EDT PAR Cari Gottlieb called pt to Offer RESPIRATORY SUPPORT TECHNICIAN appt. Pt demographics and insurance information were verified. Pt reports the following medical conditions: Depression Bipolar ( Diagnosed 15 years ago ). Ptis currently taking medication: No . Pt given RESPIRATORY SUPPORT TECHNICIAN appt with Dr. Lomax on 06/04/2023 10:15 am. Pt will be sent appt reminder card and medical release form and agrees to complete and to return to medical records prior to RESPIRATORY SUPPORT TECHNICIAN appt. documented in this encounter Plan of Treatment Not on file documented as of this encounter Visit Diagnoses Not on filedocumented in this encounter Care Teams Hogshead Press Operator Relationship Specialty Start Date End Date Galina Denny MD [address] [place] [phone] PCP - General Internal Medicine 06/04/23 documented as of this encounter
--- NOTE | 2025-05-14 12:33 | PC.NURSE ---
This RNpresent for provider exam. Left testi is very red, swollen, tender, somewhat hard. Pt states issue has been goingon x 3 days. no discharge.
[2025-05-14 14:16] LABS: Appearance Urine Clear; Glucose Urine UA Negative (Negative); PH 5.5 (5.0-9.0); Specific Gravity - Urine 1.025 (1.005-1.025)
[2025-05-14 14:34] VITALS: BP 170/77; PULSE 69; RESP 20; TEMP 36.7; O2SAT 98
[2025-05-14 15:16] VITALS: BP 170/77; PULSE 69; RESP 20; TEMP 36.7; O2SAT 98
[2025-05-14 15:56] LABS: CT PCR Urine NOT DETECTED (Not Detect.); NG PCR Urine NOT DETECTED (Not Detect.)
== END 2025-05-14 15:16 | disposition home or self-care (01) ==
PROVIDERS: Emergency Provider Emergency Medicine; PCP Student in an Organized Health Care Education/Training Program
DX: N45.4 Abscess of epididymis or testis (principal); N50.89 Other specified disorders of the male genital organs; I10 Essential (primary) hypertension
CPT/HCPCS: 36415; 76870; 80053; 81003; 85025; 87491; 87591; 93975; 99283; 99284

== ENCOUNTER → 2025-05-14 12:31 | Outpatient (BNV) | payer MEDICARE, MEDICAID, SELFPAY | PROVIDERS: Emergency Provider Emergency Medicine; PCP Student in an Organized Health Care Education/Training Program; Visit Provider Radiology Diagnostic Radiology | DX: N50.812 Left testicular pain (principal) | CPT/HCPCS: 76870; 93975 ==